=== PATIENT | male | born 1950 | race African-American/Black ===

== ENCOUNTER 2018-07-22 08:16 | Inpatient (IN) | payer SELFPAY ==
[~2018-07-22] VITALS: Ht 175.3 cm; Wt 68.0 kg
[2018-07-22] MEDS ORDERED: ALBUTEROL SULFATE 2.5 MG/3 ML NEBU. NEB ONE (08:30)
--- NOTE | 2018-07-22 09:02 | RAD ---
Chest, PA and Lateral: Technique: PA and lateral views of the chest were obtained. History: Cough, shortness of breath. Comparison: None. Findings: Low lung volumes accentuate heart size and pulmonary vascularity. Mild cardiomegaly. Small bilateral pleural effusions identified with bibasilar lung airspace opacity likely atelectasis or infiltrates. There is mild diffuse prominent bilateral interstitial markings. IMPRESSION: 1. Mild diffuse prominent bilateral interstitial lung markings likely congestive changes. 2. Bibasilar lung airspace opacities likely atelectasis or infiltrates with small bilateral pleural effusions. Electronically signed by: Lionel Mason MD (07/22/2018 8:58 AM) [id number]
[2018-07-22 09:04] LABS: INFLUENZA A PATIENT NEGATIVE (NEGATIVE); INFLUENZA B PATIENT NEGATIVE (NEGATIVE)
[2018-07-22 09:08] LABS: BILIRUBIN,URINE NEGATIVE (NEG); CLARITY,URINE CLEAR; COLOR,URINE YELLOW; NITRITE,URINE NEGATIVE (NEG); PH,URINE 5.5; PROTEIN,URINE >=300 mg/dL (NEG-TRACE); UROBILINOGEN,URINE 0.2 mg/dL (0.2 mg/dL)
[2018-07-22 09:16] LABS: AMORPHOUS SEDIMENT,UR PRESENT /HPF; HYALINE CASTS, URINE FEW /HPF; SPERM,URINE PRESENT /HPF; SQUAMOUS EPITHELIAL CELL,UR MOD /LPF
[2018-07-22 09:17] LABS: BACTERIA,URINE FEW /HPF (0-FEW)
--- NOTE | 2018-07-22 09:47 | EKG ---
[facility] [address] [place] [address] Test Date: 2018-07-22 Test Time: 08:23:23 Pat Name: NEVA PARMAR Department: Room: Gender: M Relish Maker: : 1950 Requested By: MARILYN SNOW Order Number: [id number] Reading MD: Antonio Gallegos MD Measurements Intervals [place] Rate: 101 P: 49 VA: 178 QRS: -56 QRSD: 98 T: 67 QT: 344 QTc: 447 Interpretive Statements SINUS TACHYCARDIA CONSISTENT WITH ANTEROSEPTAL INFARCT PROBABLY OLD CONSIDER PRIOR INFERIOR INFARCT NON-SPECIFIC ST/T CHANGES Electronically Signed On 07-28-2018 9:21:25 PIPE RECOVERY SPECIALIST by Antonio Gallegos MD
[2018-07-22 09:48] LABS: BASO # 0.1 x10^3/uL (0.0-0.2); BASO % 1 % (0-3); EOS # 0.1 x10^3/uL (0.0-0.7); EOS % 2 % (0-3); HEMATOCRIT 30.3 % (39.0-53.0); HEMOGLOBIN 9.8 g/dL (13.0-17.5); LYMPH # 1.6 x10^3/uL (1.0-4.8); LYMPH % 33 % (24-48); MEAN CORPUSCULAR HEMOGLOBIN 28 pg (25-35); MEAN CORPUSCULAR HGB CONC 32 g/dL (31-37); MEAN CORPUSCULAR VOLUME 87 fL (79-100); MONO # 0.6 x10^3/uL (0.0-1.1); MONO % 11 % (0-9); NEUT # 2.6 x10^3uL (1.8-7.7); NEUT % 52 % (31-73); PLATELET COUNT 532 x10^3/uL (140-400); RED CELL DISTRIBUTION WIDTH 13.7 % (11.5-14.5)
[2018-07-22 09:54] LABS: CALCIUM 9.4 mg/dL (8.5-10.1); CREATININE 4.5 mg/dL (0.7-1.3); GFR 15.9; POTASSIUM 5.2 mmol/L (3.5-5.1)
[2018-07-22 10:08] LABS: ALBUMIN 2.6 g/dL (3.4-5.0); ALBUMIN/GLOBULIN RATIO 0.6 (1.0-1.7); TOTAL BILIRUBIN 0.3 mg/dL (0.2-1.0); TOTAL PROTEIN 7.1 g/dL (6.4-8.2)
[2018-07-22] MEDS ORDERED: IV NORMAL SALINE 1000ML BAG 1,000 ML IV ONE (10:15)
[2018-07-22] MEDS ORDERED: SODIUM POLYSTYRENE SULFONATE 15 GM/60 ML ORAL.SUSP. PO ONE (10:15)
--- NOTE | 2018-07-22 10:56 | PHYS DOC ---
Past Medical History Past Medical History: Asthma, COPD, Hypertension Past Surgical History: No Surgical History Alcohol Use: None Drug Use: None Adult General Chief Complaint Chief Complaint: SHORTNESS OF BREATH HPI HPI Patient is a 68 year old male who presents with worsening shortness of air and a cough �3 days. The patient is normally seen at the [place]. He states that he had lab work drawn 3 weeks ago and has never received a call that there were any abnormalities. He denies chest pain. He denies any history of kidney disease. He does not have dialysis. He denies fevers or body aches. He did have one episode of vomiting yesterday. Review of Systems Review of Systems Constitutional: Denies fever or chills [] Eyes: Denies change in visual acuity, redness, or eye pain [] HENT: Denies nasal congestion or sore throat [] Respiratory: See history of present illness Cardiovascular: No additional information not addressed in HPI [] GI: See history of present illness : Denies dysuria or hematuria [] Musculoskeletal: Denies back pain or joint pain [] Integument: Denies rash or skin lesions [] Neurologic: Denies headache, focal weakness or sensory changes [] Endocrine: Denies polyuria or polydipsia [] All other systems were reviewed and found to be within normal limits, except as documented in this note. Current Medications Current Medications Current Medications Medications (Trade) Dose Ordered Sig/Boogie Start Time Stop Time Status Last Admin Dose Admin Albuterol Sulfate (Ventolin Neb Soln) 2.5 mg 1X ONCE 07/22/18 08:30 07/22/18 09:07 DC 07/22/18 09:05 2.5 MG Allergies Allergies Allergies Coded Allergies Type Severity Reaction Last Updated Verified Penicillins Allergy Intermediate 07/22/18 Yes Physical Exam Physical Exam Constitutional: Well developed, well nourished, no acute distress, non-toxic appearance. [] HENT: Normocephalic, atraumatic, bilateral external ears normal, oropharynx moist, no oral exudates, nose normal. [] Eyes: PERRLA, EOMI, conjunctiva normal, no discharge. [] Neck: Normal range of motion, no tenderness, supple, no stridor. [] Cardiovascular:Heart rate regular rhythm, no murmur [] Lungs & Thorax: Bilateral breath sounds wet to bases with no wheezing noted, dry cough noted Abdomen: Bowel sounds normal, soft, no tenderness, no masses, no pulsatile masses. [] Skin: Warm, dry, no erythema, no rash. [] Back: No tenderness, no CVA tenderness. [] Extremities: No tenderness, no cyanosis, no clubbing, ROM intact, no edema. [] Neurologic: Alert and oriented X 3, normal motor function, normal sensory function, no focal deficits noted. [] Psychologic: Affect normal, judgement normal, mood normal. [] Current Patient Data Vital Signs Vital Signs Date Time Temp Pulse Resp B/P (MAP) Pulse Ox O2 Delivery O2 Flow Rate FiO2 07/22/18 09:36 101 20 136/79 (98) 100 Room Air 07/22/18 08:28 98.7 98.7 Lab Values Laboratory Tests Test 07/22/18 08:40 07/22/18 08:50 07/22/18 09:23 Influenza Type A Antigen Negative (NEGATIVE) Influenza Type B Antigen Negative (NEGATIVE) Urine Collection Type Unknown Urine Color Yellow Urine Clarity Clear Urine pH 5.5 Urine Specific [place] 1.020 Urine Protein >=300 mg/dL (NEG-TRACE) Urine Glucose (UA) 100 mg/dL (NEG) Urine Ketones (Stick) Negative mg/dL (NEG) Urine Blood Moderate (NEG) Urine Nitrite Negative (NEG) Urine Bilirubin Negative (NEG) Urine Urobilinogen Dipstick 0.2 mg/dL (0.2 mg/dL) Urine Leukocyte Esterase Negative (NEG) Urine RBC 1-2 /HPF (0-2) Urine WBC 1-4 /HPF (0-4) Urine Squamous Epithelial Cells Mod /LPF Urine Amorphous Sediment Present /HPF Urine Bacteria Few /HPF (0-FEW) Urine Hyaline Casts Few /HPF Urine Sperm Present /HPF White Blood Count 5.0 x10^3/uL (4.0-11.0) Red Blood Count 3.50 x10^6/uL (4.30-5.70) L Hemoglobin 9.8 g/dL (13.0-17.5) L Hematocrit 30.3 % (39.0-53.0) L Mean Corpuscular Volume 87 fL (79-100) Mean Corpuscular Hemoglobin 28 pg (25-35) Mean Corpuscular Hemoglobin Concent 32 g/dL (31-37) Red Cell Distribution Width 13.7 % (11.5-14.5) Platelet Count 532 x10^3/uL (140-400) H Neutrophils (%) (Auto) 52 % (31-73) Lymphocytes (%) (Auto) 33 % (24-48) Monocytes (%) (Auto) 11 % (0-9) H Eosinophils (%) (Auto) 2 % (0-3) Basophils (%) (Auto) 1 % (0-3) Neutrophils # (Auto) 2.6 x10^3uL (1.8-7.7) Lymphocytes # (Auto) 1.6 x10^3/uL (1.0-4.8) Monocytes # (Auto) 0.6 x10^3/uL (0.0-1.1) Eosinophils # (Auto) 0.1 x10^3/uL (0.0-0.7) Basophils # (Auto) 0.1 x10^3/uL (0.0-0.2) Sodium Level 140 mmol/L (136-145) Potassium Level 5.2 mmol/L (3.5-5.1) H Chloride Level 104 mmol/L (98-107) Carbon Dioxide Level 22 mmol/L (21-32) Anion Gap 14 (6-14) Blood Urea Nitrogen 61 mg/dL (8-26) H Creatinine 4.5 mg/dL (0.7-1.3) H Estimated GFR (Cockcroft-Gault) 15.9 BUN/Creatinine Ratio 14 (6-20) Glucose Level 245 mg/dL (70-99) H Lactic Acid Level 2.0 mmol/L (0.4-2.0) Calcium Level 9.4 mg/dL (8.5-10.1) Total Bilirubin 0.3 mg/dL (0.2-1.0) Aspartate Amino Transferase (AST) 51 U/L (15-37) H Alanine Aminotransferase (ALT) 105 U/L (16-63) H Alkaline Phosphatase 206 U/L (46-116) H Troponin I Quantitative 1.190 ng/mL (0.000-0.055) TN-Zuf-X-Type Natriuretic Peptide > 49715 pg/mL (0-124) H Total Protein 7.1 g/dL (6.4-8.2) Albumin 2.6 g/dL (3.4-5.0) L Albumin/Globulin Ratio 0.6 (1.0-1.7) L Laboratory Tests 07/22/18 09:23 Laboratory Tests 07/22/18 09:23 EKG EKG [] Radiology/Procedures Radiology/Procedures [] Course & Med Decision Making Course & Med Decision Making Pertinent Labs and Imaging studies reviewed. (See chart for details) []The patient is being admitted to Dr. Tay's service. Pulmonology, cardiology and nephrology have all been consulted. The patient was given a liter of fluids and Kayexalate in the emergency department. He was also given a nebulizer treatment. The patient is in agreement with this plan. Dragon Disclaimer Dragon Disclaimer This electronic medical record was generated, in whole or in part, using a voice recognition dictation system. Departure Departure Impression: Primary Impression: Hyperkalemia Additional Impressions: Renal failure CHF (congestive heart failure) Elevated troponin Disposition: ADMITTED INPATIENT Admitting Physician: Other Condition: GUARDED Referrals: UNKNOWN PCP NAME (PCP) Problem Qualifiers MARILYN SNOW APRN Jul 22, 2018 10:56
--- NOTE | 2018-07-22 10:58 | RAD ---
Examination: Ultrasound kidneys HISTORY: History of renal failure COMPARISON: None available Findings: The right kidney measures 9.8 x 4.4 x 4.4 cm. The left kidney measures 9.9 x 4.0 x 4.8 cm. No evidence of hydronephrosis. The urinary bladder is mildly distended. Partially visualized moderate bilateral pleural effusions. IMPRESSION: 1. No evidence of hydronephrosis. 2. Partially visualized moderate bilateral pleural effusions. Electronically signed by: Lionel Mason MD (07/22/2018 10:54 AM) [id number]
[2018-07-22 11:20] VITALS: BP 149/91
[2018-07-22] MEDS ORDERED: LISI2.5T PO (12:21)
[2018-07-22] MEDS ORDERED: METF500T PO (12:21)
[2018-07-22] MEDS ORDERED: ACETAMINOPHEN 325 MG TABLET. PO PRN (13:00)
[2018-07-22] MEDS ORDERED: 0.9 % SODIUM CHLORIDE 10 ML DISP.SYRIN. IV PRN (13:00)
[2018-07-22] MEDS ORDERED: ELECTROLYTE (NON-ICU) PROTOCOL MC PRN (13:00)
[2018-07-22] MEDS ORDERED: ONDANSETRON PF 4 MG/2 ML VIAL. IV PRN (13:00)
[2018-07-22] MEDS ORDERED: HYDROcodone/APAP 5/325MG 1 TAB TABLET PO PRN (13:00)
[2018-07-22] MEDS ORDERED: ZOLPIDEM 5 MG TABLET. PO PRN (13:00)
[2018-07-22] MEDS ORDERED: LACTULOSE 20 GM/30 ML SOLUTION. PO PRN (13:00)
--- NOTE | 2018-07-22 13:34 | CONS ---
DATE OF CONSULTATION: 07/22/2018 PULMONARY CONSULTATION ATTENDING PHYSICIAN: Hill Tay MD. REASON FOR CONSULTATION: Dyspnea. HISTORY OF PRESENT ILLNESS: The patient is a 68-year-old male who usually follows at [place]. He said he has some lab work drawn 3 weeks ago, but he did not receive a call regarding results. He presented to the hospital with shortness of breath. He said he has a cough, which has been present for 3 days. He said he took Mucinex as a result he was able to bring up phlegm, which was green in color. No fever, no chills, no chest pains. He had one episode of vomiting, but no diarrhea, no constipation. He has some lower extremity edema. A chest x-ray was reviewed by me and it shows prominent interstitial markings likely related to congestive heart failure and bibasilar infiltrates. I have been asked to see him for further evaluation. PAST MEDICAL HISTORY: Significant for history of asthma, hypertension and possible CKD. PAST SURGICAL HISTORY: No recent surgery. ALLERGIES: PENICILLIN. MEDICATIONS: Reviewed as listed in the MRAD. REVIEW OF SYSTEMS: Twelve-point system obtained. Pertinent positives discussed in my history of present illness, otherwise noncontributory. All systems that were negative were reviewed as well. FAMILY HISTORY: Noncontributory to lungs. SOCIAL HISTORY: Nonsmoker. PHYSICAL EXAMINATION: VITAL SIGNS: Reviewed. Blood pressure initially was 164/97, afebrile, pulse ox is 100% on room air. NECK: Supple. LUNGS: Diminished breath sounds at the bases. CARDIOVASCULAR: Regular rate and rhythm. ABDOMEN: Soft, nontender. EXTREMITIES: With bilateral pitting edema. LABORATORY DATA: Reviewed. Influenza screen is negative. BUN is 61, creatinine 4.5. ProBNP is 35,000 and troponin is 1.1. White cell count is 5.0. IMPRESSION: 1. Dyspnea secondary to bilateral interstitial edema, likely acute systolic/diastolic heart failure. Clinically, less likely pneumonia, but cannot be ruled out. 2. Renal failure could be acute on chronic. 3. No significant history of tobacco use. 4. Abnormal chest x-ray with bilateral interstitial infiltrates and bibasilar airspace opacities. Likely congestive heart failure, but cannot exclude pneumonia. We will obtain noncontrast CT chest and also procalcitonin level. 5. Moderate protein-calorie malnutrition. 6. Abnormal liver function test could be related to hypoperfusion. RECOMMENDATIONS: 1. Oxygen p.r.n. 2. Obtain echocardiogram. 3. Noncontrast CT chest. 4. Procalcitonin level. 5. Renal consult and recommendation. 6. Follow liver function tests. 7. Difficult to diurese due to renal failure, may need dialysis. We will await Nephrology recommendation. 8. I discussed with RN and ER physician. We will follow along with you. DANISHA FAM MD DR: FAMILIA/elke JOB#: [id number] / [id number]
[2018-07-22] MEDS: HEPARIN for SUB-Q USE 5,000 UNIT/ML VIAL. SQ SCH ×2 (14:00→21:08)
[2018-07-22] MEDS: SPIRONOLACTONE 25 MG TABLET PO SCH (15:01)
[2018-07-22] MEDS: LISINOPRIL 20 MG TABLET PO SCH (15:02)
[2018-07-22] MEDS: NITROGLYCERIN 0.2MG/HR PATCH. TD SCH (15:05)
[2018-07-22] MEDS: FUROSEMIDE 40 MG/4 ML VIAL. IV SCH (15:06)
--- NOTE | 2018-07-22 15:09 | PDOC2 ---
NORA MACE EXECUTIVE CREATIVE DIRECTOR 07/22/18 1509: CARDIAC CONSULT DATE OF CONSULT Date of Consult DATE: 07/22/18 TIME: 15:07 REASON FOR CONSULT Reason for Consult: CHF REFERRING PHYSICIAN Referring Physician: Dr. Tay SOURCE Source: Chart review, Patient HISTORY OF PRESENT ILLNESS HISTORY OF PRESENT ILLNESS This is a 68 yo male who presented with secondary to shortness of breath and cough. Shortness of breath has been present for the last couple of day. Associated with a cough productive of clear sputum. Has had some mild LE edema. Denies any chest pain, palpitations, dizziness, diaphoresis, or nausea/ vomiting. Denies any history of CAD or renal insufficiency. [facility] blood drawn 3 weeks ago and did not get a call regarding abnormal labs. Cr noted to be 4.5 on initial labs. CXR consistent with CHF. PAST MEDICAL HISTORY Cardiovascular: HTN Pulmonary: Asthma, COPD Endocrine: Diabetes CURRENT MEDICATIONS CURRENT MEDICATIONS Current Medications Medications (Trade) Dose Ordered Sig/Boogie Route PRN Reason Start Time Stop Time Status Last Admin Dose Admin Albuterol Sulfate (Ventolin Neb Soln) 2.5 mg 1X ONCE NEB 07/22/18 08:30 07/22/18 09:07 DC 07/22/18 09:05 Sodium Chloride 1,000 ml @ 1,000 mls/hr 1X ONCE IV 07/22/18 10:15 07/22/18 11:14 DC 07/22/18 10:20 Sodium Polystyrene Sulfonate (Kayexalate) 15 gm 1X ONCE PO 07/22/18 10:15 07/22/18 10:16 DC 07/22/18 10:20 Lisinopril (Prinivil) 20 mg DAILY PO 07/22/18 14:00 07/22/18 15:02 Nitroglycerin (Nitro-Dur) 1 patch DAILY TD 07/22/18 14:00 07/22/18 15:05 Furosemide (Lasix) 40 mg BID92 IV 07/22/18 14:00 07/22/18 15:06 Spironolactone (Aldactone) 25 mg DAILY PO 07/22/18 14:00 07/22/18 15:01 ALLERGIES ALLERGIES: Coded Allergies: Penicillins (Verified Allergy, Intermediate, 07/22/18) ROS Review of System 14 point ROS conducted with pertinent positives noted above in HPI. PHYSICAL EXAM General: Alert, Oriented X3, Cooperative, No acute distress HEENT: Atraumatic, Mucous membr. moist/pink Lungs: Other (bibasilar crackles) Heart: Regular rate, Other (2/6 systolic murmur, S3) Abdomen: Soft, No tenderness Extremities: Other (1+ bilateral LE edema ) Skin: No significant lesion Neuro: Normal speech, Sensation intact Psych/Mental Status: Mental status NL, Mood NL MUSCULOSKELETAL: Osteoarthritic changes both hands VITALS VITALS Vital Signs Date Time Temp Pulse Resp B/P (MAP) Pulse Ox O2 Delivery O2 Flow Rate FiO2 07/22/18 15:02 101 156/88 07/22/18 11:23 20 94 Room Air 07/22/18 08:28 98.7 98.7 LABS Lab: Laboratory Tests Test 07/22/18 08:40 07/22/18 08:50 07/22/18 09:23 Influenza Type A Antigen Negative (NEGATIVE) Influenza Type B Antigen Negative (NEGATIVE) Urine Collection Type Unknown Urine Color Yellow Urine Clarity Clear Urine pH 5.5 Urine Specific [place] 1.020 Urine Protein >=300 mg/dL (NEG-TRACE) Urine Glucose (UA) 100 mg/dL (NEG) Urine Ketones (Stick) Negative mg/dL (NEG) Urine Blood Moderate (NEG) Urine Nitrite Negative (NEG) Urine Bilirubin Negative (NEG) Urine Urobilinogen Dipstick 0.2 mg/dL (0.2 mg/dL) Urine Leukocyte Esterase Negative (NEG) Urine RBC 1-2 /HPF (0-2) Urine WBC 1-4 /HPF (0-4) Urine Squamous Epithelial Cells Mod /LPF Urine Amorphous Sediment Present /HPF Urine Bacteria Few /HPF (0-FEW) Urine Hyaline Casts Few /HPF Urine Sperm Present /HPF White Blood Count 5.0 x10^3/uL (4.0-11.0) Red Blood Count 3.50 x10^6/uL (4.30-5.70) Hemoglobin 9.8 g/dL (13.0-17.5) Hematocrit 30.3 % (39.0-53.0) Mean Corpuscular Volume 87 fL (79-100) Mean Corpuscular Hemoglobin 28 pg (25-35) Mean Corpuscular Hemoglobin Concent 32 g/dL (31-37) Red Cell Distribution Width 13.7 % (11.5-14.5) Platelet Count 532 x10^3/uL (140-400) Neutrophils (%) (Auto) 52 % (31-73) Lymphocytes (%) (Auto) 33 % (24-48) Monocytes (%) (Auto) 11 % (0-9) Eosinophils (%) (Auto) 2 % (0-3) Basophils (%) (Auto) 1 % (0-3) Neutrophils # (Auto) 2.6 x10^3uL (1.8-7.7) Lymphocytes # (Auto) 1.6 x10^3/uL (1.0-4.8) Monocytes # (Auto) 0.6 x10^3/uL (0.0-1.1) Eosinophils # (Auto) 0.1 x10^3/uL (0.0-0.7) Basophils # (Auto) 0.1 x10^3/uL (0.0-0.2) Sodium Level 140 mmol/L (136-145) Potassium Level 5.2 mmol/L (3.5-5.1) Chloride Level 104 mmol/L (98-107) Carbon Dioxide Level 22 mmol/L (21-32) Anion Gap 14 (6-14) Blood Urea Nitrogen 61 mg/dL (8-26) Creatinine 4.5 mg/dL (0.7-1.3) Estimated GFR (Cockcroft-Gault) 15.9 BUN/Creatinine Ratio 14 (6-20) Glucose Level 245 mg/dL (70-99) Lactic Acid Level 2.0 mmol/L (0.4-2.0) Calcium Level 9.4 mg/dL (8.5-10.1) Total Bilirubin 0.3 mg/dL (0.2-1.0) Aspartate Amino Transf (AST/SGOT) 51 U/L (15-37) Alanine Aminotransferase (ALT/SGPT) 105 U/L (16-63) Alkaline Phosphatase 206 U/L (46-116) Troponin I Quantitative 1.190 ng/mL (0.000-0.055) FC-Bwe-I-Type Natriuretic Peptide > 94565 pg/mL (0-124) Total Protein 7.1 g/dL (6.4-8.2) Albumin 2.6 g/dL (3.4-5.0) Albumin/Globulin Ratio 0.6 (1.0-1.7) Procalcitonin 0.18 ng/mL (0.00-0.10) ASSESSMENT/PLAN ASSESSMENT/PLAN 1. Acute respiratory failure secondary to a/c HF 2. Acute on chronic diastolic HF with possible systolic dysfunction 3. NSTEMI; initial trop 1.1. Possible type II, demand ischemia in the setting of renal failure and a/c HF 4. MAE on ? CKD; Cr 4.5 upon arrival. Nephrology consulted 5. Hyperkalemia 6. Hypertension; controlled 7. Diabetes, II 8. Elevated LFTs Recommendations Add ASA, BB Trend troponin, check lipids, PT/INR Consider heparin gtt if further troponin elevation noted Diuresis with close monitoring of renal function Check echo to assess LV systolic function Further ischemic workup once fluid status improves. Follow renal recommendations DARRYL PARKER MD 07/22/18 1604: CARDIAC CONSULT ASSESSMENT/PLAN ASSESSMENT/PLAN Patient seen and examined. Agree with PROSPECTING OBSERVER's assessment and plan. Acute respiratory failure most probably secondary to acute on chronic diastolic heart failure Check 2-D echo to assess LV systolic function Continue diuresis. Nephrology team has been consulted for acute on chronic renal insufficiency Non-STEMI most probably secondary to combination of demand ischemia and renal insufficiency We will consider ischemic evaluation once fluid status improves Thank you for your consultation NORA MACE APRN Jul 22, 2018 15:09 DARRYL PARKER MD Jul 22, 2018 16:04
[2018-07-22 15:25] VITALS: BP 127/74
--- NOTE | 2018-07-22 16:19 | CARD ---
MR#: [id number] Date of Study: 07/22/2018 Ordering Physician: JUANJO DE LUNA, Referring Physician: JUANJO DE LUNA, Tech: Tamra Curran APPROVED REPORT EXAM: Two-dimensional and M-mode echocardiogram with Doppler and color Doppler. Other Information Quality : GoodHR: 105bpm INDICATION Congestive Heart Failure RISK FACTORS Hypertension Hyperlipidemia Diabetes 2D DIMENSIONS RVDd2.9 (2.9-3.5cm)Left Atrium(2D)3.8 (1.6-4.0cm) IVSd1.3 (0.7-1.1cm)Aortic Root(2D)3.1 (2.0-3.7cm) LVDd5.6 (3.9-5.9cm)LVOT Diameter2.4 (1.8-2.4cm) PWd1.4 (0.7-1.1cm)LVDs4.8 (2.5-4.0cm) FS (%) 13.2 %SV42.1 ml Aortic Valve AoV Peak Loi.103.0cm/sAoV VTI11.9cm AO Peak GR.4.2mmHgLVOT Peak Loi.61.9cm/s LVOT VTI 7.99cmAO Mean GR.2mmHg TAMANNA (VMAX)2.61td5FOC (VTI)3.15cm2 Pulmonary Valve PV Peak Xdcmidgy21.5cm/sPV Peak Grad.2mmHg Tricuspid Valve RAP [id number] Peak Gr.36mmHg [id number] LEFT VENTRICLE The left ventricle is normal size. There is mild concentric left ventricular hypertrophy. The systoli c function is moderately to severely impaired. The Ejection Fraction is 30-35%. There is global hypok inesis of the left ventricle. Diastology indeterminate due to atrial fibrillation. RIGHT VENTRICLE The right ventricle is normal size. There is normal right ventricular wall thickness. The right ventr icular systolic function is normal. ATRIA The left atrium size is normal. The right atrium is borderline dilated. The interatrial septum is int act with no evidence for an atrial septal defect or patent foramen ovale as noted on 2-D or Doppler i maging. AORTIC VALVE The aortic valve is thickened but opens well. Doppler and Color Flow revealed no significant aortic r egurgitation. There is no significant aortic valvular stenosis. MITRAL VALVE The mitral valve is normal in structure and function. There is no evidence of mitral valve prolapse. There is no mitral valve stenosis. Doppler and Color-flow revealed trace mitral regurgitation. TRICUSPID VALVE The tricuspid valve is normal in structure and function. Doppler and Color Flow revealed trace tricus pid regurgitation. There is no tricuspid valve stenosis. PULMONIC VALVE The pulmonary valve is normal in structure and function. Doppler and Color Flow revealed mild pulmoni c valvular regurgitation. GREAT VESSELS The aortic root is normal in size. The IVC is normal in size and collapses >50% with inspiration. PERICARDIAL EFFUSION There is moderate left pleural effusion. There is a trace pericardial effusion with no hemodynamic si gnificance. Critical Notification Critical Value: No <Conclusion> The left ventricle is normal size. The systolic function is moderately to severely impaired. The Ejection Fraction is 30-35%. There is global hypokinesis of the left ventricle. There is mild concentric left ventricular hypertrophy. There is no significant aortic valvular stenosis. Doppler and Color Flow revealed no significant aortic regurgitation. Doppler and Color-flow revealed trace mitral regurgitation. Doppler and Color Flow revealed trace tricuspid regurgitation. There is a trace pericardial effusion with no hemodynamic significance. Signed by : Neto Martinez MD Electronically Approved : 07/22/2018 16:16:35
[2018-07-22] MEDS ORDERED: DEXTROSE 50% 25 GM / 50ML DISP.SYRIN. IV PRN (16:45)
--- NOTE | 2018-07-22 16:55 | RAD ---
Examination: CT CHEST WO CONTRAST History: pulmonary edema Comparison/Correlation: None Findings: Axial images of the chest were obtained without contrast. Sagittal and coronal reformatted images were provided. Moderate to large right pleural effusion is present. Moderate-sized left pleural effusion noted. Scattered linear atelectasis at the lung bases noted. Right lower lobe atelectasis is notable. No pneumothorax. Trachea is unremarkable. Coronary arterial calcification noted. Partially visualized upper abdomen is unremarkable. Bony structures are unremarkable. Impression: Moderate to large bilateral pleural effusions with scattered bibasilar atelectasis and right lower lobe atelectasis. Electronically signed by: Ashish Aiken MD (07/22/2018 4:50 PM) [facility]
[2018-07-22] MEDS ORDERED: ASPIRIN 325 MG TABLET PO ONE (17:15)
[2018-07-22] MEDS: CARVEDILOL 3.125 MG TABLET. PO SCH (17:20)
[2018-07-22] MEDS: INSULIN LISPRO 300 UNITS/3 ML INSULN.PEN. SQ SCH (17:25)
--- NOTE | 2018-07-22 18:14 | PDOC1 ---
History and Physical Date of Admission Date of Admission 07/22/2018 Identification/Chief Complaint Chief Complaint I couldn't breathe Source Source: Chart review, Patient History of Present Illness History of Present Illness Patient is a 68-year-old gentleman who has a past medical history of hypertension diabetes. The patient [facility]. Comes today with a history of more or less 2 days off increasingly dyspnea that started on exertion and has progressively gotten worse. The patient refers some bouts of paroxysmal nocturnal dyspnea in the past and today progressed to orthopnea reason why he decided to come to the emergency department. Of note is that the patient also refers some congestion and sinus pressure. He has self medicated at home with Mucinex with very little recently. His symptoms. The patient denies history of CAD, no history of congestive heart failure but the patient relates having an increased salt intake recently. He lives at home by himself and refers being able to cook but has been eating TV dinners recently and a lot of cold cuts and can soups. He was evaluated in the emergency department and found to be experiencing symptoms compatible with pulmonary edema as related by the ER nurse practitioner. At the time of my evaluation the patient was calm and in no apparent distress most likely due to the Lasix therapy that he received. Of note is that the patient also had some electrolyte disturbances with hyperkalemia and renal dysfunction. The patient denies having a history of kidney disease and no one has related to him that he has renal problems. He is being admitted to the telemetry floor for further evaluation and treatment. The patient denies headache no blurred vision no slurred speech no chest pain or palpitations has invoice no abdominal pain nausea or vomiting no other complaints voiced during my visit. HIS concerns were addressed to the best of my abilities reassurance has been provided Past Medical History Cardiovascular: HTN Pulmonary: Asthma, COPD Endocrine: Diabetes Current Problem List Problem List Problems Medical Problems: (1) CHF (congestive heart failure) Status: Acute (2) Elevated troponin Status: Acute (3) Hyperkalemia Status: Acute (4) Renal failure Status: Acute Current Medications Current Medications Current Medications Medications (Trade) Dose Ordered Sig/Boogie Start Time Stop Time Status Last Admin Dose Admin Acetaminophen (Tylenol) 650 mg PRN Q6HRS PRN 07/22/18 13:00 Acetaminophen/ Hydrocodone Bitart (Lortab 5/325) 1 tab PRN Q4HRS PRN 07/22/18 13:00 Albuterol Sulfate (Ventolin Neb Soln) 2.5 mg 1X ONCE 07/22/18 08:30 07/22/18 09:07 DC 07/22/18 09:05 2.5 MG Aspirin (Uh[place]in Aspirin) 325 mg 1X ONCE 07/22/18 17:15 07/22/18 17:16 DC 07/22/18 17:18 325 MG Aspirin (Ecotrin) 81 mg [id number] 07/23/18 08:00 Carvedilol (Coreg) 3.125 mg BIDWMEALS 07/22/18 17:30 07/22/18 17:20 3.125 MG Dextrose (Dextrose 50%-Water Syringe) 12.5 gm PRN Q15MIN PRN 07/22/18 16:45 Furosemide (Lasix) 40 mg BID92 07/22/18 14:00 07/22/18 15:06 40 MG Heparin Sodium (Porcine) (Heparin Sodium) 5,000 unit Q12HR 07/22/18 14:00 Info (Non-Icu Electrolyte Protocol) 1 ea PRN DAILY PRN 07/22/18 13:00 Insulin Human Lispro (HumaLOG) 0-5 UNITS TIDWMEALS 07/22/18 17:00 07/22/18 17:25 3 UNITS Lactulose (Lactulose) 20 gm PRN Q12HR PRN 07/22/18 13:00 Lisinopril (Prinivil) 20 mg DAILY 07/22/18 14:00 07/22/18 15:02 20 MG Nitroglycerin (Nitro-Dur) 1 patch DAILY 07/22/18 14:00 07/22/18 15:05 1 PATCH Ondansetron HCl (Zofran) 4 mg PRN Q6HRS PRN 07/22/18 13:00 Senna/Docusate Sodium (Senna Plus) 1 tab BID 07/22/18 21:00 Sodium Polystyrene Sulfonate (Kayexalate) 15 gm 1X ONCE 07/22/18 10:15 07/22/18 10:16 DC 07/22/18 10:20 15 GM Sodium Chloride (Normal Saline Flush) 3 ml QSHIFT PRN 07/22/18 13:00 Spironolactone (Aldactone) 25 mg DAILY 07/22/18 14:00 07/22/18 15:01 25 MG Zolpidem Tartrate (Ambien) 5 mg PRN QHS PRN 07/22/18 13:00 Allergies Allergies Allergies Coded Allergies Type Severity Reaction Last Updated Verified Penicillins Allergy Intermediate 07/22/18 Yes ROS Review of System CONSTITUTIONAL: No fever or chills EYES: No recent changes SKIN: No rash or itching CARDIOVASCULAR: No chest pain, syncope, palpitations, or edema RESPIRATORY: No SOB or cough GASTROINTESTINAL: No nausea, vomiting or abdominal pain NEUROLOGICAL: No headaches or weakness ENDOCRINE: No cold or heat intolerance GENITOURINARY: No urgency or frequency of urination MUSCULOSKELETAL: No back pain or joint pain LYMPHATICS: No enlarged lymph nodes PSYCHIATRIC: No anxiety or depression Physical Exam Physical Exam GEN.: No apparent distress. Alert and oriented. HEENT: Head is normocephalic, atraumatic NECK: Supple. LUNGS: Clear to auscultation. HEART: RRR, S1, S2 present. Peripheral pulses intact ABDOMEN: Soft, nontender. Positive bowel sounds. EXTREMITIES: Without any cyanosis. NEUROLOGIC: Normal speech, normal tone PSYCHIATRIC: Normal affect, normal mood. SKIN: No ulcerations Vitals Vitals Vital Signs Date Time Temp Pulse Resp B/P (MAP) Pulse Ox O2 Delivery O2 Flow Rate FiO2 07/22/18 17:20 107 133/71 07/22/18 15:25 97.8 20 92 Room Air 97.8 Labs Labs Laboratory Tests Test 07/22/18 08:40 07/22/18 08:50 07/22/18 09:23 07/22/18 17:06 Influenza Type A Antigen Negative (NEGATIVE) Influenza Type B Antigen Negative (NEGATIVE) Urine Collection Type Unknown Urine Color Yellow Urine Clarity Clear Urine pH 5.5 Urine Specific [place] 1.020 Urine Protein >=300 mg/dL (NEG-TRACE) Urine Glucose (UA) 100 mg/dL (NEG) Urine Ketones (Stick) Negative mg/dL (NEG) Urine Blood Moderate (NEG) Urine Nitrite Negative (NEG) Urine Bilirubin Negative (NEG) Urine Urobilinogen Dipstick 0.2 mg/dL (0.2 mg/dL) Urine Leukocyte Esterase Negative (NEG) Urine RBC 1-2 /HPF (0-2) Urine WBC 1-4 /HPF (0-4) Urine Squamous Epithelial Cells Mod /LPF Urine Amorphous Sediment Present /HPF Urine Bacteria Few /HPF (0-FEW) Urine Hyaline Casts Few /HPF Urine Sperm Present /HPF White Blood Count 5.0 x10^3/uL (4.0-11.0) Red Blood Count 3.50 x10^6/uL (4.30-5.70) Hemoglobin 9.8 g/dL (13.0-17.5) Hematocrit 30.3 % (39.0-53.0) Mean Corpuscular Volume 87 fL (79-100) Mean Corpuscular Hemoglobin 28 pg (25-35) Mean Corpuscular Hemoglobin Concent 32 g/dL (31-37) Red Cell Distribution Width 13.7 % (11.5-14.5) Platelet Count 532 x10^3/uL (140-400) Neutrophils (%) (Auto) 52 % (31-73) Lymphocytes (%) (Auto) 33 % (24-48) Monocytes (%) (Auto) 11 % (0-9) Eosinophils (%) (Auto) 2 % (0-3) Basophils (%) (Auto) 1 % (0-3) Neutrophils # (Auto) 2.6 x10^3uL (1.8-7.7) Lymphocytes # (Auto) 1.6 x10^3/uL (1.0-4.8) Monocytes # (Auto) 0.6 x10^3/uL (0.0-1.1) Eosinophils # (Auto) 0.1 x10^3/uL (0.0-0.7) Basophils # (Auto) 0.1 x10^3/uL (0.0-0.2) Sodium Level 140 mmol/L (136-145) Potassium Level 5.2 mmol/L (3.5-5.1) Chloride Level 104 mmol/L (98-107) Carbon Dioxide Level 22 mmol/L (21-32) Anion Gap 14 (6-14) Blood Urea Nitrogen 61 mg/dL (8-26) Creatinine 4.5 mg/dL (0.7-1.3) Estimated GFR (Cockcroft-Gault) 15.9 BUN/Creatinine Ratio 14 (6-20) Glucose Level 245 mg/dL (70-99) Lactic Acid Level 2.0 mmol/L (0.4-2.0) Calcium Level 9.4 mg/dL (8.5-10.1) Total Bilirubin 0.3 mg/dL (0.2-1.0) Aspartate Amino Transf (AST/SGOT) 51 U/L (15-37) Alanine Aminotransferase (ALT/SGPT) 105 U/L (16-63) Alkaline Phosphatase 206 U/L (46-116) Troponin I Quantitative 1.190 ng/mL (0.000-0.055) MT-Wtq-X-Type Natriuretic Peptide > 05143 pg/mL (0-124) Total Protein 7.1 g/dL (6.4-8.2) Albumin 2.6 g/dL (3.4-5.0) Albumin/Globulin Ratio 0.6 (1.0-1.7) Procalcitonin 0.18 ng/mL (0.00-0.10) Glucose (Fingerstick) 219 mg/dL (70-99) Laboratory Tests Test 07/22/18 08:40 07/22/18 08:50 07/22/18 09:23 07/22/18 17:06 Influenza Type A Antigen Negative (NEGATIVE) Influenza Type B Antigen Negative (NEGATIVE) Urine Collection Type Unknown Urine Color Yellow Urine Clarity Clear Urine pH 5.5 Urine Specific [place] 1.020 Urine Protein >=300 mg/dL (NEG-TRACE) Urine Glucose (UA) 100 mg/dL (NEG) Urine Ketones (Stick) Negative mg/dL (NEG) Urine Blood Moderate (NEG) Urine Nitrite Negative (NEG) Urine Bilirubin Negative (NEG) Urine Urobilinogen Dipstick 0.2 mg/dL (0.2 mg/dL) Urine Leukocyte Esterase Negative (NEG) Urine RBC 1-2 /HPF (0-2) Urine WBC 1-4 /HPF (0-4) Urine Squamous Epithelial Cells Mod /LPF Urine Amorphous Sediment Present /HPF Urine Bacteria Few /HPF (0-FEW) Urine Hyaline Casts Few /HPF Urine Sperm Present /HPF White Blood Count 5.0 x10^3/uL (4.0-11.0) Red Blood Count 3.50 x10^6/uL (4.30-5.70) Hemoglobin 9.8 g/dL (13.0-17.5) Hematocrit 30.3 % (39.0-53.0) Mean Corpuscular Volume 87 fL (79-100) Mean Corpuscular Hemoglobin 28 pg (25-35) Mean Corpuscular Hemoglobin Concent 32 g/dL (31-37) Red Cell Distribution Width 13.7 % (11.5-14.5) Platelet Count 532 x10^3/uL (140-400) Neutrophils (%) (Auto) 52 % (31-73) Lymphocytes (%) (Auto) 33 % (24-48) Monocytes (%) (Auto) 11 % (0-9) Eosinophils (%) (Auto) 2 % (0-3) Basophils (%) (Auto) 1 % (0-3) Neutrophils # (Auto) 2.6 x10^3uL (1.8-7.7) Lymphocytes # (Auto) 1.6 x10^3/uL (1.0-4.8) Monocytes # (Auto) 0.6 x10^3/uL (0.0-1.1) Eosinophils # (Auto) 0.1 x10^3/uL (0.0-0.7) Basophils # (Auto) 0.1 x10^3/uL (0.0-0.2) Sodium Level 140 mmol/L (136-145) Potassium Level 5.2 mmol/L (3.5-5.1) Chloride Level 104 mmol/L (98-107) Carbon Dioxide Level 22 mmol/L (21-32) Anion Gap 14 (6-14) Blood Urea Nitrogen 61 mg/dL (8-26) Creatinine 4.5 mg/dL (0.7-1.3) Estimated GFR (Cockcroft-Gault) 15.9 BUN/Creatinine Ratio 14 (6-20) Glucose Level 245 mg/dL (70-99) Lactic Acid Level 2.0 mmol/L (0.4-2.0) Calcium Level 9.4 mg/dL (8.5-10.1) Total Bilirubin 0.3 mg/dL (0.2-1.0) Aspartate Amino Transf (AST/SGOT) 51 U/L (15-37) Alanine Aminotransferase (ALT/SGPT) 105 U/L (16-63) Alkaline Phosphatase 206 U/L (46-116) Troponin I Quantitative 1.190 ng/mL (0.000-0.055) LT-Cvn-J-Type Natriuretic Peptide > 41362 pg/mL (0-124) Total Protein 7.1 g/dL (6.4-8.2) Albumin 2.6 g/dL (3.4-5.0) Albumin/Globulin Ratio 0.6 (1.0-1.7) Procalcitonin 0.18 ng/mL (0.00-0.10) Glucose (Fingerstick) 219 mg/dL (70-99) VTE Prophylaxis Ordered VTE Prophylaxis Devices: Yes VTE Pharmacological Prophylaxi: No Assessment/Plan Assessment/Plan Pulmonary edema Dyspnea secondary to the above Elevated troponin asymptomatic Chronic kidney disease stage IIIb most likely Congestive heart failure which may be a combined dysfunction. No recorded ejection fraction in our institution Hypertension fairly controlled Diabetes mellitus type 2 Normocytic anemia of chronic inflammation Plan Observe a 2 g sodium diet Fluid restriction Follow troponin trend We'll consult cardiology [facility] We'll give nitroglycerin when necessary for discomfort Will start lisinopril We'll do diuresis with Lasix Further recommendations will be based on the clinical course consult pulmonology for his cough DVT prohpylaxis: scd and JUANJO Tolliver MD Jul 22, 2018 18:14
[2018-07-22] MEDS ORDERED: GLIP5TAB10 PO (18:15)
[2018-07-22 19:30] VITALS: BP 122/78
[2018-07-22] MEDS: SENNOSIDES/DOCUSATE 8.6/50MG TABLET. PO SCH (21:02)
[2018-07-22] MEDS: BENZONATATE 100 MG CAPSULE. PO PRN (21:09)
[2018-07-22 23:00] VITALS: BP 129/72
[2018-07-22] MEDS: guaiFENesin/CODEINE 100mg/10mg 5 ML LIQUID PO PRN (23:08)
[2018-07-23 03:00] VITALS: BP 120/72
[2018-07-23 05:11] LABS: BASO # 0.1 x10^3/uL (0.0-0.2); BASO % 2 % (0-3); EOS # 0.1 x10^3/uL (0.0-0.7); EOS % 3 % (0-3); HEMATOCRIT 28.5 % (39.0-53.0); HEMOGLOBIN 9.3 g/dL (13.0-17.5); LYMPH # 1.3 x10^3/uL (1.0-4.8); LYMPH % 32 % (24-48); MEAN CORPUSCULAR HEMOGLOBIN 28 pg (25-35); MEAN CORPUSCULAR HGB CONC 33 g/dL (31-37); MEAN CORPUSCULAR VOLUME 86 fL (79-100); MONO # 0.4 x10^3/uL (0.0-1.1); MONO % 10 % (0-9); NEUT # 2.2 x10^3uL (1.8-7.7); NEUT % 54 % (31-73); PLATELET COUNT 453 x10^3/uL (140-400); RED CELL DISTRIBUTION WIDTH 13.6 % (11.5-14.5); WHITE BLOOD COUNT 4.1 x10^3/uL (4.0-11.0)
[2018-07-23] MEDS: guaiFENesin/CODEINE 100mg/10mg 5 ML LIQUID PO PRN ×4 (05:20→22:31)
[2018-07-23 05:42] LABS: CALCIUM 9.2 mg/dL (8.5-10.1); CREATININE 4.6 mg/dL (0.7-1.3); GFR 15.5; POTASSIUM 4.6 mmol/L (3.5-5.1)
[2018-07-23 06:25] LABS: CHOLESTEROL/HDL RATIO 4.7
[2018-07-23 07:00] VITALS: BP 136/77
[2018-07-23] MEDS: SPIRONOLACTONE 25 MG TABLET PO SCH (07:51)
[2018-07-23] MEDS: ASPIRIN ENTERIC COATED 81 MG TABLET.DR. PO SCH (07:51)
[2018-07-23] MEDS: CARVEDILOL 3.125 MG TABLET. PO SCH ×2 (07:51→17:04)
[2018-07-23] MEDS: BENZONATATE 100 MG CAPSULE. PO PRN (07:51)
[2018-07-23] MEDS: SENNOSIDES/DOCUSATE 8.6/50MG TABLET. PO SCH ×2 (07:51→21:10)
[2018-07-23] MEDS: LISINOPRIL 20 MG TABLET PO SCH (07:51)
[2018-07-23] MEDS: FUROSEMIDE 40 MG/4 ML VIAL. IV SCH ×2 (07:52→14:33)
[2018-07-23] MEDS: HEPARIN for SUB-Q USE 5,000 UNIT/ML VIAL. SQ SCH ×2 (08:01→21:14)
[2018-07-23] MEDS: INSULIN LISPRO 300 UNITS/3 ML INSULN.PEN. SQ SCH ×3 (08:01→17:09)
[2018-07-23] MEDS: NITROGLYCERIN 0.2MG/HR PATCH. TD SCH (10:30)
--- NOTE | 2018-07-23 10:58 | PDOC ---
PULMONARY PROGRESS NOTES Subjective does not feel well Vitals Vital Signs Date Time Temp Pulse Resp B/P (MAP) Pulse Ox O2 Delivery O2 Flow Rate FiO2 07/23/18 07:51 89 136/77 07/23/18 07:00 97.7 18 90 Room Air 97.7 General: Alert, No acute distress Lungs: Other (decrease bases) Cardiovascular: S1 Abdomen: Soft Neuro Exam: Alert Extremities: Other (1+edema) Labs Laboratory Tests Test 07/22/18 08:40 07/22/18 08:50 07/22/18 09:23 07/22/18 17:06 Influenza Type A Antigen Negative (NEGATIVE) Influenza Type B Antigen Negative (NEGATIVE) Urine Collection Type Unknown Urine Color Yellow Urine Clarity Clear Urine pH 5.5 Urine Specific [place] 1.020 Urine Protein >=300 mg/dL (NEG-TRACE) Urine Glucose (UA) 100 mg/dL (NEG) Urine Ketones (Stick) Negative mg/dL (NEG) Urine Blood Moderate (NEG) Urine Nitrite Negative (NEG) Urine Bilirubin Negative (NEG) Urine Urobilinogen Dipstick 0.2 mg/dL (0.2 mg/dL) Urine Leukocyte Esterase Negative (NEG) Urine RBC 1-2 /HPF (0-2) Urine WBC 1-4 /HPF (0-4) Urine Squamous Epithelial Cells Mod /LPF Urine Amorphous Sediment Present /HPF Urine Bacteria Few /HPF (0-FEW) Urine Hyaline Casts Few /HPF Urine Sperm Present /HPF White Blood Count 5.0 x10^3/uL (4.0-11.0) Red Blood Count 3.50 x10^6/uL (4.30-5.70) Hemoglobin 9.8 g/dL (13.0-17.5) Hematocrit 30.3 % (39.0-53.0) Mean Corpuscular Volume 87 fL (79-100) Mean Corpuscular Hemoglobin 28 pg (25-35) Mean Corpuscular Hemoglobin Concent 32 g/dL (31-37) Red Cell Distribution Width 13.7 % (11.5-14.5) Platelet Count 532 x10^3/uL (140-400) Neutrophils (%) (Auto) 52 % (31-73) Lymphocytes (%) (Auto) 33 % (24-48) Monocytes (%) (Auto) 11 % (0-9) Eosinophils (%) (Auto) 2 % (0-3) Basophils (%) (Auto) 1 % (0-3) Neutrophils # (Auto) 2.6 x10^3uL (1.8-7.7) Lymphocytes # (Auto) 1.6 x10^3/uL (1.0-4.8) Monocytes # (Auto) 0.6 x10^3/uL (0.0-1.1) Eosinophils # (Auto) 0.1 x10^3/uL (0.0-0.7) Basophils # (Auto) 0.1 x10^3/uL (0.0-0.2) Sodium Level 140 mmol/L (136-145) Potassium Level 5.2 mmol/L (3.5-5.1) Chloride Level 104 mmol/L (98-107) Carbon Dioxide Level 22 mmol/L (21-32) Anion Gap 14 (6-14) Blood Urea Nitrogen 61 mg/dL (8-26) Creatinine 4.5 mg/dL (0.7-1.3) Estimated GFR (Cockcroft-Gault) 15.9 BUN/Creatinine Ratio 14 (6-20) Glucose Level 245 mg/dL (70-99) Lactic Acid Level 2.0 mmol/L (0.4-2.0) Calcium Level 9.4 mg/dL (8.5-10.1) Total Bilirubin 0.3 mg/dL (0.2-1.0) Aspartate Amino Transf (AST/SGOT) 51 U/L (15-37) Alanine Aminotransferase (ALT/SGPT) 105 U/L (16-63) Alkaline Phosphatase 206 U/L (46-116) Troponin I Quantitative 1.190 ng/mL (0.000-0.055) US-Ncv-C-Type Natriuretic Peptide > 59880 pg/mL (0-124) Total Protein 7.1 g/dL (6.4-8.2) Albumin 2.6 g/dL (3.4-5.0) Albumin/Globulin Ratio 0.6 (1.0-1.7) Procalcitonin 0.18 ng/mL (0.00-0.10) Glucose (Fingerstick) 219 mg/dL (70-99) Test 07/22/18 17:50 07/22/18 21:21 07/23/18 03:55 2/9/19 07:13 Prothrombin Time 14.0 SEC (11.7-14.0) Prothromb Time International Ratio 1.1 (0.8-1.1) Troponin I Quantitative 1.060 ng/mL (0.000-0.055) 0.924 ng/mL (0.000-0.055) Glucose (Fingerstick) 236 mg/dL (70-99) 172 mg/dL (70-99) White Blood Count 4.1 x10^3/uL (4.0-11.0) Red Blood Count 3.30 x10^6/uL (4.30-5.70) Hemoglobin 9.3 g/dL (13.0-17.5) Hematocrit 28.5 % (39.0-53.0) Mean Corpuscular Volume 86 fL (79-100) Mean Corpuscular Hemoglobin 28 pg (25-35) Mean Corpuscular Hemoglobin Concent 33 g/dL (31-37) Red Cell Distribution Width 13.6 % (11.5-14.5) Platelet Count 453 x10^3/uL (140-400) Neutrophils (%) (Auto) 54 % (31-73) Lymphocytes (%) (Auto) 32 % (24-48) Monocytes (%) (Auto) 10 % (0-9) Eosinophils (%) (Auto) 3 % (0-3) Basophils (%) (Auto) 2 % (0-3) Neutrophils # (Auto) 2.2 x10^3uL (1.8-7.7) Lymphocytes # (Auto) 1.3 x10^3/uL (1.0-4.8) Monocytes # (Auto) 0.4 x10^3/uL (0.0-1.1) Eosinophils # (Auto) 0.1 x10^3/uL (0.0-0.7) Basophils # (Auto) 0.1 x10^3/uL (0.0-0.2) Sodium Level 137 mmol/L (136-145) Potassium Level 4.6 mmol/L (3.5-5.1) Chloride Level 102 mmol/L (98-107) Carbon Dioxide Level 23 mmol/L (21-32) Anion Gap 12 (6-14) Blood Urea Nitrogen 60 mg/dL (8-26) Creatinine 4.6 mg/dL (0.7-1.3) Estimated GFR (Cockcroft-Gault) 15.5 Glucose Level 222 mg/dL (70-99) Calcium Level 9.2 mg/dL (8.5-10.1) Triglycerides Level 143 mg/dL (0-150) Cholesterol Level 183 mg/dL (0-200) LDL Cholesterol, Calculated 115 mg/dL (0-100) VLDL Cholesterol, Calculated 29 mg/dL (0-40) Non-HDL Cholesterol Calculated 144 mg/dL (0-129) HDL Cholesterol 39 mg/dL (40-60) Cholesterol/HDL Ratio 4.7 Laboratory Tests Test 07/22/18 17:06 07/22/18 17:50 07/22/18 21:21 07/23/18 03:55 Glucose (Fingerstick) 219 mg/dL (70-99) 236 mg/dL (70-99) Prothrombin Time 14.0 SEC (11.7-14.0) Prothromb Time International Ratio 1.1 (0.8-1.1) Troponin I Quantitative 1.060 ng/mL (0.000-0.055) 0.924 ng/mL (0.000-0.055) White Blood Count 4.1 x10^3/uL (4.0-11.0) Red Blood Count 3.30 x10^6/uL (4.30-5.70) Hemoglobin 9.3 g/dL (13.0-17.5) Hematocrit 28.5 % (39.0-53.0) Mean Corpuscular Volume 86 fL (79-100) Mean Corpuscular Hemoglobin 28 pg (25-35) Mean Corpuscular Hemoglobin Concent 33 g/dL (31-37) Red Cell Distribution Width 13.6 % (11.5-14.5) Platelet Count 453 x10^3/uL (140-400) Neutrophils (%) (Auto) 54 % (31-73) Lymphocytes (%) (Auto) 32 % (24-48) Monocytes (%) (Auto) 10 % (0-9) Eosinophils (%) (Auto) 3 % (0-3) Basophils (%) (Auto) 2 % (0-3) Neutrophils # (Auto) 2.2 x10^3uL (1.8-7.7) Lymphocytes # (Auto) 1.3 x10^3/uL (1.0-4.8) Monocytes # (Auto) 0.4 x10^3/uL (0.0-1.1) Eosinophils # (Auto) 0.1 x10^3/uL (0.0-0.7) Basophils # (Auto) 0.1 x10^3/uL (0.0-0.2) Sodium Level 137 mmol/L (136-145) Potassium Level 4.6 mmol/L (3.5-5.1) Chloride Level 102 mmol/L (98-107) Carbon Dioxide Level 23 mmol/L (21-32) Anion Gap 12 (6-14) Blood Urea Nitrogen 60 mg/dL (8-26) Creatinine 4.6 mg/dL (0.7-1.3) Estimated GFR (Cockcroft-Gault) 15.5 Glucose Level 222 mg/dL (70-99) Calcium Level 9.2 mg/dL (8.5-10.1) Triglycerides Level 143 mg/dL (0-150) Cholesterol Level 183 mg/dL (0-200) LDL Cholesterol, Calculated 115 mg/dL (0-100) VLDL Cholesterol, Calculated 29 mg/dL (0-40) Non-HDL Cholesterol Calculated 144 mg/dL (0-129) HDL Cholesterol 39 mg/dL (40-60) Cholesterol/HDL Ratio 4.7 Test 07/23/18 07:13 Glucose (Fingerstick) 172 mg/dL (70-99) Medications Active Scripts Medications Dose Route/Sig Max Daily Dose Days Date Category Glipizide 5 Mg Tablet 1 Tab PO BID 07/22/18 Reported Lisinopril 2.5 Mg Tablet Unknown Dose PO DAILY 07/22/[address] CHEST Impression: Moderate to large bilateral pleural effusions with scattered bibasilar atelectasis and right lower lobe atelectasis. Impression . 1. Dyspnea secondary to bilateral interstitial edema, likely acute systolic heart failure. Clinically, less likely pneumonia, 2. Renal failure ?acute on chronic. 3. No significant history of tobacco use. 4. Abnormal chest x-ray with bilateral interstitial infiltrates and bibasilar airspace opacities. Likely congestive heart failure, CT chest c/w moderate to large effusions 5. Moderate protein-calorie malnutrition. 6. Abnormal liver function test could be related to hypoperfusion. 7. CMP (EF35%) Plan . 1. Oxygen p.r.n. 2. echocardiogram REVIEWED/ EF 35% 3. CT chest REVIEWED/ Moderate to large effusions. would benefit from right thoracentesis first. will schedule for Wednesday 4. Procalcitonin level only 0.1 5. Renal consult and recommendation. 6. Follow liver function tests. 7. Difficult to diurese due to renal failure, may need dialysis. follow Nephrology recommendation. 8. I discussed with RN 9. Cardiology rec DANISHA FAM MD Jul 23, 2018 10:58
[2018-07-23 11:00] VITALS: BP 137/85
--- NOTE | 2018-07-23 14:23 | PDOC ---
PROGRESS NOTES Subjective Subjective Patient seen and examined The patient reports feeling better today. Objective Objective Vital Signs Date Time Temp Pulse Resp B/P (MAP) Pulse Ox O2 Delivery O2 Flow Rate FiO2 07/23/18 11:00 97.8 88 18 137/85 (102) 95 Room Air 97.8 Intake and Output 07/23/18 07:01 Intake Total 820 ml Output Total 751 ml Balance 69 ml Intake Oral 820 ml Output Urine Total 750 ml Stool Total 1 ml # Voids 1 Physical Exam Abdomen: Normal bowel sounds Heart: Regular rate General: mild distress Lungs: Other (mildly decreased breath sounds) Assessment Assessment Problems Medical Problems: (1) CHF (congestive heart failure) Status: Acute (2) Elevated troponin Status: Acute (3) Hyperkalemia Status: Acute (4) Renal failure Status: Acute 1. Acute respiratory failure secondary to systolic heart failure. Improved with treatment of the patient's underlying condition. 2. Acute on chronic systolic heart failure. Echocardiogram shows decreased ejection fraction at 30-35%. At this time will continue present treatment. 3. NSTEMI; initial trop 1.1. Probable demand ischemia in the setting of renal failure. Continuing medical treatment. No use of contrast at this time due to the patient's renal dysfunction. 4. MAE on ? CKD; creatinine remains elevated at 4.6. Being followed by renal. 5. Hyperkalemia. Treated. Potassium level this morning of 4.6. 6. Hypertension; controlled 7. Diabetes, II 8. Elevated LFTs Comment Review of Relevant I have reviewed the following items chayo (where applicable) has been applied. Labs Laboratory Tests Test 07/22/18 08:40 07/22/18 08:50 07/22/18 09:23 07/22/18 17:06 Influenza Type A Antigen Negative (NEGATIVE) Influenza Type B Antigen Negative (NEGATIVE) Urine Collection Type Unknown Urine Color Yellow Urine Clarity Clear Urine pH 5.5 Urine Specific Frederic 1.020 Urine Protein >=300 mg/dL (NEG-TRACE) Urine Glucose (UA) 100 mg/dL (NEG) Urine Ketones (Stick) Negative mg/dL (NEG) Urine Blood Moderate (NEG) Urine Nitrite Negative (NEG) Urine Bilirubin Negative (NEG) Urine Urobilinogen Dipstick 0.2 mg/dL (0.2 mg/dL) Urine Leukocyte Esterase Negative (NEG) Urine RBC 1-2 /HPF (0-2) Urine WBC 1-4 /HPF (0-4) Urine Squamous Epithelial Cells Mod /LPF Urine Amorphous Sediment Present /HPF Urine Bacteria Few /HPF (0-FEW) Urine Hyaline Casts Few /HPF Urine Sperm Present /HPF White Blood Count 5.0 x10^3/uL (4.0-11.0) Red Blood Count 3.50 x10^6/uL (4.30-5.70) Hemoglobin 9.8 g/dL (13.0-17.5) Hematocrit 30.3 % (39.0-53.0) Mean Corpuscular Volume 87 fL (79-100) Mean Corpuscular Hemoglobin 28 pg (25-35) Mean Corpuscular Hemoglobin Concent 32 g/dL (31-37) Red Cell Distribution Width 13.7 % (11.5-14.5) Platelet Count 532 x10^3/uL (140-400) Neutrophils (%) (Auto) 52 % (31-73) Lymphocytes (%) (Auto) 33 % (24-48) Monocytes (%) (Auto) 11 % (0-9) Eosinophils (%) (Auto) 2 % (0-3) Basophils (%) (Auto) 1 % (0-3) Neutrophils # (Auto) 2.6 x10^3uL (1.8-7.7) Lymphocytes # (Auto) 1.6 x10^3/uL (1.0-4.8) Monocytes # (Auto) 0.6 x10^3/uL (0.0-1.1) Eosinophils # (Auto) 0.1 x10^3/uL (0.0-0.7) Basophils # (Auto) 0.1 x10^3/uL (0.0-0.2) Sodium Level 140 mmol/L (136-145) Potassium Level 5.2 mmol/L (3.5-5.1) Chloride Level 104 mmol/L (98-107) Carbon Dioxide Level 22 mmol/L (21-32) Anion Gap 14 (6-14) Blood Urea Nitrogen 61 mg/dL (8-26) Creatinine 4.5 mg/dL (0.7-1.3) Estimated GFR (Cockcroft-Gault) 15.9 BUN/Creatinine Ratio 14 (6-20) Glucose Level 245 mg/dL (70-99) Lactic Acid Level 2.0 mmol/L (0.4-2.0) Calcium Level 9.4 mg/dL (8.5-10.1) Total Bilirubin 0.3 mg/dL (0.2-1.0) Aspartate Amino Transf (AST/SGOT) 51 U/L (15-37) Alanine Aminotransferase (ALT/SGPT) 105 U/L (16-63) Alkaline Phosphatase 206 U/L (46-116) Troponin I Quantitative 1.190 ng/mL (0.000-0.055) HO-Nlh-P-Type Natriuretic Peptide > 06616 pg/mL (0-124) Total Protein 7.1 g/dL (6.4-8.2) Albumin 2.6 g/dL (3.4-5.0) Albumin/Globulin Ratio 0.6 (1.0-1.7) Procalcitonin 0.18 ng/mL (0.00-0.10) Glucose (Fingerstick) 219 mg/dL (70-99) Test 07/22/18 17:50 07/22/18 21:21 07/23/18 03:55 07/23/18 07:13 Prothrombin Time 14.0 SEC (11.7-14.0) Prothromb Time International Ratio 1.1 (0.8-1.1) Troponin I Quantitative 1.060 ng/mL (0.000-0.055) 0.924 ng/mL (0.000-0.055) Glucose (Fingerstick) 236 mg/dL (70-99) 172 mg/dL (70-99) White Blood Count 4.1 x10^3/uL (4.0-11.0) Red Blood Count 3.30 x10^6/uL (4.30-5.70) Hemoglobin 9.3 g/dL (13.0-17.5) Hematocrit 28.5 % (39.0-53.0) Mean Corpuscular Volume 86 fL (79-100) Mean Corpuscular Hemoglobin 28 pg (25-35) Mean Corpuscular Hemoglobin Concent 33 g/dL (31-37) Red Cell Distribution Width 13.6 % (11.5-14.5) Platelet Count 453 x10^3/uL (140-400) Neutrophils (%) (Auto) 54 % (31-73) Lymphocytes (%) (Auto) 32 % (24-48) Monocytes (%) (Auto) 10 % (0-9) Eosinophils (%) (Auto) 3 % (0-3) Basophils (%) (Auto) 2 % (0-3) Neutrophils # (Auto) 2.2 x10^3uL (1.8-7.7) Lymphocytes # (Auto) 1.3 x10^3/uL (1.0-4.8) Monocytes # (Auto) 0.4 x10^3/uL (0.0-1.1) Eosinophils # (Auto) 0.1 x10^3/uL (0.0-0.7) Basophils # (Auto) 0.1 x10^3/uL (0.0-0.2) Sodium Level 137 mmol/L (136-145) Potassium Level 4.6 mmol/L (3.5-5.1) Chloride Level 102 mmol/L (98-107) Carbon Dioxide Level 23 mmol/L (21-32) Anion Gap 12 (6-14) Blood Urea Nitrogen 60 mg/dL (8-26) Creatinine 4.6 mg/dL (0.7-1.3) Estimated GFR (Cockcroft-Gault) 15.5 Glucose Level 222 mg/dL (70-99) Calcium Level 9.2 mg/dL (8.5-10.1) Triglycerides Level 143 mg/dL (0-150) Cholesterol Level 183 mg/dL (0-200) LDL Cholesterol, Calculated 115 mg/dL (0-100) VLDL Cholesterol, Calculated 29 mg/dL (0-40) Non-HDL Cholesterol Calculated 144 mg/dL (0-129) HDL Cholesterol 39 mg/dL (40-60) Cholesterol/HDL Ratio 4.7 Test 07/23/18 11:35 Glucose (Fingerstick) 121 mg/dL (70-99) Laboratory Tests Test 07/22/18 17:06 07/22/18 17:50 07/22/18 21:21 07/23/18 03:55 Glucose (Fingerstick) 219 mg/dL (70-99) 236 mg/dL (70-99) Prothrombin Time 14.0 SEC (11.7-14.0) Prothromb Time International Ratio 1.1 (0.8-1.1) Troponin I Quantitative 1.060 ng/mL (0.000-0.055) 0.924 ng/mL (0.000-0.055) White Blood Count 4.1 x10^3/uL (4.0-11.0) Red Blood Count 3.30 x10^6/uL (4.30-5.70) Hemoglobin 9.3 g/dL (13.0-17.5) Hematocrit 28.5 % (39.0-53.0) Mean Corpuscular Volume 86 fL (79-100) Mean Corpuscular Hemoglobin 28 pg (25-35) Mean Corpuscular Hemoglobin Concent 33 g/dL (31-37) Red Cell Distribution Width 13.6 % (11.5-14.5) Platelet Count 453 x10^3/uL (140-400) Neutrophils (%) (Auto) 54 % (31-73) Lymphocytes (%) (Auto) 32 % (24-48) Monocytes (%) (Auto) 10 % (0-9) Eosinophils (%) (Auto) 3 % (0-3) Basophils (%) (Auto) 2 % (0-3) Neutrophils # (Auto) 2.2 x10^3uL (1.8-7.7) Lymphocytes # (Auto) 1.3 x10^3/uL (1.0-4.8) Monocytes # (Auto) 0.4 x10^3/uL (0.0-1.1) Eosinophils # (Auto) 0.1 x10^3/uL (0.0-0.7) Basophils # (Auto) 0.1 x10^3/uL (0.0-0.2) Sodium Level 137 mmol/L (136-145) Potassium Level 4.6 mmol/L (3.5-5.1) Chloride Level 102 mmol/L (98-107) Carbon Dioxide Level 23 mmol/L (21-32) Anion Gap 12 (6-14) Blood Urea Nitrogen 60 mg/dL (8-26) Creatinine 4.6 mg/dL (0.7-1.3) Estimated GFR (Cockcroft-Gault) 15.5 Glucose Level 222 mg/dL (70-99) Calcium Level 9.2 mg/dL (8.5-10.1) Triglycerides Level 143 mg/dL (0-150) Cholesterol Level 183 mg/dL (0-200) LDL Cholesterol, Calculated 115 mg/dL (0-100) VLDL Cholesterol, Calculated 29 mg/dL (0-40) Non-HDL Cholesterol Calculated 144 mg/dL (0-129) HDL Cholesterol 39 mg/dL (40-60) Cholesterol/HDL Ratio 4.7 Test 07/23/18 07:13 07/23/18 11:35 Glucose (Fingerstick) 172 mg/dL (70-99) 121 mg/dL (70-99) Microbiology 07/22/18 Blood Culture - Preliminary, Resulted NO GROWTH AFTER 1 DAY Medications Current Medications Albuterol Sulfate (Ventolin Neb Soln) 2.5 mg 1X ONCE NEB Last administered on 07/22/18at 09:05; Start 07/22/18 at 08:30; Stop 07/22/18 at 09:07; Status DC Sodium Chloride 1,000 ml @ 1,000 mls/hr 1X ONCE IV Last administered on at 10:20; Start 07/22/18 at 10:15; Stop 07/22/18 at 11:14; Status DC Sodium Polystyrene Sulfonate (Kayexalate) 15 gm 1X ONCE PO Last administered on 07/22/18at 10:20; Start 07/22/18 at 10:15; Stop 07/22/18 at 10:16; Status DC Lisinopril (Prinivil) 20 mg DAILY PO Last administered on 07/23/18at 07:51; Start 07/22/18 at 14:00 Nitroglycerin (Nitro-Dur) 1 patch DAILY TD Last administered on 07/23/18at 10:30 ; Start 07/22/18 at 14:00 Furosemide (Lasix) 40 mg [id number] IV Last administered on 07/23/18at 07:52; Start at 14:00 Spironolactone (Aldactone) 25 mg DAILY PO Last administered on 07/23/18 07:51; Start 07/22/18 at 14:00 Heparin Sodium (Porcine) (Heparin Sodium) 5,000 unit Q12HR SQ Last administered on 07/23/18at 08:01; Start 07/22/18 at 14:00 Sodium Chloride (Normal Saline Flush) 3 ml QSHIFT PRN IV AFTER MEDS AND BLOOD DRAWS; Start 07/22/18 at 13:00 Ondansetron HCl (Zofran) 4 mg PRN Q6HRS PRN IV NAUSEA/VOMITING; Start 07/22/18 at 13:00 Zolpidem Tartrate (Ambien) 5 mg PRN QHS PRN PO INSOMNIA, MAY REPEAT IN 1HR; Start 07/22/18 at 13:00 Info (Non-Icu Electrolyte Protocol) 1 ea PRN DAILY PRN MC SEE COMMENTS; Start 07/22/18 at 13:00 Acetaminophen/ Hydrocodone Bitart (Lortab 5/325) 1 tab PRN Q4HRS PRN PO MILD PAIN; Start 07/22/18 at 13:00 Acetaminophen (Tylenol) 650 mg PRN Q6HRS PRN PO Headaches, Temp > 101.5F Last administered on 07/23/18at 10:30; Start 07/22/18 at 13:00 Senna/Docusate Sodium (Senna Plus) 1 tab BID PO Last administered on 07/23/18 07:51; Start 07/22/18 at 21:00 Lactulose (Lactulose) 20 gm PRN Q12HR PRN PO CONSTIPATION; Start 07/22/18 at 13: 00 Insulin Human Lispro (HumaLOG) 0-5 UNITS TIDWMEALS SQ Last administered on 08:01; Start 07/22/18 at 17:00 Dextrose (Dextrose 50%-Water Syringe) 12.5 gm PRN Q15MIN PRN IV SEE COMMENTS; Start 07/22/18 at 16:45 Aspirin (Huseyin Aspirin) 325 mg 1X ONCE PO Last administered on 07/22/18 17:18 ; Start 07/22/18 at 17:15; Stop 07/22/18 at 17:16; Status DC Aspirin (Ecotrin) 81 mg DAILYWBKFT PO Last administered on 07/23/18 07:51; Start 07/23/18 at 08:00 Carvedilol (Coreg) 3.125 mg BIDWMEALS PO Last administered on 07/23/18 07:51; Start 07/22/18 at 17:30 Benzonatate (Tessalon Perle) 100 mg PRN Q6HRS PRN PO COUGH, 2ND CHOICE Last administered on 2/9/19at 07:51; Start 07/22/18 at 21:00 Guaifenesin/ Codeine Phosphate (Robitussin Ac) 5 ml PRN Q6HRS PRN PO COUGH, 1ST CHOICE Last administered on 07/23/18at 11:33; Start 07/22/18 at 23:00 Active Scripts Active Reported Glipizide 5 Mg Tablet 1 Tab PO BID Lisinopril 2.5 Mg Tablet Unknown Dose PO DAILY Vitals/I & O Vital Sign - Last 24 Hours 07/22/18 07/22/18 07/22/18 07/22/18 15:02 15:25 17:20 19:30 Temp 97.8 98.4 97.8 98.4 Pulse 101 107 107 100 Resp 20 18 B/P (MAP) 156/88 127/74 (91) 133/71 122/78 (93) Pulse Ox 92 89 O2 Delivery Room Air Room Air 07/22/18 07/23/18 07/23/18 07/23/18 23:00 03:00 07:00 07:51 Temp 97.5 97.7 97.7 97.5 97.7 97.7 Pulse 95 86 89 89 Resp 20 18 18 B/P (MAP) 129/72 (91) 120/72 (88) 136/77 (96) 136/77 Pulse Ox 90 91 90 O2 Delivery Room Air Room Air Room Air 07/23/18 07/23/18 07:51 11:00 Temp 97.8 97.8 Pulse 89 88 Resp 18 B/P (MAP) 136/77 137/85 (102) Pulse Ox 95 O2 Delivery Room Air Intake and Output 07/22/18 07/22/18 07/23/18 15:01 23:01 07:01 Intake Total 300 ml 520 ml Output Total 200 ml 350 ml 201 ml Balance -200 ml -50 ml 319 ml AMENA HARTLEY MD Jul 23, 2018 14:23
[2018-07-23 15:00] VITALS: BP 145/91
--- NOTE | 2018-07-23 15:49 | PDOC ---
PROGRESS NOTES Chief Complaint Chief Complaint Pulmonary edema Dyspnea secondary to the above Elevated troponin asymptomatic Chronic kidney disease stage IIIb most likely Congestive heart failure which may be a combined dysfunction. No recorded ejection fraction in our institution Hypertension fairly controlled Diabetes mellitus type 2 Normocytic anemia of chronic inflammation History of Present Illness History of Present Illness 68-year-old gentleman who has a past medical history of hypertension diabetes. The patient [facility]. Comes today with a history of more or less 2 days off increasingly dyspnea that started on exertion and has progressively gotten worse. The patient refers some bouts of paroxysmal nocturnal dyspnea in the past and today progressed to orthopnea reason why he decided to come to the emergency department. Of note is that the patient also refers some congestion and sinus pressure. Overnight still c/o cough. Seen by cardiology and nephrology. He has not been fully oriented today. Able to walk.the unit Plan Observe a 2 g sodium diet Fluid restriction Follow troponin trend We'll consult cardiology Request records from the [facility] We'll give nitroglycerin when necessary for discomfort Diuresis with Lasix, back off to once per nephro recs consult pulmonology for his cough DVT prohpylaxis: scd and teds Vitals Vitals Vital Signs Date Time Temp Pulse Resp B/P (MAP) Pulse Ox O2 Delivery O2 Flow Rate FiO2 07/23/18 15:00 98.0 90 18 145/91 (109) 93 Room Air 98.0 Physical Exam General: mild distress Heart: Regular rate Lungs: Other (decrease bases) Abdomen: Normal bowel sounds Extremities: Other (1+ bilateral LE edema ) Skin: No significant lesion Labs LABS Laboratory Tests Test 07/22/18 17:06 07/22/18 17:50 07/22/18 21:21 07/23/18 03:55 Glucose (Fingerstick) 219 mg/dL (70-99) 236 mg/dL (70-99) Prothrombin Time 14.0 SEC (11.7-14.0) Prothromb Time International Ratio 1.1 (0.8-1.1) Troponin I Quantitative 1.060 ng/mL (0.000-0.055) 0.924 ng/mL (0.000-0.055) White Blood Count 4.1 x10^3/uL (4.0-11.0) Red Blood Count 3.30 x10^6/uL (4.30-5.70) Hemoglobin 9.3 g/dL (13.0-17.5) Hematocrit 28.5 % (39.0-53.0) Mean Corpuscular Volume 86 fL (79-100) Mean Corpuscular Hemoglobin 28 pg (25-35) Mean Corpuscular Hemoglobin Concent 33 g/dL (31-37) Red Cell Distribution Width 13.6 % (11.5-14.5) Platelet Count 453 x10^3/uL (140-400) Neutrophils (%) (Auto) 54 % (31-73) Lymphocytes (%) (Auto) 32 % (24-48) Monocytes (%) (Auto) 10 % (0-9) Eosinophils (%) (Auto) 3 % (0-3) Basophils (%) (Auto) 2 % (0-3) Neutrophils # (Auto) 2.2 x10^3uL (1.8-7.7) Lymphocytes # (Auto) 1.3 x10^3/uL (1.0-4.8) Monocytes # (Auto) 0.4 x10^3/uL (0.0-1.1) Eosinophils # (Auto) 0.1 x10^3/uL (0.0-0.7) Basophils # (Auto) 0.1 x10^3/uL (0.0-0.2) Sodium Level 137 mmol/L (136-145) Potassium Level 4.6 mmol/L (3.5-5.1) Chloride Level 102 mmol/L (98-107) Carbon Dioxide Level 23 mmol/L (21-32) Anion Gap 12 (6-14) Blood Urea Nitrogen 60 mg/dL (8-26) Creatinine 4.6 mg/dL (0.7-1.3) Estimated GFR (Cockcroft-Gault) 15.5 Glucose Level 222 mg/dL (70-99) Calcium Level 9.2 mg/dL (8.5-10.1) Triglycerides Level 143 mg/dL (0-150) Cholesterol Level 183 mg/dL (0-200) LDL Cholesterol, Calculated 115 mg/dL (0-100) VLDL Cholesterol, Calculated 29 mg/dL (0-40) Non-HDL Cholesterol Calculated 144 mg/dL (0-129) HDL Cholesterol 39 mg/dL (40-60) Cholesterol/HDL Ratio 4.7 Test 2/9/19 07:13 07/23/18 11:35 Glucose (Fingerstick) 172 mg/dL (70-99) 121 mg/dL (70-99) Assessment and Plan Assessmemt and Plan Problems Medical Problems: (1) CHF (congestive heart failure) Status: Acute (2) Elevated troponin Status: Acute (3) Hyperkalemia Status: Acute (4) Renal failure Status: Acute Comment Review of Relevant I have reviewed the following items chayo (where applicable) has been applied. Labs Laboratory Tests Test 07/22/18 08:40 07/22/18 08:50 07/22/18 09:23 07/22/18 17:06 Influenza Type A Antigen Negative (NEGATIVE) Influenza Type B Antigen Negative (NEGATIVE) Urine Collection Type Unknown Urine Color Yellow Urine Clarity Clear Urine pH 5.5 Urine Specific Soldier 1.020 Urine Protein >=300 mg/dL (NEG-TRACE) Urine Glucose (UA) 100 mg/dL (NEG) Urine Ketones (Stick) Negative mg/dL (NEG) Urine Blood Moderate (NEG) Urine Nitrite Negative (NEG) Urine Bilirubin Negative (NEG) Urine Urobilinogen Dipstick 0.2 mg/dL (0.2 mg/dL) Urine Leukocyte Esterase Negative (NEG) Urine RBC 1-2 /HPF (0-2) Urine WBC 1-4 /HPF (0-4) Urine Squamous Epithelial Cells Mod /LPF Urine Amorphous Sediment Present /HPF Urine Bacteria Few /HPF (0-FEW) Urine Hyaline Casts Few /HPF Urine Sperm Present /HPF White Blood Count 5.0 x10^3/uL (4.0-11.0) Red Blood Count 3.50 x10^6/uL (4.30-5.70) Hemoglobin 9.8 g/dL (13.0-17.5) Hematocrit 30.3 % (39.0-53.0) Mean Corpuscular Volume 87 fL (79-100) Mean Corpuscular Hemoglobin 28 pg (25-35) Mean Corpuscular Hemoglobin Concent 32 g/dL (31-37) Red Cell Distribution Width 13.7 % (11.5-14.5) Platelet Count 532 x10^3/uL (140-400) Neutrophils (%) (Auto) 52 % (31-73) Lymphocytes (%) (Auto) 33 % (24-48) Monocytes (%) (Auto) 11 % (0-9) Eosinophils (%) (Auto) 2 % (0-3) Basophils (%) (Auto) 1 % (0-3) Neutrophils # (Auto) 2.6 x10^3uL (1.8-7.7) Lymphocytes # (Auto) 1.6 x10^3/uL (1.0-4.8) Monocytes # (Auto) 0.6 x10^3/uL (0.0-1.1) Eosinophils # (Auto) 0.1 x10^3/uL (0.0-0.7) Basophils # (Auto) 0.1 x10^3/uL (0.0-0.2) Sodium Level 140 mmol/L (136-145) Potassium Level 5.2 mmol/L (3.5-5.1) Chloride Level 104 mmol/L (98-107) Carbon Dioxide Level 22 mmol/L (21-32) Anion Gap 14 (6-14) Blood Urea Nitrogen 61 mg/dL (8-26) Creatinine 4.5 mg/dL (0.7-1.3) Estimated GFR (Cockcroft-Gault) 15.9 BUN/Creatinine Ratio 14 (6-20) Glucose Level 245 mg/dL (70-99) Lactic Acid Level 2.0 mmol/L (0.4-2.0) Calcium Level 9.4 mg/dL (8.5-10.1) Total Bilirubin 0.3 mg/dL (0.2-1.0) Aspartate Amino Transf (AST/SGOT) 51 U/L (15-37) Alanine Aminotransferase (ALT/SGPT) 105 U/L (16-63) Alkaline Phosphatase 206 U/L (46-116) Troponin I Quantitative 1.190 ng/mL (0.000-0.055) WU-Eoj-D-Type Natriuretic Peptide > 51479 pg/mL (0-124) Total Protein 7.1 g/dL (6.4-8.2) Albumin 2.6 g/dL (3.4-5.0) Albumin/Globulin Ratio 0.6 (1.0-1.7) Procalcitonin 0.18 ng/mL (0.00-0.10) Glucose (Fingerstick) 219 mg/dL (70-99) Test 2/8/19 17:50 07/22/18 21:21 07/23/18 03:55 07/23/18 07:13 Prothrombin Time 14.0 SEC (11.7-14.0) Prothromb Time International Ratio 1.1 (0.8-1.1) Troponin I Quantitative 1.060 ng/mL (0.000-0.055) 0.924 ng/mL (0.000-0.055) Glucose (Fingerstick) 236 mg/dL (70-99) 172 mg/dL (70-99) White Blood Count 4.1 x10^3/uL (4.0-11.0) Red Blood Count 3.30 x10^6/uL (4.30-5.70) Hemoglobin 9.3 g/dL (13.0-17.5) Hematocrit 28.5 % (39.0-53.0) Mean Corpuscular Volume 86 fL (79-100) Mean Corpuscular Hemoglobin 28 pg (25-35) Mean Corpuscular Hemoglobin Concent 33 g/dL (31-37) Red Cell Distribution Width 13.6 % (11.5-14.5) Platelet Count 453 x10^3/uL (140-400) Neutrophils (%) (Auto) 54 % (31-73) Lymphocytes (%) (Auto) 32 % (24-48) Monocytes (%) (Auto) 10 % (0-9) Eosinophils (%) (Auto) 3 % (0-3) Basophils (%) (Auto) 2 % (0-3) Neutrophils # (Auto) 2.2 x10^3uL (1.8-7.7) Lymphocytes # (Auto) 1.3 x10^3/uL (1.0-4.8) Monocytes # (Auto) 0.4 x10^3/uL (0.0-1.1) Eosinophils # (Auto) 0.1 x10^3/uL (0.0-0.7) Basophils # (Auto) 0.1 x10^3/uL (0.0-0.2) Sodium Level 137 mmol/L (136-145) Potassium Level 4.6 mmol/L (3.5-5.1) Chloride Level 102 mmol/L (98-107) Carbon Dioxide Level 23 mmol/L (21-32) Anion Gap 12 (6-14) Blood Urea Nitrogen 60 mg/dL (8-26) Creatinine 4.6 mg/dL (0.7-1.3) Estimated GFR (Cockcroft-Gault) 15.5 Glucose Level 222 mg/dL (70-99) Calcium Level 9.2 mg/dL (8.5-10.1) Triglycerides Level 143 mg/dL (0-150) Cholesterol Level 183 mg/dL (0-200) LDL Cholesterol, Calculated 115 mg/dL (0-100) VLDL Cholesterol, Calculated 29 mg/dL (0-40) Non-HDL Cholesterol Calculated 144 mg/dL (0-129) HDL Cholesterol 39 mg/dL (40-60) Cholesterol/HDL Ratio 4.7 Test 07/23/18 11:35 Glucose (Fingerstick) 121 mg/dL (70-99) Laboratory Tests Test 07/22/18 17:06 07/22/18 17:50 07/22/18 21:21 07/23/18 03:55 Glucose (Fingerstick) 219 mg/dL (70-99) 236 mg/dL (70-99) Prothrombin Time 14.0 SEC (11.7-14.0) Prothromb Time International Ratio 1.1 (0.8-1.1) Troponin I Quantitative 1.060 ng/mL (0.000-0.055) 0.924 ng/mL (0.000-0.055) White Blood Count 4.1 x10^3/uL (4.0-11.0) Red Blood Count 3.30 x10^6/uL (4.30-5.70) Hemoglobin 9.3 g/dL (13.0-17.5) Hematocrit 28.5 % (39.0-53.0) Mean Corpuscular Volume 86 fL (79-100) Mean Corpuscular Hemoglobin 28 pg (25-35) Mean Corpuscular Hemoglobin Concent 33 g/dL (31-37) Red Cell Distribution Width 13.6 % (11.5-14.5) Platelet Count 453 x10^3/uL (140-400) Neutrophils (%) (Auto) 54 % (31-73) Lymphocytes (%) (Auto) 32 % (24-48) Monocytes (%) (Auto) 10 % (0-9) Eosinophils (%) (Auto) 3 % (0-3) Basophils (%) (Auto) 2 % (0-3) Neutrophils # (Auto) 2.2 x10^3uL (1.8-7.7) Lymphocytes # (Auto) 1.3 x10^3/uL (1.0-4.8) Monocytes # (Auto) 0.4 x10^3/uL (0.0-1.1) Eosinophils # (Auto) 0.1 x10^3/uL (0.0-0.7) Basophils # (Auto) 0.1 x10^3/uL (0.0-0.2) Sodium Level 137 mmol/L (136-145) Potassium Level 4.6 mmol/L (3.5-5.1) Chloride Level 102 mmol/L (98-107) Carbon Dioxide Level 23 mmol/L (21-32) Anion Gap 12 (6-14) Blood Urea Nitrogen 60 mg/dL (8-26) Creatinine 4.6 mg/dL (0.7-1.3) Estimated GFR (Cockcroft-Gault) 15.5 Glucose Level 222 mg/dL (70-99) Calcium Level 9.2 mg/dL (8.5-10.1) Triglycerides Level 143 mg/dL (0-150) Cholesterol Level 183 mg/dL (0-200) LDL Cholesterol, Calculated 115 mg/dL (0-100) VLDL Cholesterol, Calculated 29 mg/dL (0-40) Non-HDL Cholesterol Calculated 144 mg/dL (0-129) HDL Cholesterol 39 mg/dL (40-60) Cholesterol/HDL Ratio 4.7 Test 07/23/18 07:13 07/23/18 11:35 Glucose (Fingerstick) 172 mg/dL (70-99) 121 mg/dL (70-99) Microbiology 07/22/18 Blood Culture - Preliminary, Resulted NO GROWTH AFTER 1 DAY Medications Current Medications Albuterol Sulfate (Ventolin Neb Soln) 2.5 mg 1X ONCE NEB Last administered on 07/22/18at 09:05; Start 07/22/18 at 08:30; Stop 07/22/18 at 09:07; Status DC Sodium Chloride 1,000 ml @ 1,000 mls/hr 1X ONCE IV Last administered on 10:20; Start 07/22/18 at 10:15; Stop 07/22/18 at 11:14; Status DC Sodium Polystyrene Sulfonate (Kayexalate) 15 gm 1X ONCE PO Last administered on 07/22/18 10:20; Start 07/22/18 at 10:15; Stop 07/22/18 at 10:16; Status DC Lisinopril (Prinivil) 20 mg DAILY PO Last administered on 07/23/18 07:51; Start 07/22/18 at 14:00; Stop 07/23/18 at 15:26; Status DC Nitroglycerin (Nitro-Dur) 1 patch DAILY TD Last administered on 07/23/18 10:30 ; Start 07/22/18 at 14:00 Furosemide (Lasix) 40 mg [id number] IV Last administered on 07/23/18 14:33; Start at 14:00; Stop 07/23/18 at 15:21; Status DC Spironolactone (Aldactone) 25 mg DAILY PO Last administered on 07/23/18 07:51; Start 07/22/18 at 14:00; Stop 07/23/18 at 15:26; Status DC Heparin Sodium (Porcine) (Heparin Sodium) 5,000 unit Q12HR SQ Last administered on 07/23/18 08:01; Start 07/22/18 at 14:00 Sodium Chloride (Normal Saline Flush) 3 ml QSHIFT PRN IV AFTER MEDS AND BLOOD DRAWS; Start 07/22/18 at 13:00 Ondansetron HCl (Zofran) 4 mg PRN Q6HRS PRN IV NAUSEA/VOMITING; Start 07/22/18 at 13:00 Zolpidem Tartrate (Ambien) 5 mg PRN QHS PRN PO INSOMNIA, MAY REPEAT IN 1HR; Start 07/22/18 at 13:00 Info (Non-Icu Electrolyte Protocol) 1 ea PRN DAILY PRN MC SEE COMMENTS; Start 07/22/18 at 13:00 Acetaminophen/ Hydrocodone Bitart (Lortab 5/325) 1 tab PRN Q4HRS PRN PO MILD PAIN; Start 07/22/18 at 13:00 Acetaminophen (Tylenol) 650 mg PRN Q6HRS PRN PO Headaches, Temp > 101.5F Last administered on 07/23/18 10:30; Start 07/22/18 at 13:00 Senna/Docusate Sodium (Senna Plus) 1 tab BID PO Last administered on 07/23/18 07:51; Start 07/22/18 at 21:00 Lactulose (Lactulose) 20 gm PRN Q12HR PRN PO CONSTIPATION; Start 07/22/18 at 13: 00 Insulin Human Lispro (HumaLOG) 0-5 UNITS TIDWMEALS SQ Last administered on 08:01; Start 07/22/18 at 17:00 Dextrose (Dextrose 50%-Water Syringe) 12.5 gm PRN Q15MIN PRN IV SEE COMMENTS; Start 07/22/18 at 16:45 Aspirin (Huseyin Aspirin) 325 mg 1X ONCE PO Last administered on 07/22/18 17:18 ; Start 07/22/18 at 17:15; Stop 07/22/18 at 17:16; Status DC Aspirin (Ecotrin) 81 mg DAILYWBKFT PO Last administered on 07/23/18 07:51; Start 07/23/18 at 08:00 Carvedilol (Coreg) 3.125 mg BIDWMEALS PO Last administered on 07/23/18 07:51; Start 07/22/18 at 17:30 Benzonatate (Tessalon Perle) 100 mg PRN Q6HRS PRN PO COUGH, 2ND CHOICE Last administered on 07/23/18 07:51; Start 07/22/18 at 21:00 Guaifenesin/ Codeine Phosphate (Robitussin Ac) 5 ml PRN Q6HRS PRN PO COUGH, 1ST CHOICE Last administered on 07/23/18 11:33; Start 07/22/18 at 23:00 Furosemide (Lasix) 40 mg DAILY IV ; Start 07/24/18 at 09:00 Active Scripts Active Reported Glipizide 5 Mg Tablet 1 Tab PO BID Lisinopril 2.5 Mg Tablet Unknown Dose PO DAILY Vitals/I & O Vital Sign - Last 24 Hours 07/22/18 07/22/18 07/22/18 07/23/18 17:20 19:30 23:00 03:00 Temp 98.4 97.5 97.7 98.4 97.5 97.7 Pulse 107 100 95 86 Resp 18 20 18 B/P (MAP) 133/71 122/78 (93) 129/72 (91) 120/72 (88) Pulse Ox 89 90 91 O2 Delivery Room Air Room Air Room Air 07/23/18 07/23/18 07/23/18 07/23/18 07:00 07:51 07:51 11:00 Temp 97.7 97.8 97.7 97.8 Pulse 89 89 89 88 Resp 18 18 B/P (MAP) 136/77 (96) 136/77 136/77 137/85 (102) Pulse Ox 90 95 O2 Delivery Room Air Room Air 07/23/18 15:00 Temp 98.0 98.0 Pulse 90 Resp 18 B/P (MAP) 145/91 (109) Pulse Ox 93 O2 Delivery Room Air Intake and Output 07/22/18 07/22/18 07/23/18 15:01 23:01 07:01 Intake Total 300 ml 520 ml Output Total 200 ml 350 ml 201 ml Balance -200 ml -50 ml 319 ml MELISSA BHATIT MD Jul 23, 2018 15:49
[2018-07-23] MEDS: BENZOCAINE/MENTHOL LOZENGE. PO PRN ×2 (17:04→22:31)
[2018-07-23] MEDS: ONDANSETRON PF 4 MG/2 ML VIAL. IV PRN (17:04)
--- NOTE | 2018-07-23 17:19 | PDOC2 ---
CONSULT Date of Consult Date of Consult DATE: 07/23/18 TIME: 17:05 Reason for Consult Reason for Consult: Elevated Cr Source Source: Chart review, Patient History of Present Illness Reason for Visit: Patient is a 68-year-old AAM who has a past medical history of hypertension diabetes. He receives his health care at [facility] . Admitted with history of more or less 2 days off increasingly dyspnea that started on exertion and has progressively gotten worse. He states he has been having some congestion and sinus pressure. He took Mucinex at home The patient denies history of CAD, no history of congestive heart failure He lives at home by himself and refers being able to cook but has been eating TV dinners recently and a lot can soups. He states he was recently started on metformin at [place] . Denies any other new meds. He has been on Lisnopril for long time. Denies any NSAID use or OTC supplement Claims he has never been told that he has any kidney issues Reports Good UOP, denies any symptoms of UTI or retention Past Medical History Cardiovascular: HTN Pulmonary: Asthma, COPD Endocrine: Diabetes Current Problem List Problem List Problems Medical Problems: (1) CHF (congestive heart failure) Status: Acute (2) Elevated troponin Status: Acute (3) Hyperkalemia Status: Acute (4) Renal failure Status: Acute Current Medications Current Medications Current Medications Albuterol Sulfate (Ventolin Neb Soln) 2.5 mg 1X ONCE NEB Last administered on 07/22/18at 09:05; Start 07/22/18 at 08:30; Stop 07/22/18 at 09:07; Status DC Sodium Chloride 1,000 ml @ 1,000 mls/hr 1X ONCE IV Last administered on at 10:20; Start 07/22/18 at 10:15; Stop 07/22/18 at 11:14; Status DC Sodium Polystyrene Sulfonate (Kayexalate) 15 gm 1X ONCE PO Last administered on 07/22/18at 10:20; Start 07/22/18 at 10:15; Stop 07/22/18 at 10:16; Status DC Lisinopril (Prinivil) 20 mg DAILY PO Last administered on 07/23/18at 07:51; Start 07/22/18 at 14:00; Stop 07/23/18 at 15:26; Status DC Nitroglycerin (Nitro-Dur) 1 patch DAILY TD Last administered on 07/23/18 10:30 ; Start 07/22/18 at 14:00 Furosemide (Lasix) 40 mg BID92 IV Last administered on 07/23/18 14:33; Start at 14:00; Stop 07/23/18 at 15:21; Status DC Spironolactone (Aldactone) 25 mg DAILY PO Last administered on 07/23/18 07:51; Start 07/22/18 at 14:00; Stop 07/23/18 at 15:26; Status DC Heparin Sodium (Porcine) (Heparin Sodium) 5,000 unit Q12HR SQ Last administered on 07/23/18 08:01; Start 07/22/18 at 14:00 Sodium Chloride (Normal Saline Flush) 3 ml QSHIFT PRN IV AFTER MEDS AND BLOOD DRAWS; Start 07/22/18 at 13:00 Ondansetron HCl (Zofran) 4 mg PRN Q6HRS PRN IV NAUSEA/VOMITING; Start 07/22/18 at 13:00; Stop 07/23/18 at 16:58; Status DC Zolpidem Tartrate (Ambien) 5 mg PRN QHS PRN PO INSOMNIA, MAY REPEAT IN 1HR; Start 07/22/18 at 13:00 Info (Non-Icu Electrolyte Protocol) 1 ea PRN DAILY PRN MC SEE COMMENTS; Start 07/22/18 at 13:00 Acetaminophen/ Hydrocodone Bitart (Lortab 5/325) 1 tab PRN Q4HRS PRN PO MILD PAIN; Start 07/22/18 at 13:00 Acetaminophen (Tylenol) 650 mg PRN Q6HRS PRN PO Headaches, Temp > 101.5F Last administered on 07/23/18 10:30; Start 07/22/18 at 13:00 Senna/Docusate Sodium (Senna Plus) 1 tab BID PO Last administered on 07/23/18 07:51; Start 07/22/18 at 21:00 Lactulose (Lactulose) 20 gm PRN Q12HR PRN PO CONSTIPATION; Start 07/22/18 at 13: 00 Insulin Human Lispro (HumaLOG) 0-5 UNITS TIDWMEALS SQ Last administered on at 08:01; Start 07/22/18 at 17:00 Dextrose (Dextrose 50%-Water Syringe) 12.5 gm PRN Q15MIN PRN IV SEE COMMENTS; Start 07/22/18 at 16:45 Aspirin (Huseyin Aspirin) 325 mg 1X ONCE PO Last administered on 07/22/18at 17:18 ; Start 07/22/18 at 17:15; Stop 07/22/18 at 17:16; Status DC Aspirin (Ecotrin) 81 mg DAILYWBKFT PO Last administered on 07/23/18at 07:51; Start 07/23/18 at 08:00 Carvedilol (Coreg) 3.125 mg BIDWMEALS PO Last administered on 07/23/18at 07:51; Start 07/22/18 at 17:30 Benzonatate (Tessalon Perle) 100 mg PRN Q6HRS PRN PO COUGH, 2ND CHOICE Last administered on 07/23/18at 07:51; Start 07/22/18 at 21:00 Guaifenesin/ Codeine Phosphate (Robitussin Ac) 5 ml PRN Q6HRS PRN PO COUGH, 1ST CHOICE Last administered on 07/23/18at 16:29; Start 07/22/18 at 23:00 Furosemide (Lasix) 40 mg DAILY IV ; Start 07/24/18 at 09:00 Throat Lozenges (Cepacol Sore Throat Lozenge) 1 aissatou PRN Q2HRS PRN PO SORE THROAT; Start 07/23/18 at 17:00 Ondansetron HCl (Zofran) 4 mg PRN Q6HRS PRN IV NAUSEA/VOMITING; Start 07/23/18 at 17:00 Active Scripts Active Reported Glipizide 5 Mg Tablet 1 Tab PO BID Lisinopril 2.5 Mg Tablet Unknown Dose PO DAILY Allergies Allergies: Coded Allergies: Penicillins (Verified Allergy, Intermediate, 07/22/18) ROS Review of System As per HPI Physical Exam Physical Exam General: No acute distress HEENT: , Mucous membr. moist/pink Neck Supple Lungs: CTA, Non labored Heart: Regular rate, Abdomen: Soft, No tenderness Extremities: No bilateral LE edema ) Skin: No rash Neuro: Normal speech, Sensation intact No [place] Vital Signs Vital Signs Date Time Temp Pulse Resp B/P (MAP) Pulse Ox O2 Delivery O2 Flow Rate FiO2 07/23/18 15:00 98.0 90 18 145/91 (109) 93 Room Air 98.0 Assessment & Plan MAE- Baseline unknown, Suspect Cardiorenal U A unremarkable except proteinuria, Renal US unremarkable [facility]es [facility] Aldactone and Lisinopril Recommend decreasing IV lasix to QD (can give extra dose if change in Pulm status) E-Lytes and acid base stable , Currently no emergent indication for HD Pulmonary edema- On Lasix ?Chronic kidney disease stage III Congestive heart failure which may be a combined dysfunction. N Hypertension fairly controlled Diabetes mellitus type 2 Pleural effusion - Possibly Thoracentesis, As per pulm Labs Labs Laboratory Tests Test 07/22/18 08:40 07/22/18 08:50 07/22/18 09:23 07/22/18 17:06 Influenza Type A Antigen Negative (NEGATIVE) Influenza Type B Antigen Negative (NEGATIVE) Urine Collection Type Unknown Urine Color Yellow Urine Clarity Clear Urine pH 5.5 Urine Specific [place] 1.020 Urine Protein >=300 mg/dL (NEG-TRACE) Urine Glucose (UA) 100 mg/dL (NEG) Urine Ketones (Stick) Negative mg/dL (NEG) Urine Blood Moderate (NEG) Urine Nitrite Negative (NEG) Urine Bilirubin Negative (NEG) Urine Urobilinogen Dipstick 0.2 mg/dL (0.2 mg/dL) Urine Leukocyte Esterase Negative (NEG) Urine RBC 1-2 /HPF (0-2) Urine WBC 1-4 /HPF (0-4) Urine Squamous Epithelial Cells Mod /LPF Urine Amorphous Sediment Present /HPF Urine Bacteria Few /HPF (0-FEW) Urine Hyaline Casts Few /HPF Urine Sperm Present /HPF White Blood Count 5.0 x10^3/uL (4.0-11.0) Red Blood Count 3.50 x10^6/uL (4.30-5.70) Hemoglobin 9.8 g/dL (13.0-17.5) Hematocrit 30.3 % (39.0-53.0) Mean Corpuscular Volume 87 fL (79-100) Mean Corpuscular Hemoglobin 28 pg (25-35) Mean Corpuscular Hemoglobin Concent 32 g/dL (31-37) Red Cell Distribution Width 13.7 % (11.5-14.5) Platelet Count 532 x10^3/uL (140-400) Neutrophils (%) (Auto) 52 % (31-73) Lymphocytes (%) (Auto) 33 % (24-48) Monocytes (%) (Auto) 11 % (0-9) Eosinophils (%) (Auto) 2 % (0-3) Basophils (%) (Auto) 1 % (0-3) Neutrophils # (Auto) 2.6 x10^3uL (1.8-7.7) Lymphocytes # (Auto) 1.6 x10^3/uL (1.0-4.8) Monocytes # (Auto) 0.6 x10^3/uL (0.0-1.1) Eosinophils # (Auto) 0.1 x10^3/uL (0.0-0.7) Basophils # (Auto) 0.1 x10^3/uL (0.0-0.2) Sodium Level 140 mmol/L (136-145) Potassium Level 5.2 mmol/L (3.5-5.1) Chloride Level 104 mmol/L (98-107) Carbon Dioxide Level 22 mmol/L (21-32) Anion Gap 14 (6-14) Blood Urea Nitrogen 61 mg/dL (8-26) Creatinine 4.5 mg/dL (0.7-1.3) Estimated GFR (Cockcroft-Gault) 15.9 BUN/Creatinine Ratio 14 (6-20) Glucose Level 245 mg/dL (70-99) Lactic Acid Level 2.0 mmol/L (0.4-2.0) Calcium Level 9.4 mg/dL (8.5-10.1) Total Bilirubin 0.3 mg/dL (0.2-1.0) Aspartate Amino Transf (AST/SGOT) 51 U/L (15-37) Alanine Aminotransferase (ALT/SGPT) 105 U/L (16-63) Alkaline Phosphatase 206 U/L (46-116) Troponin I Quantitative 1.190 ng/mL (0.000-0.055) YY-Ioc-F-Type Natriuretic Peptide > 36518 pg/mL (0-124) Total Protein 7.1 g/dL (6.4-8.2) Albumin 2.6 g/dL (3.4-5.0) Albumin/Globulin Ratio 0.6 (1.0-1.7) Procalcitonin 0.18 ng/mL (0.00-0.10) Glucose (Fingerstick) 219 mg/dL (70-99) Test 07/22/18 17:50 07/22/18 21:21 07/23/18 03:55 07/23/18 07:13 Prothrombin Time 14.0 SEC (11.7-14.0) Prothromb Time International Ratio 1.1 (0.8-1.1) Troponin I Quantitative 1.060 ng/mL (0.000-0.055) 0.924 ng/mL (0.000-0.055) Glucose (Fingerstick) 236 mg/dL (70-99) 172 mg/dL (70-99) White Blood Count 4.1 x10^3/uL (4.0-11.0) Red Blood Count 3.30 x10^6/uL (4.30-5.70) Hemoglobin 9.3 g/dL (13.0-17.5) Hematocrit 28.5 % (39.0-53.0) Mean Corpuscular Volume 86 fL (79-100) Mean Corpuscular Hemoglobin 28 pg (25-35) Mean Corpuscular Hemoglobin Concent 33 g/dL (31-37) Red Cell Distribution Width 13.6 % (11.5-14.5) Platelet Count 453 x10^3/uL (140-400) Neutrophils (%) (Auto) 54 % (31-73) Lymphocytes (%) (Auto) 32 % (24-48) Monocytes (%) (Auto) 10 % (0-9) Eosinophils (%) (Auto) 3 % (0-3) Basophils (%) (Auto) 2 % (0-3) Neutrophils # (Auto) 2.2 x10^3uL (1.8-7.7) Lymphocytes # (Auto) 1.3 x10^3/uL (1.0-4.8) Monocytes # (Auto) 0.4 x10^3/uL (0.0-1.1) Eosinophils # (Auto) 0.1 x10^3/uL (0.0-0.7) Basophils # (Auto) 0.1 x10^3/uL (0.0-0.2) Sodium Level 137 mmol/L (136-145) Potassium Level 4.6 mmol/L (3.5-5.1) Chloride Level 102 mmol/L (98-107) Carbon Dioxide Level 23 mmol/L (21-32) Anion Gap 12 (6-14) Blood Urea Nitrogen 60 mg/dL (8-26) Creatinine 4.6 mg/dL (0.7-1.3) Estimated GFR (Cockcroft-Gault) 15.5 Glucose Level 222 mg/dL (70-99) Calcium Level 9.2 mg/dL (8.5-10.1) Triglycerides Level 143 mg/dL (0-150) Cholesterol Level 183 mg/dL (0-200) LDL Cholesterol, Calculated 115 mg/dL (0-100) VLDL Cholesterol, Calculated 29 mg/dL (0-40) Non-HDL Cholesterol Calculated 144 mg/dL (0-129) HDL Cholesterol 39 mg/dL (40-60) Cholesterol/HDL Ratio 4.7 Test 07/23/18 11:35 07/23/18 16:35 Glucose (Fingerstick) 121 mg/dL (70-99) 174 mg/dL (70-99) Laboratory Tests Test 07/22/18 17:50 07/22/18 21:21 07/23/18 03:55 07/23/18 07:13 Prothrombin Time 14.0 SEC (11.7-14.0) Prothromb Time International Ratio 1.1 (0.8-1.1) Troponin I Quantitative 1.060 ng/mL (0.000-0.055) 0.924 ng/mL (0.000-0.055) Glucose (Fingerstick) 236 mg/dL (70-99) 172 mg/dL (70-99) White Blood Count 4.1 x10^3/uL (4.0-11.0) Red Blood Count 3.30 x10^6/uL (4.30-5.70) Hemoglobin 9.3 g/dL (13.0-17.5) Hematocrit 28.5 % (39.0-53.0) Mean Corpuscular Volume 86 fL (79-100) Mean Corpuscular Hemoglobin 28 pg (25-35) Mean Corpuscular Hemoglobin Concent 33 g/dL (31-37) Red Cell Distribution Width 13.6 % (11.5-14.5) Platelet Count 453 x10^3/uL (140-400) Neutrophils (%) (Auto) 54 % (31-73) Lymphocytes (%) (Auto) 32 % (24-48) Monocytes (%) (Auto) 10 % (0-9) Eosinophils (%) (Auto) 3 % (0-3) Basophils (%) (Auto) 2 % (0-3) Neutrophils # (Auto) 2.2 x10^3uL (1.8-7.7) Lymphocytes # (Auto) 1.3 x10^3/uL (1.0-4.8) Monocytes # (Auto) 0.4 x10^3/uL (0.0-1.1) Eosinophils # (Auto) 0.1 x10^3/uL (0.0-0.7) Basophils # (Auto) 0.1 x10^3/uL (0.0-0.2) Sodium Level 137 mmol/L (136-145) Potassium Level 4.6 mmol/L (3.5-5.1) Chloride Level 102 mmol/L (98-107) Carbon Dioxide Level 23 mmol/L (21-32) Anion Gap 12 (6-14) Blood Urea Nitrogen 60 mg/dL (8-26) Creatinine 4.6 mg/dL (0.7-1.3) Estimated GFR (Cockcroft-Gault) 15.5 Glucose Level 222 mg/dL (70-99) Calcium Level 9.2 mg/dL (8.5-10.1) Triglycerides Level 143 mg/dL (0-150) Cholesterol Level 183 mg/dL (0-200) LDL Cholesterol, Calculated 115 mg/dL (0-100) VLDL Cholesterol, Calculated 29 mg/dL (0-40) Non-HDL Cholesterol Calculated 144 mg/dL (0-129) HDL Cholesterol 39 mg/dL (40-60) Cholesterol/HDL Ratio 4.7 Test 07/23/18 11:35 07/23/18 16:35 Glucose (Fingerstick) 121 mg/dL (70-99) 174 mg/dL (70-99) Review All relevant outside records, renal labs, imaging studies, telemetry/EKG's were reviewed. Images Images The right kidney measures 9.8 x 4.4 x 4.4 cm. The left kidney measures 9.9 x 4.0 x 4.8 cm. No evidence of hydronephrosis. The urinary bladder is mildly distended. Partially visualized moderate bilateral pleural effusions. IMPRESSION: 1. No evidence of hydronephrosis. BRAD CAO MD Jul 23, 2018 17:19
[2018-07-23 19:30] VITALS: BP 128/78
[2018-07-23 23:13] VITALS: BP 107/61
[2018-07-24 00:10] LABS: HEMOGLOBIN A1C 11.8 % (4.8-5.6)
[2018-07-24 03:45] VITALS: BP 124/83
[2018-07-24 07:10] VITALS: BP 111/75
[2018-07-24] MEDS: INSULIN LISPRO 300 UNITS/3 ML INSULN.PEN. SQ SCH ×3 (08:00→17:42)
[2018-07-24] MEDS: CARVEDILOL 3.125 MG TABLET. PO SCH ×2 (08:12→17:34)
[2018-07-24] MEDS: BENZONATATE 100 MG CAPSULE. PO PRN (08:12)
[2018-07-24] MEDS: ASPIRIN ENTERIC COATED 81 MG TABLET.DR. PO SCH (08:12)
[2018-07-24] MEDS: SENNOSIDES/DOCUSATE 8.6/50MG TABLET. PO SCH ×2 (08:12→20:53)
[2018-07-24] MEDS: FUROSEMIDE 40 MG/4 ML VIAL. IV SCH (08:13)
[2018-07-24] MEDS: ONDANSETRON PF 4 MG/2 ML VIAL. IV PRN (08:15)
[2018-07-24] MEDS: HEPARIN for SUB-Q USE 5,000 UNIT/ML VIAL. SQ SCH (09:00)
[2018-07-24] MEDS: NITROGLYCERIN 0.2MG/HR PATCH. TD SCH (10:16)
--- NOTE | 2018-07-24 11:01 | PDOC ---
PULMONARY PROGRESS NOTES Subjective mild cough, no soa Vitals Vital Signs Date Time Temp Pulse Resp B/P (MAP) Pulse Ox O2 Delivery O2 Flow Rate FiO2 07/24/18 08:12 84 111/75 07/24/18 07:10 97.4 16 92 Room Air 97.4 General: Alert, No acute distress Lungs: Other (decrease bases) Cardiovascular: S1 Abdomen: Soft Neuro Exam: Alert Extremities: Other (1+edema) Labs Laboratory Tests Test 07/22/18 17:06 07/22/18 17:50 07/22/18 21:21 07/23/18 03:55 Glucose (Fingerstick) 219 mg/dL (70-99) 236 mg/dL (70-99) Prothrombin Time 14.0 SEC (11.7-14.0) Prothromb Time International Ratio 1.1 (0.8-1.1) Troponin I Quantitative 1.060 ng/mL (0.000-0.055) 0.924 ng/mL (0.000-0.055) White Blood Count 4.1 x10^3/uL (4.0-11.0) Red Blood Count 3.30 x10^6/uL (4.30-5.70) Hemoglobin 9.3 g/dL (13.0-17.5) Hematocrit 28.5 % (39.0-53.0) Mean Corpuscular Volume 86 fL (79-100) Mean Corpuscular Hemoglobin 28 pg (25-35) Mean Corpuscular Hemoglobin Concent 33 g/dL (31-37) Red Cell Distribution Width 13.6 % (11.5-14.5) Platelet Count 453 x10^3/uL (140-400) Neutrophils (%) (Auto) 54 % (31-73) Lymphocytes (%) (Auto) 32 % (24-48) Monocytes (%) (Auto) 10 % (0-9) Eosinophils (%) (Auto) 3 % (0-3) Basophils (%) (Auto) 2 % (0-3) Neutrophils # (Auto) 2.2 x10^3uL (1.8-7.7) Lymphocytes # (Auto) 1.3 x10^3/uL (1.0-4.8) Monocytes # (Auto) 0.4 x10^3/uL (0.0-1.1) Eosinophils # (Auto) 0.1 x10^3/uL (0.0-0.7) Basophils # (Auto) 0.1 x10^3/uL (0.0-0.2) Sodium Level 137 mmol/L (136-145) Potassium Level 4.6 mmol/L (3.5-5.1) Chloride Level 102 mmol/L (98-107) Carbon Dioxide Level 23 mmol/L (21-32) Anion Gap 12 (6-14) Blood Urea Nitrogen 60 mg/dL (8-26) Creatinine 4.6 mg/dL (0.7-1.3) Estimated GFR (Cockcroft-Gault) 15.5 Glucose Level 222 mg/dL (70-99) Hemoglobin A1c 11.8 % (4.8-5.6) Calcium Level 9.2 mg/dL (8.5-10.1) Triglycerides Level 143 mg/dL (0-150) Cholesterol Level 183 mg/dL (0-200) LDL Cholesterol, Calculated 115 mg/dL (0-100) VLDL Cholesterol, Calculated 29 mg/dL (0-40) Non-HDL Cholesterol Calculated 144 mg/dL (0-129) HDL Cholesterol 39 mg/dL (40-60) Cholesterol/HDL Ratio 4.7 Test 07/23/18 07:13 07/23/18 11:35 07/23/18 16:35 07/23/18 21:03 Glucose (Fingerstick) 172 mg/dL (70-99) 121 mg/dL (70-99) 174 mg/dL (70-99) 139 mg/dL (70-99) Test 07/24/18 07:32 Glucose (Fingerstick) 189 mg/dL (70-99) Laboratory Tests Test 07/23/18 11:35 07/23/18 16:35 07/23/18 21:03 07/24/18 07:32 Glucose (Fingerstick) 121 mg/dL (70-99) 174 mg/dL (70-99) 139 mg/dL (70-99) 189 mg/dL (70-99) Medications Active Scripts Medications Dose Route/Sig Max Daily Dose Days Date Category Glipizide 5 Mg Tablet 1 Tab PO BID 07/22/18 Reported Lisinopril 2.5 Mg Tablet Unknown Dose PO DAILY 07/22/[address] CHEST Impression: Moderate to large bilateral pleural effusions with scattered bibasilar atelectasis and right lower lobe atelectasis. Impression . 1. Dyspnea secondary to bilateral interstitial edema, likely acute systolic heart failure. Clinically, less likely pneumonia, 2. Renal failure ?acute on chronic. 3. No significant history of tobacco use. 4. Abnormal chest x-ray with bilateral interstitial infiltrates and bibasilar airspace opacities. Likely congestive heart failure, CT chest c/w moderate to large effusions 5. Moderate protein-calorie malnutrition. 6. Abnormal liver function test could be related to hypoperfusion. 7. CMP (EF35%) Plan . 1. Oxygen p.r.n. 2. echocardiogram REVIEWED/ EF 35% 3. CT chest REVIEWED/ Moderate to large effusions. would benefit from right thoracentesis first. will schedule for Wednesday 4. Procalcitonin level only 0.1 5. Renal consult and recommendation. 6. Follow liver function tests. 7. Difficult to diurese due to renal failure, may need dialysis. follow Nephrology recommendation. 8. I discussed with RN / Pt agrees for thoracentesis 9. Cardiology rec DANISHA FAM MD Jul 24, 2018 11:01
[2018-07-24 11:30] VITALS: BP 133/82
[2018-07-24 15:30] VITALS: BP 126/83
--- NOTE | 2018-07-24 15:36 | PDOC ---
PROGRESS NOTES Chief Complaint Chief Complaint Pulmonary edema Dyspnea secondary to the above Elevated troponin asymptomatic Chronic kidney disease stage IIIb most likely Congestive heart failure which may be a combined dysfunction. No recorded ejection fraction in our institution Hypertension fairly controlled Diabetes mellitus type 2 Normocytic anemia of chronic inflammation History of Present Illness History of Present Illness 68-year-old gentleman who has a past medical history of hypertension diabetes. The patient received his health care at the [place] [facility]. Comes today with a history of more or less 2 days off increasingly dyspnea that started on exertion and has progressively gotten worse. The patient refers some bouts of paroxysmal nocturnal dyspnea in the past and today progressed to orthopnea reason why he decided to come to the emergency department. Of note is that the patient also refers some congestion and sinus pressure. Overnight still c/o cough. Seen by cardiology and nephrology. He has not been fully oriented today. Able to walk.the unit. Plan NPO for thoracentesis tomorrow Observe a 2 g sodium diet Fluid restriction Follow troponin trend We'll consult cardiology Request records from the [place] We'll give nitroglycerin when necessary for discomfort Diuresis with Lasix, back off to once per nephro recs consult pulmonology for his cough DVT prophylaxis: scd and teds Vitals Vitals Vital Signs Date Time Temp Pulse Resp B/P (MAP) Pulse Ox O2 Delivery O2 Flow Rate FiO2 07/24/18 11:30 97.4 85 16 133/82 (99) 92 Room Air 97.4 Physical Exam General: mild distress Heart: Regular rate Lungs: Other (decrease bases) Abdomen: Normal bowel sounds Extremities: Other (1+ bilateral LE edema ) Skin: No significant lesion Labs LABS Laboratory Tests Test 07/23/18 16:35 07/23/18 21:03 07/24/18 07:32 Glucose (Fingerstick) 174 mg/dL (70-99) 139 mg/dL (70-99) 189 mg/dL (70-99) Assessment and Plan Assessmemt and Plan Problems Medical Problems: (1) CHF (congestive heart failure) Status: Acute (2) Elevated troponin Status: Acute (3) Hyperkalemia Status: Acute (4) Renal failure Status: Acute Comment Review of Relevant I have reviewed the following items chayo (where applicable) has been applied. Labs Laboratory Tests Test 07/22/18 17:06 07/22/18 17:50 07/22/18 21:21 07/23/18 03:55 Glucose (Fingerstick) 219 mg/dL (70-99) 236 mg/dL (70-99) Prothrombin Time 14.0 SEC (11.7-14.0) Prothromb Time International Ratio 1.1 (0.8-1.1) Troponin I Quantitative 1.060 ng/mL (0.000-0.055) 0.924 ng/mL (0.000-0.055) White Blood Count 4.1 x10^3/uL (4.0-11.0) Red Blood Count 3.30 x10^6/uL (4.30-5.70) Hemoglobin 9.3 g/dL (13.0-17.5) Hematocrit 28.5 % (39.0-53.0) Mean Corpuscular Volume 86 fL (79-100) Mean Corpuscular Hemoglobin 28 pg (25-35) Mean Corpuscular Hemoglobin Concent 33 g/dL (31-37) Red Cell Distribution Width 13.6 % (11.5-14.5) Platelet Count 453 x10^3/uL (140-400) Neutrophils (%) (Auto) 54 % (31-73) Lymphocytes (%) (Auto) 32 % (24-48) Monocytes (%) (Auto) 10 % (0-9) Eosinophils (%) (Auto) 3 % (0-3) Basophils (%) (Auto) 2 % (0-3) Neutrophils # (Auto) 2.2 x10^3uL (1.8-7.7) Lymphocytes # (Auto) 1.3 x10^3/uL (1.0-4.8) Monocytes # (Auto) 0.4 x10^3/uL (0.0-1.1) Eosinophils # (Auto) 0.1 x10^3/uL (0.0-0.7) Basophils # (Auto) 0.1 x10^3/uL (0.0-0.2) Sodium Level 137 mmol/L (136-145) Potassium Level 4.6 mmol/L (3.5-5.1) Chloride Level 102 mmol/L (98-107) Carbon Dioxide Level 23 mmol/L (21-32) Anion Gap 12 (6-14) Blood Urea Nitrogen 60 mg/dL (8-26) Creatinine 4.6 mg/dL (0.7-1.3) Estimated GFR (Cockcroft-Gault) 15.5 Glucose Level 222 mg/dL (70-99) Hemoglobin A1c 11.8 % (4.8-5.6) Calcium Level 9.2 mg/dL (8.5-10.1) Triglycerides Level 143 mg/dL (0-150) Cholesterol Level 183 mg/dL (0-200) LDL Cholesterol, Calculated 115 mg/dL (0-100) VLDL Cholesterol, Calculated 29 mg/dL (0-40) Non-HDL Cholesterol Calculated 144 mg/dL (0-129) HDL Cholesterol 39 mg/dL (40-60) Cholesterol/HDL Ratio 4.7 Test 07/23/18 07:13 07/23/18 11:35 07/23/18 16:35 07/23/18 21:03 Glucose (Fingerstick) 172 mg/dL (70-99) 121 mg/dL (70-99) 174 mg/dL (70-99) 139 mg/dL (70-99) Test 07/24/18 07:32 Glucose (Fingerstick) 189 mg/dL (70-99) Laboratory Tests Test 07/23/18 16:35 07/23/18 21:03 07/24/18 07:32 Glucose (Fingerstick) 174 mg/dL (70-99) 139 mg/dL (70-99) 189 mg/dL (70-99) Microbiology 07/22/18 Blood Culture - Preliminary, Resulted NO GROWTH AFTER 2 DAYS Medications Current Medications Albuterol Sulfate (Ventolin Neb Soln) 2.5 mg 1X ONCE NEB Last administered on 07/22/18at 09:05; Start 07/22/18 at 08:30; Stop 07/22/18 at 09:07; Status DC Sodium Chloride 1,000 ml @ 1,000 mls/hr 1X ONCE IV Last administered on at 10:20; Start 07/22/18 at 10:15; Stop 07/22/18 at 11:14; Status DC Sodium Polystyrene Sulfonate (Kayexalate) 15 gm 1X ONCE PO Last administered on 07/22/18at 10:20; Start 07/22/18 at 10:15; Stop 07/22/18 at 10:16; Status DC Lisinopril (Prinivil) 20 mg DAILY PO Last administered on 07/23/18 07:51; Start 07/22/18 at 14:00; Stop 07/23/18 at 15:26; Status DC Nitroglycerin (Nitro-Dur) 1 patch DAILY TD Last administered on 07/24/18 10:16 ; Start 07/22/18 at 14:00 Furosemide (Lasix) 40 mg BID92 IV Last administered on 07/23/18 14:33; Start at 14:00; Stop 07/23/18 at 15:21; Status DC Spironolactone (Aldactone) 25 mg DAILY PO Last administered on 07/23/18 07:51; Start 07/22/18 at 14:00; Stop 07/23/18 at 15:26; Status DC Heparin Sodium (Porcine) (Heparin Sodium) 5,000 unit Q12HR SQ Last administered on 07/23/18 21:14; Start 07/22/18 at 14:00; Stop 07/24/18 at 10:35; Status DC Sodium Chloride (Normal Saline Flush) 3 ml QSHIFT PRN IV AFTER MEDS AND BLOOD DRAWS; Start 07/22/18 at 13:00 Ondansetron HCl (Zofran) 4 mg PRN Q6HRS PRN IV NAUSEA/VOMITING; Start 07/22/18 at 13:00; Stop 07/23/18 at 16:58; Status DC Zolpidem Tartrate (Ambien) 5 mg PRN QHS PRN PO INSOMNIA, MAY REPEAT IN 1HR; Start 07/22/18 at 13:00 Info (Non-Icu Electrolyte Protocol) 1 ea PRN DAILY PRN MC SEE COMMENTS; Start 07/22/18 at 13:00 Acetaminophen/ Hydrocodone Bitart (Lortab 5/325) 1 tab PRN Q4HRS PRN PO MILD PAIN; Start 07/22/18 at 13:00 Acetaminophen (Tylenol) 650 mg PRN Q6HRS PRN PO Headaches, Temp > 101.5F Last administered on 07/23/18at 10:30; Start 07/22/18 at 13:00 Senna/Docusate Sodium (Senna Plus) 1 tab BID PO Last administered on 07/24/18at 08:12; Start 07/22/18 at 21:00 Lactulose (Lactulose) 20 gm PRN Q12HR PRN PO CONSTIPATION; Start 07/22/18 at 13: 00 Insulin Human Lispro (HumaLOG) 0-5 UNITS TIDWMEALS SQ Last administered on 07/24 12:11; Start 07/22/18 at 17:00 Dextrose (Dextrose 50%-Water Syringe) 12.5 gm PRN Q15MIN PRN IV SEE COMMENTS; Start 07/22/18 at 16:45 Aspirin (Huseyin Aspirin) 325 mg 1X ONCE PO Last administered on 07/22/18 17:18 ; Start 07/22/18 at 17:15; Stop 07/22/18 at 17:16; Status DC Aspirin (Ecotrin) 81 mg DAILYWBKFT PO Last administered on 07/24/18 08:12; Start 07/23/18 at 08:00 Carvedilol (Coreg) 3.125 mg BIDWMEALS PO Last administered on 07/24/18 08:12; Start 07/22/18 at 17:30 Benzonatate (Tessalon Perle) 100 mg PRN Q6HRS PRN PO COUGH, 2ND CHOICE Last administered on 07/24/18 08:12; Start 07/22/18 at 21:00 Guaifenesin/ Codeine Phosphate (Robitussin Ac) 5 ml PRN Q6HRS PRN PO COUGH, 1ST CHOICE Last administered on 07/23/18 22:31; Start 07/22/18 at 23:00; Stop 04/01 at 00:36; Status DC Furosemide (Lasix) 40 mg DAILY IV Last administered on 07/24/18 08:13; Start 07/24/18 at 09:00 Throat Lozenges (Cepacol Sore Throat Lozenge) 1 aissatou PRN Q2HRS PRN PO SORE THROAT Last administered on 07/23/18 22:31; Start 07/23/18 at 17:00 Ondansetron HCl (Zofran) 4 mg PRN Q6HRS PRN IV NAUSEA/VOMITING Last administered on 07/24/18 08:15; Start 07/23/18 at 17:00 Active Scripts Active Reported Glipizide 5 Mg Tablet 1 Tab PO BID Lisinopril 2.5 Mg Tablet Unknown Dose PO DAILY Vitals/I & O Vital Sign - Last 24 Hours 07/23/18 07/23/18 07/23/18 07/24/18 17:04 19:30 23:13 03:45 Temp 98.3 98.1 98.0 98.3 98.1 98.0 Pulse 90 89 84 83 Resp 22 22 17 B/P (MAP) 145/91 128/78 (95) 107/61 (76) 124/83 (97) Pulse Ox 92 94 90 O2 Delivery Room Air Room Air Room Air 07/24/18 07/24/18 07/24/18 07:10 08:12 11:30 Temp 97.4 97.4 97.4 97.4 Pulse 84 84 85 Resp 16 16 B/P (MAP) 111/75 (87) 111/75 133/82 (99) Pulse Ox 92 92 O2 Delivery Room Air Room Air Intake and Output 07/23/18 07/23/18 07/24/18 15:01 23:01 07:01 Intake Total 600 ml 200 ml Output Total 200 ml 800 ml 0 ml Balance 400 ml -800 ml 200 ml MELISSA BHATTI MD Jul 24, 2018 15:36
[2018-07-24 19:35] VITALS: BP 124/79
[2018-07-24 22:28] VITALS: BP 121/74
[2018-07-25] VITALS (23 sets, daily range): BP systolic 112–150; BP diastolic 67–87
[2018-07-25 04:30] LABS: CALCIUM 8.8 mg/dL (8.5-10.1); CREATININE 4.8 mg/dL (0.7-1.3); GFR 14.8; POTASSIUM 4.7 mmol/L (3.5-5.1)
--- NOTE | 2018-07-25 05:35 | NUR ---
FACULTY CO-SIGN I have reviewed the documentation by director industrial nursing: Addendum: 07/25/18 at 0536 by HETAL DOBSON RN RN I have reviewed the documentation by director industrial nursing: Gisel Covington
[2018-07-25] MEDS: INSULIN LISPRO 300 UNITS/3 ML INSULN.PEN. SQ SCH ×4 (08:00→17:49)
[2018-07-25] MEDS: SENNOSIDES/DOCUSATE 8.6/50MG TABLET. PO SCH ×2 (09:00→21:07)
--- NOTE | 2018-07-25 09:09 | PDOC ---
PULMONARY PROGRESS NOTES Subjective PT NOT MORE SOA Vitals Vital Signs Date Time Temp Pulse Resp B/P (MAP) Pulse Ox O2 Delivery O2 Flow Rate FiO2 07/25/18 07:00 97.9 84 16 112/67 (82) 91 Room Air 97.9 General: Alert, No acute distress Lungs: Other (decrease bases) Cardiovascular: S1 Abdomen: Soft Neuro Exam: Alert Extremities: Other (1+edema) Labs Laboratory Tests Test 07/23/18 11:35 07/23/18 16:35 07/23/18 21:03 07/24/18 07:32 Glucose (Fingerstick) 121 mg/dL (70-99) 174 mg/dL (70-99) 139 mg/dL (70-99) 189 mg/dL (70-99) Test 07/24/18 11:58 07/24/18 17:04 07/24/18 21:11 07/25/18 02:55 Glucose (Fingerstick) 232 mg/dL (70-99) 218 mg/dL (70-99) 141 mg/dL (70-99) Sodium Level 137 mmol/L (136-145) Potassium Level 4.7 mmol/L (3.5-5.1) Chloride Level 104 mmol/L (98-107) Carbon Dioxide Level 22 mmol/L (21-32) Anion Gap 11 (6-14) Blood Urea Nitrogen 63 mg/dL (8-26) Creatinine 4.8 mg/dL (0.7-1.3) Estimated GFR (Cockcroft-Gault) 14.8 Glucose Level 141 mg/dL (70-99) Calcium Level 8.8 mg/dL (8.5-10.1) Test 07/25/18 07:40 Glucose (Fingerstick) 116 mg/dL (70-99) Laboratory Tests Test 07/24/18 11:58 07/24/18 17:04 07/24/18 21:11 07/25/18 02:55 Glucose (Fingerstick) 232 mg/dL (70-99) 218 mg/dL (70-99) 141 mg/dL (70-99) Sodium Level 137 mmol/L (136-145) Potassium Level 4.7 mmol/L (3.5-5.1) Chloride Level 104 mmol/L (98-107) Carbon Dioxide Level 22 mmol/L (21-32) Anion Gap 11 (6-14) Blood Urea Nitrogen 63 mg/dL (8-26) Creatinine 4.8 mg/dL (0.7-1.3) Estimated GFR (Cockcroft-Gault) 14.8 Glucose Level 141 mg/dL (70-99) Calcium Level 8.8 mg/dL (8.5-10.1) Test 07/25/18 07:40 Glucose (Fingerstick) 116 mg/dL (70-99) Medications Active Scripts Medications Dose Route/Sig Max Daily Dose Days Date Category Glipizide 5 Mg Tablet 1 Tab PO BID 07/22/18 Reported Lisinopril 2.5 Mg Tablet Unknown Dose PO DAILY 07/22/[address] CHEST Impression: Moderate to large bilateral pleural effusions with scattered bibasilar atelectasis and right lower lobe atelectasis. Impression . 1. Dyspnea secondary to bilateral interstitial edema, likely acute systolic heart failure 2. Renal failure ?acute on chronic. 3. No significant history of tobacco use. 4. Abnormal chest x-ray with bilateral interstitial infiltrates and bibasilar airspace opacities. Likely congestive heart failure, CT chest c/w moderate to large effusions 5. Moderate protein-calorie malnutrition. 6. Abnormal liver function test could be related to hypoperfusion. 7. CMP (EF35%) Plan . THORACENTESIS TODAY FOLLOW NEPHRO WILL CONTINUE THE SAME MISTY NIETO MD Jul 25, 2018 09:09
[2018-07-25] MEDS: ASPIRIN ENTERIC COATED 81 MG TABLET.DR. PO SCH (09:11)
[2018-07-25] MEDS: NITROGLYCERIN 0.2MG/HR PATCH. TD SCH (09:11)
[2018-07-25] MEDS: BENZONATATE 100 MG CAPSULE. PO PRN (09:11)
[2018-07-25] MEDS: CARVEDILOL 3.125 MG TABLET. PO SCH ×2 (09:12→17:42)
[2018-07-25] MEDS: FUROSEMIDE 40 MG/4 ML VIAL. IV SCH (09:12)
--- NOTE | 2018-07-25 11:50 | NUR ---
SS following for discharge planning. SS reviewed pt chart. Pt is from home with room air. PT recommended penitentiary unit. [facility] has [facility]. SS met with pt and discussed if he had another form of insurance. Pt reported that he does not have any other insurance. He reported that he goes to the [facility] and stated that he does not know who is social services is or if he is service connected. SS attempted to contact the [facility] for more information. SS will continue to follow for discharge planning. At this time, pt does not have insurance available for penitentiary unit or rehab services. SS will continue to contact the [place] for more information to see if pt qualifies [facility] through the [facility].
--- NOTE | 2018-07-25 13:59 | PDOC ---
PROGRESS NOTES Chief Complaint Chief Complaint .Pulmonary edema Pleural Effusion Dyspnea Elevated troponin asymptomatic Chronic kidney disease stage IIIb most likely Congestive heart failure which may be a combined dysfunction. No recorded ejection fraction in our institution Hypertension Diabetes mellitus type 2 Normocytic anemia of chronic inflammation History of Present Illness History of Present Illness Pt is a 68 y/o male who was admitted with CHF exacerbation and renal failure. Today the pt is awake, laying in bed and in NAD. He states they took off a liter of fluid during his thoracentesis this morning. He states he has a mild cough. He states he has never been told he has CHF or any kidney disease. He has no other complaints at this time. I discussed the pt with his RN. Vitals Vitals Vital Signs Date Time Temp Pulse Resp B/P (MAP) Pulse Ox O2 Delivery O2 Flow Rate FiO2 07/25/18 10:52 98.0 85 16 134/78 (96) 90 Room Air 98.0 07/25/18 10:00 2.0 Physical Exam General: Alert, mild distress Heart: Regular rate, No murmurs Lungs: Clear, Other (decrease bases) Abdomen: Normal bowel sounds, No tenderness Extremities: No clubbing, No cyanosis, Other (Bilateral LE edema ) Skin: No rashes, No significant lesion Labs LABS Laboratory Tests Test 07/24/18 17:04 07/24/18 21:11 07/25/18 02:55 07/25/18 07:40 Glucose (Fingerstick) 218 mg/dL (70-99) 141 mg/dL (70-99) 116 mg/dL (70-99) Sodium Level 137 mmol/L (136-145) Potassium Level 4.7 mmol/L (3.5-5.1) Chloride Level 104 mmol/L (98-107) Carbon Dioxide Level 22 mmol/L (21-32) Anion Gap 11 (6-14) Blood Urea Nitrogen 63 mg/dL (8-26) Creatinine 4.8 mg/dL (0.7-1.3) Estimated GFR (Cockcroft-Gault) 14.8 Glucose Level 141 mg/dL (70-99) Calcium Level 8.8 mg/dL (8.5-10.1) Test 07/25/18 11:35 Glucose (Fingerstick) 240 mg/dL (70-99) Review of Systems Review of Systems Gen: denies fever or chills HEENT: denies sore throat or rhinorrhea Heart: denies CP, palpitations Lung: complains of mild cough. denies SOA Abd: denies pain or diarrhea Assessment and Plan Assessmemt and Plan Assessment: S/p right thoracentesis CHF exacerbation Chronic kidney disease Dyspnea Elevated troponin asymptomatic Hypertension Diabetes mellitus type 2 Normocytic anemia of chronic inflammation Plan: Awaiting thoracentesis fluid analysis Considering dialysis, follow nephrology recommendation Cardiac monitoring Wound care Lab PT/OT Home meds Appreciate subspecialist input Comment Review of Relevant I have reviewed the following items chayo (where applicable) has been applied. Labs Laboratory Tests Test 07/23/18 16:35 07/23/18 21:03 07/24/18 07:32 07/24/18 11:58 Glucose (Fingerstick) 174 mg/dL (70-99) 139 mg/dL (70-99) 189 mg/dL (70-99) 232 mg/dL (70-99) Test 07/24/18 17:04 07/24/18 21:11 07/25/18 02:55 07/25/18 07:40 Glucose (Fingerstick) 218 mg/dL (70-99) 141 mg/dL (70-99) 116 mg/dL (70-99) Sodium Level 137 mmol/L (136-145) Potassium Level 4.7 mmol/L (3.5-5.1) Chloride Level 104 mmol/L (98-107) Carbon Dioxide Level 22 mmol/L (21-32) Anion Gap 11 (6-14) Blood Urea Nitrogen 63 mg/dL (8-26) Creatinine 4.8 mg/dL (0.7-1.3) Estimated GFR (Cockcroft-Gault) 14.8 Glucose Level 141 mg/dL (70-99) Calcium Level 8.8 mg/dL (8.5-10.1) Test 07/25/18 11:35 Glucose (Fingerstick) 240 mg/dL (70-99) Laboratory Tests Test 07/24/18 17:04 07/24/18 21:11 07/25/18 02:55 07/25/18 07:40 Glucose (Fingerstick) 218 mg/dL (70-99) 141 mg/dL (70-99) 116 mg/dL (70-99) Sodium Level 137 mmol/L (136-145) Potassium Level 4.7 mmol/L (3.5-5.1) Chloride Level 104 mmol/L (98-107) Carbon Dioxide Level 22 mmol/L (21-32) Anion Gap 11 (6-14) Blood Urea Nitrogen 63 mg/dL (8-26) Creatinine 4.8 mg/dL (0.7-1.3) Estimated GFR (Cockcroft-Gault) 14.8 Glucose Level 141 mg/dL (70-99) Calcium Level 8.8 mg/dL (8.5-10.1) Test 07/25/18 11:35 Glucose (Fingerstick) 240 mg/dL (70-99) Microbiology 07/22/18 Blood Culture - Preliminary, Resulted NO GROWTH AFTER 3 DAYS Medications Current Medications Albuterol Sulfate (Ventolin Neb Soln) 2.5 mg 1X ONCE NEB Last administered on 07/22/18 09:05; Start 07/22/18 at 08:30; Stop 07/22/18 at 09:07; Status DC Sodium Chloride 1,000 ml @ 1,000 mls/hr 1X ONCE IV Last administered on 10:20; Start 07/22/18 at 10:15; Stop 07/22/18 at 11:14; Status DC Sodium Polystyrene Sulfonate (Kayexalate) 15 gm 1X ONCE PO Last administered on 07/22/18 10:20; Start 07/22/18 at 10:15; Stop 07/22/18 at 10:16; Status DC Lisinopril (Prinivil) 20 mg DAILY PO Last administered on 07/23/18 07:51; Start 07/22/18 at 14:00; Stop 07/23/18 at 15:26; Status DC Nitroglycerin (Nitro-Dur) 1 patch DAILY TD Last administered on 07/25/18 09:11 ; Start 07/22/18 at 14:00 Furosemide (Lasix) 40 mg BID92 IV Last administered on 07/23/18 14:33; Start at 14:00; Stop 07/23/18 at 15:21; Status DC Spironolactone (Aldactone) 25 mg DAILY PO Last administered on 07/23/18 07:51; Start 07/22/18 at 14:00; Stop 07/23/18 at 15:26; Status DC Heparin Sodium (Porcine) (Heparin Sodium) 5,000 unit Q12HR SQ Last administered on 07/23/18at 21:14; Start 07/22/18 at 14:00; Stop 07/24/18 at 10:35; Status DC Sodium Chloride (Normal Saline Flush) 3 ml QSHIFT PRN IV AFTER MEDS AND BLOOD DRAWS; Start 07/22/18 at 13:00 Ondansetron HCl (Zofran) 4 mg PRN Q6HRS PRN IV NAUSEA/VOMITING; Start 07/22/18 at 13:00; Stop 07/23/18 at 16:58; Status DC Zolpidem Tartrate (Ambien) 5 mg PRN QHS PRN PO INSOMNIA, MAY REPEAT IN 1HR; Start 07/22/18 at 13:00 Info (Non-Icu Electrolyte Protocol) 1 ea PRN DAILY PRN MC SEE COMMENTS; Start 07/22/18 at 13:00 Acetaminophen/ Hydrocodone Bitart (Lortab 5/325) 1 tab PRN Q4HRS PRN PO MILD PAIN; Start 07/22/18 at 13:00 Acetaminophen (Tylenol) 650 mg PRN Q6HRS PRN PO Headaches, Temp > 101.5F Last administered on 07/23/18at 10:30; Start 07/22/18 at 13:00 Senna/Docusate Sodium (Senna Plus) 1 tab BID PO Last administered on 07/24/18at 20:53; Start 07/22/18 at 21:00 Lactulose (Lactulose) 20 gm PRN Q12HR PRN PO CONSTIPATION; Start 07/22/18 at 13: 00 Insulin Human Lispro (HumaLOG) 0-5 UNITS TIDWMEALS SQ Last administered on 07/25at 12:20; Start 07/22/18 at 17:00 Dextrose (Dextrose 50%-Water Syringe) 12.5 gm PRN Q15MIN PRN IV SEE COMMENTS; Start 07/22/18 at 16:45 Aspirin (Huseyin Aspirin) 325 mg 1X ONCE PO Last administered on 07/22/18at 17:18 ; Start 07/22/18 at 17:15; Stop 07/22/18 at 17:16; Status DC Aspirin (Ecotrin) 81 mg DAILYWBKFT PO Last administered on 07/25/18 09:11; Start 07/23/18 at 08:00 Carvedilol (Coreg) 3.125 mg BIDWMEALS PO Last administered on 07/25/18 09:12; Start 07/22/18 at 17:30 Benzonatate (Tessalon Perle) 100 mg PRN Q6HRS PRN PO COUGH Last administered on 07/25/18 09:11; Start 07/22/18 at 21:00 Guaifenesin/ Codeine Phosphate (Robitussin Ac) 5 ml PRN Q6HRS PRN PO COUGH, 1ST CHOICE Last administered on 07/23/18 22:31; Start 07/22/18 at 23:00; Stop 04/01 at 00:36; Status DC Furosemide (Lasix) 40 mg DAILY IV Last administered on 07/25/18 09:12; Start 07/24/18 at 09:00 Throat Lozenges (Cepacol Sore Throat Lozenge) 1 aissatou PRN Q2HRS PRN PO SORE THROAT Last administered on 07/23/18 22:31; Start 07/23/18 at 17:00 Ondansetron HCl (Zofran) 4 mg PRN Q6HRS PRN IV NAUSEA/VOMITING Last administered on 07/24/18 08:15; Start 07/23/18 at 17:00 Active Scripts Active Reported Glipizide 5 Mg Tablet 1 Tab PO BID Lisinopril 2.5 Mg Tablet Unknown Dose PO DAILY Vitals/I & O Vital Sign - Last 24 Hours 07/24/18 07/24/18 07/24/18 07/24/18 15:30 17:34 19:30 19:35 Temp 97.6 97.4 97.6 97.4 Pulse 85 85 83 Resp 16 16 B/P (MAP) 126/83 (97) 126/83 124/79 (94) Pulse Ox 93 94 O2 Delivery Room Air Room Air Room Air 07/24/18 07/24/18 07/25/18 07/25/18 20:00 22:28 02:56 07:00 Temp 98.2 98.2 97.9 98.2 98.2 97.9 Pulse 86 85 84 Resp 16 16 16 B/P (MAP) 121/74 (90) 122/76 (91) 112/67 (82) Pulse Ox 92 93 91 O2 Delivery Room Air Room Air Room Air Room Air 07/25/18 07/25/18 07/25/18 07/25/18 08:00 09:12 09:50 09:55 Pulse 89 92 89 Resp 20 20 B/P (MAP) 112/67 145/80 (101) 150/86 (107) Pulse Ox 86 98 O2 Delivery Room Air Room Air Nasal Cannula O2 Flow Rate 2.0 2.0 07/25/18 07/25/18 07/25/18 10:00 10:05 10:52 Temp 98.0 98.0 Pulse 88 88 85 Resp 20 20 16 B/P (MAP) 148/85 (106) 142/85 (104) 134/78 (96) Pulse Ox 100 93 90 O2 Delivery Nasal Cannula Room Air Room Air O2 Flow Rate 2.0 Intake and Output 07/24/18 07/24/18 07/25/18 15:01 23:01 07:01 Intake Total 500 ml 250 ml Output Total 350 ml 550 ml 550 ml Balance -350 ml -50 ml -300 ml KAY CARROLL III DO Jul 25, 2018 13:59
--- NOTE | 2018-07-25 15:02 | PDOC ---
Renal-Progress Notes Subjective Notes Notes LESS SOB History of Present Illness Hx of present illness BETTER Vitals Vitals Vital Signs Date Time Temp Pulse Resp B/P (MAP) Pulse Ox O2 Delivery O2 Flow Rate FiO2 07/25/18 14:52 97.4 87 16 129/73 (91) 90 Room Air 97.4 07/25/18 10:00 2.0 Weight Weight [ ] I.O. Intake and Output Intake and Output 07/25/18 07:01 Intake Total 750 ml Output Total 1450 ml Balance -700 ml Intake Oral 750 ml Output Urine Total 1350 ml Emesis 100 ml Labs Labs Laboratory Tests Test 07/24/18 17:04 07/24/18 21:11 07/25/18 02:55 07/25/18 07:40 Glucose (Fingerstick) 218 mg/dL (70-99) 141 mg/dL (70-99) 116 mg/dL (70-99) Sodium Level 137 mmol/L (136-145) Potassium Level 4.7 mmol/L (3.5-5.1) Chloride Level 104 mmol/L (98-107) Carbon Dioxide Level 22 mmol/L (21-32) Anion Gap 11 (6-14) Blood Urea Nitrogen 63 mg/dL (8-26) Creatinine 4.8 mg/dL (0.7-1.3) Estimated GFR (Cockcroft-Gault) 14.8 Glucose Level 141 mg/dL (70-99) Calcium Level 8.8 mg/dL (8.5-10.1) Test 07/25/18 11:35 Glucose (Fingerstick) 240 mg/dL (70-99) Micro Micro Microbiology 07/22/18 Blood Culture - Preliminary, Resulted NO GROWTH AFTER 3 DAYS Review of Systems Constitutional: yes: weakness, alert, oriented Ears/Nose/Throat: Yes: no symptom reported Eyes: Yes: no symptom reported Pulmonary: Yes dyspnea Cardiovascular: Yes no symptom reported Gastrointestional: Yes: no symptom reported Genitourinary: Yes: no symptom reported Musculoskeletal: Yes: no symptom reported Skin: Yes no symptom reported Psychiatric/Neurological: Yes: pre-existing deficit Endocrine: Yes: no symptom reported Physical Exam General Appearance: no apparent distress, afebrile Skin: warm Respiratory: decreased breath sounds Heart: S1S2 Abdomen: soft, bowel sounds present Genitourinary: bladder flat Extremities: pulses present Neurology: alert, oriented Assessment Assessment IMP CKD STAGE 4-CR STABLE AT 4.8 ANEMIA DM II HTN SYSTOLIC CHF PL EFFUSION PLAN S/P THORACENTESIS DIURESIS-CHANGE TO PP OP F/U ONCE DISCHARGED WILL FOLLOW [facility] MD Jul 25, 2018 15:02
--- NOTE | 2018-07-25 16:19 | RAD ---
Ultrasound-guided right-sided thoracentesis 07/25/2018 4:13 PM Indication: Right Pleural Effusion Procedure: Informed consent was obtained. A timeout procedure was performed. Sonographic evaluation of the right chest was performed demonstrating moderate pleural effusion. The right posterior chest was prepped and draped in sterile fashion. 1% lidocaine without epinephrine was administered for local anesthesia. Real-time ultrasonographic guidance was used in passing a 5 Turkish Yueh catheter into the ] pleural space. 1.2 L of serosanguineous pleural fluid was removed. Samples of fluid were sent to the lab for further evaluation per ordering physician request. The catheter was removed and pressure held to achieve hemostasis. A sterile dressing was applied. No immediate complications were identified. The patient tolerated the procedure well. Impression: Right sided ultrasound-guided thoracentesis
--- NOTE | 2018-07-25 17:30 | PDOC ---
PROGRESS NOTES Subjective Subjective c/o cough Objective Objective Vital Signs Date Time Temp Pulse Resp B/P (MAP) Pulse Ox O2 Delivery O2 Flow Rate FiO2 07/25/18 14:52 97.4 87 16 129/73 (91) 90 Room Air 97.4 07/25/18 10:00 2.0 Intake and Output 07/25/18 07:01 Intake Total 750 ml Output Total 1450 ml Balance -700 ml Intake Oral 750 ml Output Urine Total 1350 ml Emesis 100 ml Physical Exam Abdomen: Normal bowel sounds, No tenderness Heart: Regular rate, No murmurs Extremities: No clubbing, No cyanosis, Other (Bilateral LE edema ) General: Alert HEENT: Atraumatic, Mucous membr. moist/pink Lungs: Other (mildly decreased breath sounds) Neuro: Normal speech Psych/Mental Status: Mental status NL, Mood NL Skin: No rashes Assessment Assessment 1. Acute respiratory failure secondary to acute on chronic systolic heart failure. Improved since admission. 2. Acute on chronic systolic heart failure. 2-D echo showed LVEF 30-35%. Better compensated. Continue current medical regimen. 3. NSTEMI; initial trop 1.1. Probable demand ischemia in the setting of renal failure. Continuing medical treatment. No use of contrast at this time due to the patient's renal dysfunction. We will consider Lexiscan nuclear stress test possibly as an outpatient. 4. Acute on chronic renal insufficiency: Nephrology following 5. Hypertension; controlled 6. Diabetes mellitus type II: Treat per IM Plan Plan of Care Problems Medical Problems: (1) CHF (congestive heart failure) Status: Acute (2) Elevated troponin Status: Acute (3) Hyperkalemia Status: Acute (4) Renal failure Status: Acute Comment Review of Relevant I have reviewed the following items chayo (where applicable) has been applied. Labs Laboratory Tests Test 07/24/18 21:11 07/25/18 02:55 07/25/18 07:40 07/25/18 11:35 Glucose (Fingerstick) 141 mg/dL (70-99) 116 mg/dL (70-99) 240 mg/dL (70-99) Sodium Level 137 mmol/L (136-145) Potassium Level 4.7 mmol/L (3.5-5.1) Chloride Level 104 mmol/L (98-107) Carbon Dioxide Level 22 mmol/L (21-32) Anion Gap 11 (6-14) Blood Urea Nitrogen 63 mg/dL (8-26) Creatinine 4.8 mg/dL (0.7-1.3) Estimated GFR (Cockcroft-Gault) 14.8 Glucose Level 141 mg/dL (70-99) Calcium Level 8.8 mg/dL (8.5-10.1) Test 07/25/18 16:46 Glucose (Fingerstick) 220 mg/dL (70-99) Microbiology 07/22/18 Blood Culture - Preliminary, Resulted NO GROWTH AFTER 3 DAYS Medications Current Medications Furosemide (Lasix) 40 mg BID92 PO ; Start 07/25/18 at 15:00 Vitals/I & O Vital Sign - Last 24 Hours 07/24/18 07/24/18 07/24/18 07/24/18 17:34 19:30 19:35 20:00 Temp 97.4 97.4 Pulse 85 83 Resp 16 B/P (MAP) 126/83 124/79 (94) Pulse Ox 94 O2 Delivery Room Air Room Air Room Air 07/24/18 07/25/18 07/25/18 07/25/18 22:28 02:56 07:00 08:00 Temp 98.2 98.2 97.9 98.2 98.2 97.9 Pulse 86 85 84 Resp 16 16 16 B/P (MAP) 121/74 (90) 122/76 (91) 112/67 (82) Pulse Ox 92 93 91 O2 Delivery Room Air Room Air Room Air Room Air O2 Flow Rate 2.0 07/25/18 07/25/18 07/25/18 07/25/18 09:12 09:50 09:55 10:00 Pulse 89 92 89 88 Resp 20 20 20 B/P (MAP) 112/67 145/80 (101) 150/86 (107) 148/85 (106) Pulse Ox 86 98 100 O2 Delivery Room Air Nasal Cannula Nasal Cannula O2 Flow Rate 2.0 2.0 07/25/18 07/25/18 07/25/18 07/25/18 10:05 10:52 11:00 11:15 Temp 98.0 98.0 Pulse 88 85 82 82 Resp 20 16 B/P (MAP) 142/85 (104) 134/78 (96) 133/80 (97) 135/79 (97) Pulse Ox 93 90 90 90 O2 Delivery Room Air Room Air Room Air Room Air 07/25/18 07/25/18 07/25/18 07/25/18 11:30 11:45 12:00 12:15 Pulse 84 84 84 86 B/P (MAP) 137/83 (101) 143/87 (105) 135/80 (98) 133/77 (95) Pulse Ox 94 91 87 93 O2 Delivery Room Air Room Air Room Air Room Air 07/25/18 07/25/18 07/25/18 07/25/18 12:30 12:45 13:00 13:15 Pulse 86 92 88 90 B/P (MAP) 126/71 (89) 135/82 (99) 148/81 (103) 136/80 (98) Pulse Ox 94 93 93 93 O2 Delivery Room Air Room Air Room Air Room Air 07/25/18 07/25/18 07/25/18 07/25/18 13:30 13:45 14:00 14:52 Temp 97.4 97.4 Pulse 86 84 84 87 Resp 16 B/P (MAP) 138/75 (96) 129/72 (91) 129/73 (91) 129/73 (91) Pulse Ox 91 94 89 90 O2 Delivery Room Air Room Air Room Air Room Air Intake and Output 07/24/18 07/24/18 07/25/18 15:01 23:01 07:01 Intake Total 500 ml 250 ml Output Total 350 ml 550 ml 550 ml Balance -350 ml -50 ml -300 ml DARRYL PARKER MD Jul 25, 2018 17:30
[2018-07-25] MEDS: FUROSEMIDE 40 MG TABLET. PO SCH (17:43)
[2018-07-26] VITALS (8 sets, daily range): BP systolic 97–163; BP diastolic 64–98
[2018-07-26] MEDS: BENZONATATE 100 MG CAPSULE. PO PRN ×3 (02:22→21:10)
[2018-07-26 05:08] LABS: BASO % 1 % (0-3); EOS # 0.1 x10^3/uL (0.0-0.7); EOS % 2 % (0-3); HEMATOCRIT 28.2 % (39.0-53.0); LYMPH # 1.1 x10^3/uL (1.0-4.8); LYMPH % 29 % (24-48); MEAN CORPUSCULAR HEMOGLOBIN 28 pg (25-35); MEAN CORPUSCULAR HGB CONC 32 g/dL (31-37); MEAN CORPUSCULAR VOLUME 88 fL (79-100); MONO # 0.5 x10^3/uL (0.0-1.1); MONO % 13 % (0-9); NEUT % 55 % (31-73); PLATELET COUNT 401 x10^3/uL (140-400); RED BLOOD COUNT 3.22 x10^6/uL (4.30-5.70); RED CELL DISTRIBUTION WIDTH 14.3 % (11.5-14.5); WHITE BLOOD COUNT 3.7 x10^3/uL (4.0-11.0)
[2018-07-26 05:35] LABS: CALCIUM 8.8 mg/dL (8.5-10.1); CREATININE 4.9 mg/dL (0.7-1.3); GFR 14.5; MAGNESIUM 2.2 mg/dL (1.8-2.4); POTASSIUM 5.1 mmol/L (3.5-5.1)
--- NOTE | 2018-07-26 07:31 | NUR ---
Oxygen level 86-87% on room air, placed on 2L/NC, lung llanes decreased throughout, non-productive cough, HOB elevated, stated he just wants to sleep, bed alarm activated, call light within reach, side rails up x2
[2018-07-26] MEDS: SENNOSIDES/DOCUSATE 8.6/50MG TABLET. PO SCH ×2 (08:36→21:10)
[2018-07-26] MEDS: CARVEDILOL 3.125 MG TABLET. PO SCH ×2 (08:36→17:16)
[2018-07-26] MEDS: FUROSEMIDE 40 MG TABLET. PO SCH ×2 (08:36→14:06)
[2018-07-26] MEDS: ASPIRIN ENTERIC COATED 81 MG TABLET.DR. PO SCH (08:36)
[2018-07-26] MEDS: NITROGLYCERIN 0.2MG/HR PATCH. TD SCH (08:41)
[2018-07-26] MEDS: INSULIN LISPRO 300 UNITS/3 ML INSULN.PEN. SQ SCH ×3 (08:46→17:19)
--- NOTE | 2018-07-26 09:00 | PDOC ---
PULMONARY PROGRESS NOTES Subjective PT NOT MORE SOA Vitals Vital Signs Date Time Temp Pulse Resp B/P (MAP) Pulse Ox O2 Delivery O2 Flow Rate FiO2 07/26/18 08:49 90 163/98 (119) 07/26/18 07:34 Nasal Cannula 2.0 07/26/18 07:00 98.1 20 89 98.1 General: Alert, No acute distress Lungs: Clear, Other (decrease bases) Cardiovascular: S1 Abdomen: Soft Neuro Exam: Alert Extremities: Other (1+edema) Labs Laboratory Tests Test 07/24/18 11:58 07/24/18 17:04 07/24/18 21:11 07/25/18 02:55 Glucose (Fingerstick) 232 mg/dL (70-99) 218 mg/dL (70-99) 141 mg/dL (70-99) Sodium Level 137 mmol/L (136-145) Potassium Level 4.7 mmol/L (3.5-5.1) Chloride Level 104 mmol/L (98-107) Carbon Dioxide Level 22 mmol/L (21-32) Anion Gap 11 (6-14) Blood Urea Nitrogen 63 mg/dL (8-26) Creatinine 4.8 mg/dL (0.7-1.3) Estimated GFR (Cockcroft-Gault) 14.8 Glucose Level 141 mg/dL (70-99) Calcium Level 8.8 mg/dL (8.5-10.1) Test 07/25/18 07:40 07/25/18 11:35 07/25/18 16:46 07/25/18 21:14 Glucose (Fingerstick) 116 mg/dL (70-99) 240 mg/dL (70-99) 220 mg/dL (70-99) 296 mg/dL (70-99) Test 07/26/18 03:50 07/26/18 07:19 White Blood Count 3.7 x10^3/uL (4.0-11.0) Red Blood Count 3.22 x10^6/uL (4.30-5.70) Hemoglobin 9.0 g/dL (13.0-17.5) Hematocrit 28.2 % (39.0-53.0) Mean Corpuscular Volume 88 fL (79-100) Mean Corpuscular Hemoglobin 28 pg (25-35) Mean Corpuscular Hemoglobin Concent 32 g/dL (31-37) Red Cell Distribution Width 14.3 % (11.5-14.5) Platelet Count 401 x10^3/uL (140-400) Neutrophils (%) (Auto) 55 % (31-73) Lymphocytes (%) (Auto) 29 % (24-48) Monocytes (%) (Auto) 13 % (0-9) Eosinophils (%) (Auto) 2 % (0-3) Basophils (%) (Auto) 1 % (0-3) Neutrophils # (Auto) 2.0 x10^3uL (1.8-7.7) Lymphocytes # (Auto) 1.1 x10^3/uL (1.0-4.8) Monocytes # (Auto) 0.5 x10^3/uL (0.0-1.1) Eosinophils # (Auto) 0.1 x10^3/uL (0.0-0.7) Basophils # (Auto) 0.0 x10^3/uL (0.0-0.2) Sodium Level 140 mmol/L (136-145) Potassium Level 5.1 mmol/L (3.5-5.1) Chloride Level 105 mmol/L (98-107) Carbon Dioxide Level 25 mmol/L (21-32) Anion Gap 10 (6-14) Blood Urea Nitrogen 67 mg/dL (8-26) Creatinine 4.9 mg/dL (0.7-1.3) Estimated GFR (Cockcroft-Gault) 14.5 Glucose Level 283 mg/dL (70-99) Calcium Level 8.8 mg/dL (8.5-10.1) Magnesium Level 2.2 mg/dL (1.8-2.4) Glucose (Fingerstick) 247 mg/dL (70-99) Laboratory Tests Test 07/25/18 11:35 07/25/18 16:46 07/25/18 21:14 07/26/18 03:50 Glucose (Fingerstick) 240 mg/dL (70-99) 220 mg/dL (70-99) 296 mg/dL (70-99) White Blood Count 3.7 x10^3/uL (4.0-11.0) Red Blood Count 3.22 x10^6/uL (4.30-5.70) Hemoglobin 9.0 g/dL (13.0-17.5) Hematocrit 28.2 % (39.0-53.0) Mean Corpuscular Volume 88 fL (79-100) Mean Corpuscular Hemoglobin 28 pg (25-35) Mean Corpuscular Hemoglobin Concent 32 g/dL (31-37) Red Cell Distribution Width 14.3 % (11.5-14.5) Platelet Count 401 x10^3/uL (140-400) Neutrophils (%) (Auto) 55 % (31-73) Lymphocytes (%) (Auto) 29 % (24-48) Monocytes (%) (Auto) 13 % (0-9) Eosinophils (%) (Auto) 2 % (0-3) Basophils (%) (Auto) 1 % (0-3) Neutrophils # (Auto) 2.0 x10^3uL (1.8-7.7) Lymphocytes # (Auto) 1.1 x10^3/uL (1.0-4.8) Monocytes # (Auto) 0.5 x10^3/uL (0.0-1.1) Eosinophils # (Auto) 0.1 x10^3/uL (0.0-0.7) Basophils # (Auto) 0.0 x10^3/uL (0.0-0.2) Sodium Level 140 mmol/L (136-145) Potassium Level 5.1 mmol/L (3.5-5.1) Chloride Level 105 mmol/L (98-107) Carbon Dioxide Level 25 mmol/L (21-32) Anion Gap 10 (6-14) Blood Urea Nitrogen 67 mg/dL (8-26) Creatinine 4.9 mg/dL (0.7-1.3) Estimated GFR (Cockcroft-Gault) 14.5 Glucose Level 283 mg/dL (70-99) Calcium Level 8.8 mg/dL (8.5-10.1) Magnesium Level 2.2 mg/dL (1.8-2.4) Test 07/26/18 07:19 Glucose (Fingerstick) 247 mg/dL (70-99) Medications Active Scripts Medications Dose Route/Sig Max Daily Dose Days Date Category Glipizide 5 Mg Tablet 1 Tab PO BID 07/22/18 Reported Lisinopril 2.5 Mg Tablet Unknown Dose PO DAILY 07/22/[address] CHEST Impression: Moderate to large bilateral pleural effusions with scattered bibasilar atelectasis and right lower lobe atelectasis. Impression . 1. Dyspnea secondary to bilateral interstitial edema, likely acute systolic heart failure 2. Renal failure ?acute on chronic. 3. No significant history of tobacco use. 4. Abnormal chest x-ray with bilateral interstitial infiltrates and bibasilar airspace opacities. Likely congestive heart failure, CT chest c/w moderate to large effusions 5. Moderate protein-calorie malnutrition. 6. Abnormal liver function test could be related to hypoperfusion. 7. CMP (EF35%) Plan . THORACENTESIS REMOVED 1.5 LITERS OK TO D/C FROM MY STANDPOINT FOLLOW UP WITH PCP D/W MISTY JAMES MD Jul 26, 2018 09:00
--- NOTE | 2018-07-26 09:46 | NUR ---
Vital signs and rounds charted on wrong pt.
--- NOTE | 2018-07-26 12:56 | NUR ---
Afternoon sliding scale insulin held, no calories consumed states food was too salty, cottage cheese & fruit ordered
--- NOTE | 2018-07-26 13:22 | NUR ---
SS following up with discharge planning. Pt is self pay and does not qualify for rehabilitation services with the [facility] at this time. SS will continue to follow for discharge needs.
--- NOTE | 2018-07-26 14:07 | PDOC ---
Renal-Progress Notes Subjective Notes Notes LESS SOB History of Present Illness Hx of present illness BETTER Vitals Vitals Vital Signs Date Time Temp Pulse Resp B/P (MAP) Pulse Ox O2 Delivery O2 Flow Rate FiO2 07/26/18 13:50 81 Room Air 07/26/18 11:00 98.2 87 20 138/85 (102) 2.0 98.2 Weight Weight [ ] I.O. Intake and Output Intake and Output 07/26/18 06:59 Intake Total 1200 ml Output Total 2500 ml Balance -1300 ml Intake Oral 600 ml Tube Feeding 600 ml Output Urine Total 1200 ml Chest Tube Drainage Total 1300 ml Labs Labs Laboratory Tests Test 07/25/18 16:46 07/25/18 21:14 07/26/18 03:50 07/26/18 07:19 Glucose (Fingerstick) 220 mg/dL (70-99) 296 mg/dL (70-99) 247 mg/dL (70-99) White Blood Count 3.7 x10^3/uL (4.0-11.0) Red Blood Count 3.22 x10^6/uL (4.30-5.70) Hemoglobin 9.0 g/dL (13.0-17.5) Hematocrit 28.2 % (39.0-53.0) Mean Corpuscular Volume 88 fL (79-100) Mean Corpuscular Hemoglobin 28 pg (25-35) Mean Corpuscular Hemoglobin Concent 32 g/dL (31-37) Red Cell Distribution Width 14.3 % (11.5-14.5) Platelet Count 401 x10^3/uL (140-400) Neutrophils (%) (Auto) 55 % (31-73) Lymphocytes (%) (Auto) 29 % (24-48) Monocytes (%) (Auto) 13 % (0-9) Eosinophils (%) (Auto) 2 % (0-3) Basophils (%) (Auto) 1 % (0-3) Neutrophils # (Auto) 2.0 x10^3uL (1.8-7.7) Lymphocytes # (Auto) 1.1 x10^3/uL (1.0-4.8) Monocytes # (Auto) 0.5 x10^3/uL (0.0-1.1) Eosinophils # (Auto) 0.1 x10^3/uL (0.0-0.7) Basophils # (Auto) 0.0 x10^3/uL (0.0-0.2) Sodium Level 140 mmol/L (136-145) Potassium Level 5.1 mmol/L (3.5-5.1) Chloride Level 105 mmol/L (98-107) Carbon Dioxide Level 25 mmol/L (21-32) Anion Gap 10 (6-14) Blood Urea Nitrogen 67 mg/dL (8-26) Creatinine 4.9 mg/dL (0.7-1.3) Estimated GFR (Cockcroft-Gault) 14.5 Glucose Level 283 mg/dL (70-99) Calcium Level 8.8 mg/dL (8.5-10.1) Magnesium Level 2.2 mg/dL (1.8-2.4) Test 07/26/18 11:24 Glucose (Fingerstick) 185 mg/dL (70-99) Micro Micro Microbiology 07/22/18 Blood Culture - Preliminary, Resulted NO GROWTH AFTER 4 DAYS Review of Systems Constitutional: yes: weakness, alert, oriented Ears/Nose/Throat: Yes: no symptom reported Eyes: Yes: no symptom reported Pulmonary: Yes dyspnea Cardiovascular: Yes no symptom reported Gastrointestional: Yes: no symptom reported Genitourinary: Yes: no symptom reported Musculoskeletal: Yes: no symptom reported Skin: Yes no symptom reported Psychiatric/Neurological: Yes: pre-existing deficit Endocrine: Yes: no symptom reported Physical Exam General Appearance: no apparent distress, afebrile Skin: warm Respiratory: decreased breath sounds Heart: S1S2 Abdomen: soft, bowel sounds present Genitourinary: bladder flat Extremities: pulses present Neurology: alert, oriented Assessment Assessment IMP CKD STAGE 4-CR STABLE AT 4.8 ANEMIA DM II HTN SYSTOLIC CHF PL EFFUSION PLAN DIURESIS-DECREASE LASIX TO ONE A DAY OP F/U ONCE DISCHARGED WILL FOLLOW [facility] MD Jul 26, 2018 14:07
--- NOTE | 2018-07-26 14:11 | PDOC ---
PROGRESS NOTES Chief Complaint Chief Complaint Pulmonary edema Pleural Effusion Dyspnea Elevated troponin asymptomatic Chronic kidney disease stage IIIb most likely Congestive heart failure which may be a combined dysfunction. No recorded ejection fraction in our institution Hypertension Diabetes mellitus type 2 Normocytic anemia of chronic inflammation History of Present Illness History of Present Illness Pt is a 68 y/o male who was admitted with CHF exacerbation and renal failure. Today the pt is awake, laying in bed and in NAD. He was seen and examined. He has no new complaints today. I discussed the pt with his RN. Vitals Vitals Vital Signs Date Time Temp Pulse Resp B/P (MAP) Pulse Ox O2 Delivery O2 Flow Rate FiO2 07/26/18 13:50 81 Room Air 07/26/18 11:00 98.2 87 20 138/85 (102) 2.0 98.2 Physical Exam General: Alert, No acute distress Heart: Regular rate, No murmurs Lungs: Clear, Other (no wheezing or crackles) Abdomen: Normal bowel sounds, No tenderness Extremities: No clubbing, No cyanosis, Other (Bilateral LE edema ) Skin: No rashes Labs LABS Laboratory Tests Test 07/25/18 16:46 07/25/18 21:14 07/26/18 03:50 07/26/18 07:19 Glucose (Fingerstick) 220 mg/dL (70-99) 296 mg/dL (70-99) 247 mg/dL (70-99) White Blood Count 3.7 x10^3/uL (4.0-11.0) Red Blood Count 3.22 x10^6/uL (4.30-5.70) Hemoglobin 9.0 g/dL (13.0-17.5) Hematocrit 28.2 % (39.0-53.0) Mean Corpuscular Volume 88 fL (79-100) Mean Corpuscular Hemoglobin 28 pg (25-35) Mean Corpuscular Hemoglobin Concent 32 g/dL (31-37) Red Cell Distribution Width 14.3 % (11.5-14.5) Platelet Count 401 x10^3/uL (140-400) Neutrophils (%) (Auto) 55 % (31-73) Lymphocytes (%) (Auto) 29 % (24-48) Monocytes (%) (Auto) 13 % (0-9) Eosinophils (%) (Auto) 2 % (0-3) Basophils (%) (Auto) 1 % (0-3) Neutrophils # (Auto) 2.0 x10^3uL (1.8-7.7) Lymphocytes # (Auto) 1.1 x10^3/uL (1.0-4.8) Monocytes # (Auto) 0.5 x10^3/uL (0.0-1.1) Eosinophils # (Auto) 0.1 x10^3/uL (0.0-0.7) Basophils # (Auto) 0.0 x10^3/uL (0.0-0.2) Sodium Level 140 mmol/L (136-145) Potassium Level 5.1 mmol/L (3.5-5.1) Chloride Level 105 mmol/L (98-107) Carbon Dioxide Level 25 mmol/L (21-32) Anion Gap 10 (6-14) Blood Urea Nitrogen 67 mg/dL (8-26) Creatinine 4.9 mg/dL (0.7-1.3) Estimated GFR (Cockcroft-Gault) 14.5 Glucose Level 283 mg/dL (70-99) Calcium Level 8.8 mg/dL (8.5-10.1) Magnesium Level 2.2 mg/dL (1.8-2.4) Test 07/26/18 11:24 Glucose (Fingerstick) 185 mg/dL (70-99) Review of Systems Review of Systems Gen: denies fever or chills HEENT: denies cold symptoms Heart: denies CP, palp Lung: less SOA, denies cough Abd: denies pain, diarrhea. Assessment and Plan Assessmemt and Plan Assessment: S/p right thoracentesis CHF exacerbation Chronic kidney disease Dyspnea Elevated troponin asymptomatic Hypertension Diabetes mellitus type 2 Normocytic anemia of chronic inflammation Plan: IV lasix once per day, considering dialysis - follow nephrology recommendation Cardiac monitoring Wound care Lab - following lytes PT/OT Home meds Appreciate subspecialist input Comment Review of Relevant I have reviewed the following items chayo (where applicable) has been applied. Labs Laboratory Tests Test 07/24/18 17:04 07/24/18 21:11 07/25/18 02:55 07/25/18 07:40 Glucose (Fingerstick) 218 mg/dL (70-99) 141 mg/dL (70-99) 116 mg/dL (70-99) Sodium Level 137 mmol/L (136-145) Potassium Level 4.7 mmol/L (3.5-5.1) Chloride Level 104 mmol/L (98-107) Carbon Dioxide Level 22 mmol/L (21-32) Anion Gap 11 (6-14) Blood Urea Nitrogen 63 mg/dL (8-26) Creatinine 4.8 mg/dL (0.7-1.3) Estimated GFR (Cockcroft-Gault) 14.8 Glucose Level 141 mg/dL (70-99) Calcium Level 8.8 mg/dL (8.5-10.1) Test 07/25/18 11:35 07/25/18 16:46 07/25/18 21:14 07/26/18 03:50 Glucose (Fingerstick) 240 mg/dL (70-99) 220 mg/dL (70-99) 296 mg/dL (70-99) White Blood Count 3.7 x10^3/uL (4.0-11.0) Red Blood Count 3.22 x10^6/uL (4.30-5.70) Hemoglobin 9.0 g/dL (13.0-17.5) Hematocrit 28.2 % (39.0-53.0) Mean Corpuscular Volume 88 fL (79-100) Mean Corpuscular Hemoglobin 28 pg (25-35) Mean Corpuscular Hemoglobin Concent 32 g/dL (31-37) Red Cell Distribution Width 14.3 % (11.5-14.5) Platelet Count 401 x10^3/uL (140-400) Neutrophils (%) (Auto) 55 % (31-73) Lymphocytes (%) (Auto) 29 % (24-48) Monocytes (%) (Auto) 13 % (0-9) Eosinophils (%) (Auto) 2 % (0-3) Basophils (%) (Auto) 1 % (0-3) Neutrophils # (Auto) 2.0 x10^3uL (1.8-7.7) Lymphocytes # (Auto) 1.1 x10^3/uL (1.0-4.8) Monocytes # (Auto) 0.5 x10^3/uL (0.0-1.1) Eosinophils # (Auto) 0.1 x10^3/uL (0.0-0.7) Basophils # (Auto) 0.0 x10^3/uL (0.0-0.2) Sodium Level 140 mmol/L (136-145) Potassium Level 5.1 mmol/L (3.5-5.1) Chloride Level 105 mmol/L (98-107) Carbon Dioxide Level 25 mmol/L (21-32) Anion Gap 10 (6-14) Blood Urea Nitrogen 67 mg/dL (8-26) Creatinine 4.9 mg/dL (0.7-1.3) Estimated GFR (Cockcroft-Gault) 14.5 Glucose Level 283 mg/dL (70-99) Calcium Level 8.8 mg/dL (8.5-10.1) Magnesium Level 2.2 mg/dL (1.8-2.4) Test 07/26/18 07:19 07/26/18 11:24 Glucose (Fingerstick) 247 mg/dL (70-99) 185 mg/dL (70-99) Laboratory Tests Test 07/25/18 16:46 07/25/18 21:14 07/26/18 03:50 07/26/18 07:19 Glucose (Fingerstick) 220 mg/dL (70-99) 296 mg/dL (70-99) 247 mg/dL (70-99) White Blood Count 3.7 x10^3/uL (4.0-11.0) Red Blood Count 3.22 x10^6/uL (4.30-5.70) Hemoglobin 9.0 g/dL (13.0-17.5) Hematocrit 28.2 % (39.0-53.0) Mean Corpuscular Volume 88 fL (79-100) Mean Corpuscular Hemoglobin 28 pg (25-35) Mean Corpuscular Hemoglobin Concent 32 g/dL (31-37) Red Cell Distribution Width 14.3 % (11.5-14.5) Platelet Count 401 x10^3/uL (140-400) Neutrophils (%) (Auto) 55 % (31-73) Lymphocytes (%) (Auto) 29 % (24-48) Monocytes (%) (Auto) 13 % (0-9) Eosinophils (%) (Auto) 2 % (0-3) Basophils (%) (Auto) 1 % (0-3) Neutrophils # (Auto) 2.0 x10^3uL (1.8-7.7) Lymphocytes # (Auto) 1.1 x10^3/uL (1.0-4.8) Monocytes # (Auto) 0.5 x10^3/uL (0.0-1.1) Eosinophils # (Auto) 0.1 x10^3/uL (0.0-0.7) Basophils # (Auto) 0.0 x10^3/uL (0.0-0.2) Sodium Level 140 mmol/L (136-145) Potassium Level 5.1 mmol/L (3.5-5.1) Chloride Level 105 mmol/L (98-107) Carbon Dioxide Level 25 mmol/L (21-32) Anion Gap 10 (6-14) Blood Urea Nitrogen 67 mg/dL (8-26) Creatinine 4.9 mg/dL (0.7-1.3) Estimated GFR (Cockcroft-Gault) 14.5 Glucose Level 283 mg/dL (70-99) Calcium Level 8.8 mg/dL (8.5-10.1) Magnesium Level 2.2 mg/dL (1.8-2.4) Test 07/26/18 11:24 Glucose (Fingerstick) 185 mg/dL (70-99) Microbiology 07/22/18 Blood Culture - Preliminary, Resulted NO GROWTH AFTER 4 DAYS Medications Current Medications Albuterol Sulfate (Ventolin Neb Soln) 2.5 mg 1X ONCE NEB Last administered on 07/22/18at 09:05; Start 07/22/18 at 08:30; Stop 07/22/18 at 09:07; Status DC Sodium Chloride 1,000 ml @ 1,000 mls/hr 1X ONCE IV Last administered on at 10:20; Start 07/22/18 at 10:15; Stop 07/22/18 at 11:14; Status DC Sodium Polystyrene Sulfonate (Kayexalate) 15 gm 1X ONCE PO Last administered on 07/22/18at 10:20; Start 07/22/18 at 10:15; Stop 07/22/18 at 10:16; Status DC Lisinopril (Prinivil) 20 mg DAILY PO Last administered on 07/23/18at 07:51; Start 07/22/18 at 14:00; Stop 07/23/18 at 15:26; Status DC Nitroglycerin (Nitro-Dur) 1 patch DAILY TD Last administered on 07/26/18 08:41 ; Start 07/22/18 at 14:00 Furosemide (Lasix) 40 mg BID92 IV Last administered on 07/23/18 14:33; Start at 14:00; Stop 07/23/18 at 15:21; Status DC Spironolactone (Aldactone) 25 mg DAILY PO Last administered on 07/23/18at 07:51; Start 07/22/18 at 14:00; Stop 07/23/18 at 15:26; Status DC Heparin Sodium (Porcine) (Heparin Sodium) 5,000 unit Q12HR SQ Last administered on 07/23/18 21:14; Start 07/22/18 at 14:00; Stop 07/24/18 at 10:35; Status DC Sodium Chloride (Normal Saline Flush) 3 ml QSHIFT PRN IV AFTER MEDS AND BLOOD DRAWS; Start 07/22/18 at 13:00 Ondansetron HCl (Zofran) 4 mg PRN Q6HRS PRN IV NAUSEA/VOMITING; Start 07/22/18 at 13:00; Stop 07/23/18 at 16:58; Status DC Zolpidem Tartrate (Ambien) 5 mg PRN QHS PRN PO INSOMNIA, MAY REPEAT IN 1HR; Start 07/22/18 at 13:00 Info (Non-Icu Electrolyte Protocol) 1 ea PRN DAILY PRN MC SEE COMMENTS; Start 07/22/18 at 13:00 Acetaminophen/ Hydrocodone Bitart (Lortab 5/325) 1 tab PRN Q4HRS PRN PO MILD PAIN; Start 07/22/18 at 13:00 Acetaminophen (Tylenol) 650 mg PRN Q6HRS PRN PO Headaches, Temp > 101.5F Last administered on 07/23/18at 10:30; Start 07/22/18 at 13:00 Senna/Docusate Sodium (Senna Plus) 1 tab BID PO Last administered on 07/26/18at 08:36; Start 07/22/18 at 21:00 Lactulose (Lactulose) 20 gm PRN Q12HR PRN PO CONSTIPATION; Start 07/22/18 at 13: 00 Insulin Human Lispro (HumaLOG) 0-5 UNITS TIDWMEALS SQ Last administered on 07/26 08:46; Start 07/22/18 at 17:00 Dextrose (Dextrose 50%-Water Syringe) 12.5 gm PRN Q15MIN PRN IV SEE COMMENTS; Start 07/22/18 at 16:45 Aspirin (Huseyin Aspirin) 325 mg 1X ONCE PO Last administered on 07/22/18 17:18 ; Start 07/22/18 at 17:15; Stop 07/22/18 at 17:16; Status DC Aspirin (Ecotrin) 81 mg [id number] PO Last administered on 07/26/18 08:36; Start 07/23/18 at 08:00 Carvedilol (Coreg) 3.125 mg BIDWMEALS PO Last administered on 07/26/18 08:36; Start 07/22/18 at 17:30 Benzonatate (Tessalon Perle) 100 mg PRN Q6HRS PRN PO COUGH Last administered on 07/26/18 08:48; Start 07/22/18 at 21:00 Guaifenesin/ Codeine Phosphate (Robitussin Ac) 5 ml PRN Q6HRS PRN PO COUGH, 1ST CHOICE Last administered on 07/23/18 22:31; Start 07/22/18 at 23:00; Stop 04/01 at 00:36; Status DC Furosemide (Lasix) 40 mg DAILY IV Last administered on 07/25/18 09:12; Start 07/24/18 at 09:00; Stop 07/25/18 at 15:03; Status DC Throat Lozenges (Cepacol Sore Throat Lozenge) 1 aissatou PRN Q2HRS PRN PO SORE THROAT Last administered on 07/23/18 22:31; Start 07/23/18 at 17:00 Ondansetron HCl (Zofran) 4 mg PRN Q6HRS PRN IV NAUSEA/VOMITING Last administered on 07/24/18 08:15; Start 07/23/18 at 17:00 Furosemide (Lasix) 40 mg BID92 PO Last administered on 07/26/18 08:36; Start 07/25/18 at 15:00 Active Scripts Active Reported Glipizide 5 Mg Tablet 1 Tab PO BID Lisinopril 2.5 Mg Tablet Unknown Dose PO DAILY Vitals/I & O Vital Sign - Last 24 Hours 07/25/18 07/25/18 07/25/18 07/25/18 14:52 17:42 19:20 19:50 Temp 97.4 98.1 97.4 98.1 Pulse 87 95 87 Resp 16 18 B/P (MAP) 129/73 (91) 129/73 121/70 (87) Pulse Ox 90 87 O2 Delivery Room Air Room Air Room Air 07/25/18 07/26/18 07/26/18 07/26/18 23:20 03:05 07:00 07:34 Temp 98.0 98.2 98.1 98.0 98.2 98.1 Pulse 89 84 88 Resp 17 17 20 B/P (MAP) 140/85 (103) 139/76 (97) 157/94 (115) Pulse Ox 89 94 89 O2 Delivery Room Air Room Air Room Air Nasal Cannula O2 Flow Rate 2.0 07/26/18 07/26/18 07/26/18 07/26/18 08:36 08:49 09:44 11:00 Temp 98.2 98.2 Pulse 90 90 65 87 Resp 20 B/P (MAP) 163/98 163/98 (119) 97/64 (75) 138/85 (102) Pulse Ox 94 O2 Delivery Nasal Cannula O2 Flow Rate 2.0 07/26/18 07/26/18 11:03 13:50 Pulse Ox 87 81 O2 Delivery Room Air Room Air Intake and Output 07/25/18 07/25/18 07/26/18 15:00 23:00 07:00 Intake Total 600 ml 600 ml Output Total 1800 ml 200 ml 500 ml Balance -1800 ml 400 ml 100 ml CASTLE,NIAL K III DO Jul 26, 2018 14:11
--- NOTE | 2018-07-26 15:25 | NUR ---
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
--- NOTE | 2018-07-26 16:21 | NUR ---
Orders written for 6 minute walk for oxygen usage verification, received prescription from Dr. Hannah for oxygen if needed for dismissal.
--- NOTE | 2018-07-26 16:24 | DS ---
DATE OF DISCHARGE: 07/26/2018 ADMISSION DIAGNOSES: Acute on chronic systolic and diastolic heart failure, pulmonary edema, elevated troponin, chronic kidney disease, hypertension, diabetes, normocytic anemia. DISCHARGE DIAGNOSES: Resolving heart failure, status post right thoracentesis; chronic kidney disease, this is his baseline, seems to be around 4.8; hypertension; diabetes. CONSULTS: Dr. Hannah, Dr. Osorio and Dr. Casillas. HOSPITAL COURSE: The patient is a pleasant elderly male who presented with an acute on chronic systolic and diastolic heart failure and he had effusion as well. He was admitted. The above consults were obtained. He did go for a thoracentesis yesterday. Echocardiogram showed an ejection fraction of 35%. His creatinine seems to be at or near his baseline at 4.80s. Clinically stable this morning when I saw and examined him. His heart tones were normal. His lungs were clear. Extremities had much less edema. We plan to discharge with close outpatient followup. DISPOSITION: Home. ACTIVITY: As tolerated. DIET: Low sodium. MEDICATIONS: Please see the MRAD. TOTAL TIME: 32 minutes. KAY CARROLL DO DR: MEG/elke JOB#: [id number] / [id number]
--- NOTE | 2018-07-26 16:51 | NUR ---
Paged Pulmo Function [phone] for 6 minute walk as ordered. Ambulated back from bathroom with SBA, gait unsteady, SOB with activity, will continue to observe.
--- NOTE | 2018-07-26 17:50 | NUR ---
Placed on room air for approximately 20 minutes, sat level 87% on room air at rest, will notify , no 6 minute walk test done at this time per [facility] personnel suggestions to do room air sat and them know results for possible completion of test tomorrow if qualifies needs oxygen through [employer] possibly. Returned back to oxygen level of 2L/NC
--- NOTE | 2018-07-26 18:14 | NUR ---
Monique Thompson, Dr. Anaya consulting engineer, dismissal cancelled, oxygen level 87% on room air at rest, will complete studies tomorrow and arrange for home oxygen if needed for dismissal
[2018-07-27 03:02] VITALS: BP 153/96
[2018-07-27 05:45] LABS: CALCIUM 9.3 mg/dL (8.5-10.1); CREATININE 4.4 mg/dL (0.7-1.3); GFR 16.4; POTASSIUM 4.7 mmol/L (3.5-5.1)
[2018-07-27 05:48] LABS: BASO # 0.1 x10^3/uL (0.0-0.2); BASO % 2 % (0-3); EOS # 0.1 x10^3/uL (0.0-0.7); EOS % 2 % (0-3); HEMATOCRIT 29.7 % (39.0-53.0); HEMOGLOBIN 9.4 g/dL (13.0-17.5); LYMPH # 1.1 x10^3/uL (1.0-4.8); LYMPH % 29 % (24-48); MEAN CORPUSCULAR HEMOGLOBIN 28 pg (25-35); MEAN CORPUSCULAR HGB CONC 32 g/dL (31-37); MEAN CORPUSCULAR VOLUME 87 fL (79-100); MONO # 0.4 x10^3/uL (0.0-1.1); MONO % 11 % (0-9); NEUT # 2.2 x10^3uL (1.8-7.7); NEUT % 56 % (31-73); PLATELET COUNT 414 x10^3/uL (140-400); RED BLOOD COUNT 3.42 x10^6/uL (4.30-5.70); RED CELL DISTRIBUTION WIDTH 14.6 % (11.5-14.5); WHITE BLOOD COUNT 3.9 x10^3/uL (4.0-11.0)
[2018-07-27 07:00] VITALS: BP 159/90
[2018-07-27] MEDS: INSULIN LISPRO 300 UNITS/3 ML INSULN.PEN. SQ SCH ×3 (08:00→17:00)
[2018-07-27] MEDS: SENNOSIDES/DOCUSATE 8.6/50MG TABLET. PO SCH (08:23)
[2018-07-27] MEDS: ASPIRIN ENTERIC COATED 81 MG TABLET.DR. PO SCH (08:23)
[2018-07-27] MEDS: CARVEDILOL 3.125 MG TABLET. PO SCH (08:24)
[2018-07-27] MEDS: NITROGLYCERIN 0.2MG/HR PATCH. TD SCH (08:27)
--- NOTE | 2018-07-27 08:56 | PDOC ---
PULMONARY PROGRESS NOTES Subjective PT NOT MORE SOA Vitals Vital Signs Date Time Temp Pulse Resp B/P (MAP) Pulse Ox O2 Delivery O2 Flow Rate FiO2 07/27/18 08:24 80 159/90 07/27/18 07:28 Nasal Cannula 2.0 07/27/18 07:00 98.1 20 94 98.1 General: Alert, No acute distress Lungs: Clear, Other (no wheezing or crackles) Cardiovascular: S1 Abdomen: Soft Neuro Exam: Alert Extremities: Other (1+edema) Labs Laboratory Tests Test 07/25/18 09:40 07/25/18 11:35 07/25/18 16:46 07/25/18 21:14 Body Fluid Total Protein 1.5 g/dL (.) Body Fluid Lactate Dehydrogenase 67 IU/L (.) Glucose (Fingerstick) 240 mg/dL (70-99) 220 mg/dL (70-99) 296 mg/dL (70-99) Test 07/26/18 03:50 07/26/18 07:19 07/26/18 11:24 07/26/18 17:13 White Blood Count 3.7 x10^3/uL (4.0-11.0) Red Blood Count 3.22 x10^6/uL (4.30-5.70) Hemoglobin 9.0 g/dL (13.0-17.5) Hematocrit 28.2 % (39.0-53.0) Mean Corpuscular Volume 88 fL (79-100) Mean Corpuscular Hemoglobin 28 pg (25-35) Mean Corpuscular Hemoglobin Concent 32 g/dL (31-37) Red Cell Distribution Width 14.3 % (11.5-14.5) Platelet Count 401 x10^3/uL (140-400) Neutrophils (%) (Auto) 55 % (31-73) Lymphocytes (%) (Auto) 29 % (24-48) Monocytes (%) (Auto) 13 % (0-9) Eosinophils (%) (Auto) 2 % (0-3) Basophils (%) (Auto) 1 % (0-3) Neutrophils # (Auto) 2.0 x10^3uL (1.8-7.7) Lymphocytes # (Auto) 1.1 x10^3/uL (1.0-4.8) Monocytes # (Auto) 0.5 x10^3/uL (0.0-1.1) Eosinophils # (Auto) 0.1 x10^3/uL (0.0-0.7) Basophils # (Auto) 0.0 x10^3/uL (0.0-0.2) Sodium Level 140 mmol/L (136-145) Potassium Level 5.1 mmol/L (3.5-5.1) Chloride Level 105 mmol/L (98-107) Carbon Dioxide Level 25 mmol/L (21-32) Anion Gap 10 (6-14) Blood Urea Nitrogen 67 mg/dL (8-26) Creatinine 4.9 mg/dL (0.7-1.3) Estimated GFR (Cockcroft-Gault) 14.5 Glucose Level 283 mg/dL (70-99) Calcium Level 8.8 mg/dL (8.5-10.1) Magnesium Level 2.2 mg/dL (1.8-2.4) Glucose (Fingerstick) 247 mg/dL (70-99) 185 mg/dL (70-99) 234 mg/dL (70-99) Test 07/26/18 21:13 07/27/18 03:55 07/27/18 07:53 Glucose (Fingerstick) 113 mg/dL (70-99) 85 mg/dL (70-99) White Blood Count 3.9 x10^3/uL (4.0-11.0) Red Blood Count 3.42 x10^6/uL (4.30-5.70) Hemoglobin 9.4 g/dL (13.0-17.5) Hematocrit 29.7 % (39.0-53.0) Mean Corpuscular Volume 87 fL (79-100) Mean Corpuscular Hemoglobin 28 pg (25-35) Mean Corpuscular Hemoglobin Concent 32 g/dL (31-37) Red Cell Distribution Width 14.6 % (11.5-14.5) Platelet Count 414 x10^3/uL (140-400) Neutrophils (%) (Auto) 56 % (31-73) Lymphocytes (%) (Auto) 29 % (24-48) Monocytes (%) (Auto) 11 % (0-9) Eosinophils (%) (Auto) 2 % (0-3) Basophils (%) (Auto) 2 % (0-3) Neutrophils # (Auto) 2.2 x10^3uL (1.8-7.7) Lymphocytes # (Auto) 1.1 x10^3/uL (1.0-4.8) Monocytes # (Auto) 0.4 x10^3/uL (0.0-1.1) Eosinophils # (Auto) 0.1 x10^3/uL (0.0-0.7) Basophils # (Auto) 0.1 x10^3/uL (0.0-0.2) Sodium Level 141 mmol/L (136-145) Potassium Level 4.7 mmol/L (3.5-5.1) Chloride Level 108 mmol/L (98-107) Carbon Dioxide Level 23 mmol/L (21-32) Anion Gap 10 (6-14) Blood Urea Nitrogen 64 mg/dL (8-26) Creatinine 4.4 mg/dL (0.7-1.3) Estimated GFR (Cockcroft-Gault) 16.4 Glucose Level 101 mg/dL (70-99) Calcium Level 9.3 mg/dL (8.5-10.1) Laboratory Tests Test 07/26/18 11:24 07/26/18 17:13 07/26/18 21:13 07/27/18 03:55 Glucose (Fingerstick) 185 mg/dL (70-99) 234 mg/dL (70-99) 113 mg/dL (70-99) White Blood Count 3.9 x10^3/uL (4.0-11.0) Red Blood Count 3.42 x10^6/uL (4.30-5.70) Hemoglobin 9.4 g/dL (13.0-17.5) Hematocrit 29.7 % (39.0-53.0) Mean Corpuscular Volume 87 fL (79-100) Mean Corpuscular Hemoglobin 28 pg (25-35) Mean Corpuscular Hemoglobin Concent 32 g/dL (31-37) Red Cell Distribution Width 14.6 % (11.5-14.5) Platelet Count 414 x10^3/uL (140-400) Neutrophils (%) (Auto) 56 % (31-73) Lymphocytes (%) (Auto) 29 % (24-48) Monocytes (%) (Auto) 11 % (0-9) Eosinophils (%) (Auto) 2 % (0-3) Basophils (%) (Auto) 2 % (0-3) Neutrophils # (Auto) 2.2 x10^3uL (1.8-7.7) Lymphocytes # (Auto) 1.1 x10^3/uL (1.0-4.8) Monocytes # (Auto) 0.4 x10^3/uL (0.0-1.1) Eosinophils # (Auto) 0.1 x10^3/uL (0.0-0.7) Basophils # (Auto) 0.1 x10^3/uL (0.0-0.2) Sodium Level 141 mmol/L (136-145) Potassium Level 4.7 mmol/L (3.5-5.1) Chloride Level 108 mmol/L (98-107) Carbon Dioxide Level 23 mmol/L (21-32) Anion Gap 10 (6-14) Blood Urea Nitrogen 64 mg/dL (8-26) Creatinine 4.4 mg/dL (0.7-1.3) Estimated GFR (Cockcroft-Gault) 16.4 Glucose Level 101 mg/dL (70-99) Calcium Level 9.3 mg/dL (8.5-10.1) Test 07/27/18 07:53 Glucose (Fingerstick) 85 mg/dL (70-99) Medications Active Scripts Medications Dose Route/Sig Max Daily Dose Days Date Category Glipizide 5 Mg Tablet 1 Tab PO BID 07/22/18 Reported Lisinopril 2.5 Mg Tablet Unknown Dose PO DAILY 07/22/[address] CHEST Impression: Moderate to large bilateral pleural effusions with scattered bibasilar atelectasis and right lower lobe atelectasis. Impression . 1. Dyspnea secondary to bilateral interstitial edema, likely acute systolic heart failure 2. Renal failure ?acute on chronic. 3. No significant history of tobacco use. 4. Abnormal chest x-ray with bilateral interstitial infiltrates and bibasilar airspace opacities. Likely congestive heart failure, CT chest c/w moderate to large effusions 5. Moderate protein-calorie malnutrition. 6. Abnormal liver function test could be related to hypoperfusion. 7. CMP (EF35%) Plan . THORACENTESIS REMOVED 1.5 LITERS OK TO D/C FROM MY STANDPOINT FOLLOW UP WITH PCP D/W MISTY JAMES MD Jul 27, 2018 08:56
[2018-07-27] MEDS ORDERED: FUROSEMIDE 40 MG TABLET. PO SCH (09:00)
--- NOTE | 2018-07-27 10:08 | PATHOLOGY ---
Note [facility] Accession Number: [id number] TESTS RESULT FLAG UNITS REF RANGE LAB Clinician Provided Cytology Information No. of containers..01 Other (Miscellaneous) Source: RIGHT PLEURAL FLUID DIAGNOSIS: 02 RIGHT PLEURAL FLUID NEGATIVE FOR MALIGNANT CELLS. MESOTHELIAL CELLS AND FEW INFLAMMATORY CELLS ARE PRESENT. THIS INTERPRETATION INCLUDES EVALUATION OF A CELL BLOCK. Signed out by: Germain Anderson MD, Pathologist NPI- [id number] Performed by: Efrain Song, Tool Chaser ([facility]) Gross description: 01 40 ML, YELLOW, CLEAR /LCS FLAG LEGEND: L-Low Normal,H-High Normal,LL-Alert Low,HH-Alert High <-Panic Low,>-Panic High,A-Abnormal,AA-Critical Abnormal Performed at: [address] [place] [address] Toñito Tafoya MD, [address] [facility] [address] [place] [address] Germain Anderson MD, Specimen Comment: A courtesy copy of this report has been sent to Specimen Comment: [phone]. Specimen Comment: Report sent to Performed at: [address], [place], [place] [id number] MD Toñito Tafoya MD Phone: [phone]
[2018-07-27 11:00] VITALS: BP 151/84
--- NOTE | 2018-07-27 11:56 | PDOC ---
Renal-Progress Notes Subjective Notes Notes NONE History of Present Illness Hx of present illness STABLE Vitals Vitals Vital Signs Date Time Temp Pulse Resp B/P (MAP) Pulse Ox O2 Delivery O2 Flow Rate FiO2 07/27/18 08:24 80 159/90 07/27/18 07:28 Nasal Cannula 2.0 07/27/18 07:00 98.1 20 94 98.1 Weight Weight [ ] I.O. Intake and Output Intake and Output 07/27/18 07:00 Intake Total 920 ml Output Total 175 ml Balance 745 ml Intake Oral 920 ml Output Urine Total 175 ml # Voids 3 # Bowel Movements 1 Labs Labs Laboratory Tests Test 07/26/18 17:13 07/26/18 21:13 07/27/18 03:55 07/27/18 07:53 Glucose (Fingerstick) 234 mg/dL (70-99) 113 mg/dL (70-99) 85 mg/dL (70-99) White Blood Count 3.9 x10^3/uL (4.0-11.0) Red Blood Count 3.42 x10^6/uL (4.30-5.70) Hemoglobin 9.4 g/dL (13.0-17.5) Hematocrit 29.7 % (39.0-53.0) Mean Corpuscular Volume 87 fL (79-100) Mean Corpuscular Hemoglobin 28 pg (25-35) Mean Corpuscular Hemoglobin Concent 32 g/dL (31-37) Red Cell Distribution Width 14.6 % (11.5-14.5) Platelet Count 414 x10^3/uL (140-400) Neutrophils (%) (Auto) 56 % (31-73) Lymphocytes (%) (Auto) 29 % (24-48) Monocytes (%) (Auto) 11 % (0-9) Eosinophils (%) (Auto) 2 % (0-3) Basophils (%) (Auto) 2 % (0-3) Neutrophils # (Auto) 2.2 x10^3uL (1.8-7.7) Lymphocytes # (Auto) 1.1 x10^3/uL (1.0-4.8) Monocytes # (Auto) 0.4 x10^3/uL (0.0-1.1) Eosinophils # (Auto) 0.1 x10^3/uL (0.0-0.7) Basophils # (Auto) 0.1 x10^3/uL (0.0-0.2) Sodium Level 141 mmol/L (136-145) Potassium Level 4.7 mmol/L (3.5-5.1) Chloride Level 108 mmol/L (98-107) Carbon Dioxide Level 23 mmol/L (21-32) Anion Gap 10 (6-14) Blood Urea Nitrogen 64 mg/dL (8-26) Creatinine 4.4 mg/dL (0.7-1.3) Estimated GFR (Cockcroft-Gault) 16.4 Glucose Level 101 mg/dL (70-99) Calcium Level 9.3 mg/dL (8.5-10.1) Test 07/27/18 11:29 Glucose (Fingerstick) 158 mg/dL (70-99) Micro Micro Microbiology 07/22/18 Blood Culture - Final, Complete NO GROWTH AFTER 5 DAYS 07/25/18 Anaerobic/Aerobic Culture, Resulted Pending 07/25/18 Anaerobic Culture Result 1 (ADORE), Resulted Pending 07/25/18 Aerobic Culture, Resulted Pending 07/25/18 Aerobic Culture Result 1 (ADORE), Resulted Pending 07/25/18 Gram Stain - Final, Resulted 07/25/18 Gram Stain Result 1 (ADORE) - Final, Resulted 07/25/18 Gram Stain Result 2 (ADORE) - Final, Resulted Review of Systems Constitutional: yes: weakness, alert, oriented Ears/Nose/Throat: Yes: no symptom reported Eyes: Yes: no symptom reported Pulmonary: Yes dyspnea Cardiovascular: Yes no symptom reported Gastrointestional: Yes: no symptom reported Genitourinary: Yes: no symptom reported Musculoskeletal: Yes: no symptom reported Skin: Yes no symptom reported Psychiatric/Neurological: Yes: pre-existing deficit Endocrine: Yes: no symptom reported Physical Exam General Appearance: no apparent distress, afebrile Skin: warm Respiratory: decreased breath sounds Heart: S1S2 Abdomen: soft, bowel sounds present Genitourinary: bladder flat Extremities: pulses present Neurology: alert, oriented Assessment Assessment IMP CKD STAGE 4-CR STABLE AT 4.4 ANEMIA DM II HTN SYSTOLIC CHF PL EFFUSION PLAN ON LASIX OP F/U ONCE DISCHARGED WILL FOLLOW [facility] MD Jul 27, 2018 11:56
--- NOTE | 2018-07-27 12:15 | NUR ---
Spoke with Dr Thompson and SS about patients discharge today. Dr Hannah states in his note that the patient is OK to discharge per his stand point. RT paged to do the 6 minute walk with the patient to evaluate for oxygen, Art in RT to come evaluate. He has been on room air for an hour and his sat has remained around 95%. Once that is completed, patient is okay to discharge per Dr Thompson.
[2018-07-27 13:02] VITALS: BP 99/71
--- NOTE | 2018-07-27 13:53 | PDOC ---
PROGRESS NOTES Chief Complaint Chief Complaint Pulmonary edema Pleural Effusion Dyspnea Elevated troponin asymptomatic Chronic kidney disease stage IIIb most likely Congestive heart failure which may be a combined dysfunction. No recorded ejection fraction in our institution Hypertension Diabetes mellitus type 2 Normocytic anemia of chronic inflammation History of Present Illness History of Present Illness Pt is a 68 y/o male who was admitted with CHF exacerbation and renal failure. Pt was seen and examined. Today he is alert, awake and sitting on the side of his bed. He has no new complaints. States he is still ready to go home but did not yesterday because his O2 sats dropped without his O2 NC. Discussed with his RN. He is currently 95% on RA and has been off his oxygen for a while. Will perform a 6 minute walk and work on D/C if results are okay. Vitals Vitals Vital Signs Date Time Temp Pulse Resp B/P (MAP) Pulse Ox O2 Delivery O2 Flow Rate FiO2 07/27/18 11:00 97.3 84 18 151/84 (106) 95 Room Air 97.3 07/27/18 07:28 2.0 Physical Exam General: Alert, No acute distress Heart: Regular rate, No murmurs Lungs: Clear, Other (no wheezing or crackles) Abdomen: Normal bowel sounds, No tenderness Extremities: No clubbing, No cyanosis, Other (Bilateral LE edema ) Skin: No rashes Labs LABS Laboratory Tests Test 07/26/18 17:13 07/26/18 21:13 07/27/18 03:55 07/27/18 07:53 Glucose (Fingerstick) 234 mg/dL (70-99) 113 mg/dL (70-99) 85 mg/dL (70-99) White Blood Count 3.9 x10^3/uL (4.0-11.0) Red Blood Count 3.42 x10^6/uL (4.30-5.70) Hemoglobin 9.4 g/dL (13.0-17.5) Hematocrit 29.7 % (39.0-53.0) Mean Corpuscular Volume 87 fL (79-100) Mean Corpuscular Hemoglobin 28 pg (25-35) Mean Corpuscular Hemoglobin Concent 32 g/dL (31-37) Red Cell Distribution Width 14.6 % (11.5-14.5) Platelet Count 414 x10^3/uL (140-400) Neutrophils (%) (Auto) 56 % (31-73) Lymphocytes (%) (Auto) 29 % (24-48) Monocytes (%) (Auto) 11 % (0-9) Eosinophils (%) (Auto) 2 % (0-3) Basophils (%) (Auto) 2 % (0-3) Neutrophils # (Auto) 2.2 x10^3uL (1.8-7.7) Lymphocytes # (Auto) 1.1 x10^3/uL (1.0-4.8) Monocytes # (Auto) 0.4 x10^3/uL (0.0-1.1) Eosinophils # (Auto) 0.1 x10^3/uL (0.0-0.7) Basophils # (Auto) 0.1 x10^3/uL (0.0-0.2) Sodium Level 141 mmol/L (136-145) Potassium Level 4.7 mmol/L (3.5-5.1) Chloride Level 108 mmol/L (98-107) Carbon Dioxide Level 23 mmol/L (21-32) Anion Gap 10 (6-14) Blood Urea Nitrogen 64 mg/dL (8-26) Creatinine 4.4 mg/dL (0.7-1.3) Estimated GFR (Cockcroft-Gault) 16.4 Glucose Level 101 mg/dL (70-99) Calcium Level 9.3 mg/dL (8.5-10.1) Test 07/27/18 11:29 Glucose (Fingerstick) 158 mg/dL (70-99) Review of Systems Review of Systems Gen: denies fever or chills HEENT: denies cold symptoms Heart: denies CP, palp Lung: less SOA, denies cough Abd: denies pain, diarrhea. Assessment and Plan Assessmemt and Plan Assessment: S/p right thoracentesis CHF exacerbation Chronic kidney disease Dyspnea Elevated troponin asymptomatic Hypertension Diabetes mellitus type 2 Normocytic anemia of chronic inflammation Plan: IV lasix once per day - follow nephrology recommendation Cardiac monitoring Wound care Lab - following lytes PT/OT Home meds Appreciate subspecialist input Possible D/C today if he passes 6 minute walk study Comment Review of Relevant I have reviewed the following items chayo (where applicable) has been applied. Labs Laboratory Tests Test 07/25/18 16:46 07/25/18 21:14 07/26/18 03:50 07/26/18 07:19 Glucose (Fingerstick) 220 mg/dL (70-99) 296 mg/dL (70-99) 247 mg/dL (70-99) White Blood Count 3.7 x10^3/uL (4.0-11.0) Red Blood Count 3.22 x10^6/uL (4.30-5.70) Hemoglobin 9.0 g/dL (13.0-17.5) Hematocrit 28.2 % (39.0-53.0) Mean Corpuscular Volume 88 fL (79-100) Mean Corpuscular Hemoglobin 28 pg (25-35) Mean Corpuscular Hemoglobin Concent 32 g/dL (31-37) Red Cell Distribution Width 14.3 % (11.5-14.5) Platelet Count 401 x10^3/uL (140-400) Neutrophils (%) (Auto) 55 % (31-73) Lymphocytes (%) (Auto) 29 % (24-48) Monocytes (%) (Auto) 13 % (0-9) Eosinophils (%) (Auto) 2 % (0-3) Basophils (%) (Auto) 1 % (0-3) Neutrophils # (Auto) 2.0 x10^3uL (1.8-7.7) Lymphocytes # (Auto) 1.1 x10^3/uL (1.0-4.8) Monocytes # (Auto) 0.5 x10^3/uL (0.0-1.1) Eosinophils # (Auto) 0.1 x10^3/uL (0.0-0.7) Basophils # (Auto) 0.0 x10^3/uL (0.0-0.2) Sodium Level 140 mmol/L (136-145) Potassium Level 5.1 mmol/L (3.5-5.1) Chloride Level 105 mmol/L (98-107) Carbon Dioxide Level 25 mmol/L (21-32) Anion Gap 10 (6-14) Blood Urea Nitrogen 67 mg/dL (8-26) Creatinine 4.9 mg/dL (0.7-1.3) Estimated GFR (Cockcroft-Gault) 14.5 Glucose Level 283 mg/dL (70-99) Calcium Level 8.8 mg/dL (8.5-10.1) Magnesium Level 2.2 mg/dL (1.8-2.4) Test 07/26/18 11:24 07/26/18 17:13 07/26/18 21:13 07/27/18 03:55 Glucose (Fingerstick) 185 mg/dL (70-99) 234 mg/dL (70-99) 113 mg/dL (70-99) White Blood Count 3.9 x10^3/uL (4.0-11.0) Red Blood Count 3.42 x10^6/uL (4.30-5.70) Hemoglobin 9.4 g/dL (13.0-17.5) Hematocrit 29.7 % (39.0-53.0) Mean Corpuscular Volume 87 fL (79-100) Mean Corpuscular Hemoglobin 28 pg (25-35) Mean Corpuscular Hemoglobin Concent 32 g/dL (31-37) Red Cell Distribution Width 14.6 % (11.5-14.5) Platelet Count 414 x10^3/uL (140-400) Neutrophils (%) (Auto) 56 % (31-73) Lymphocytes (%) (Auto) 29 % (24-48) Monocytes (%) (Auto) 11 % (0-9) Eosinophils (%) (Auto) 2 % (0-3) Basophils (%) (Auto) 2 % (0-3) Neutrophils # (Auto) 2.2 x10^3uL (1.8-7.7) Lymphocytes # (Auto) 1.1 x10^3/uL (1.0-4.8) Monocytes # (Auto) 0.4 x10^3/uL (0.0-1.1) Eosinophils # (Auto) 0.1 x10^3/uL (0.0-0.7) Basophils # (Auto) 0.1 x10^3/uL (0.0-0.2) Sodium Level 141 mmol/L (136-145) Potassium Level 4.7 mmol/L (3.5-5.1) Chloride Level 108 mmol/L (98-107) Carbon Dioxide Level 23 mmol/L (21-32) Anion Gap 10 (6-14) Blood Urea Nitrogen 64 mg/dL (8-26) Creatinine 4.4 mg/dL (0.7-1.3) Estimated GFR (Cockcroft-Gault) 16.4 Glucose Level 101 mg/dL (70-99) Calcium Level 9.3 mg/dL (8.5-10.1) Test 07/27/18 07:53 07/27/18 11:29 Glucose (Fingerstick) 85 mg/dL (70-99) 158 mg/dL (70-99) Laboratory Tests Test 07/26/18 17:13 07/26/18 21:13 07/27/18 03:55 07/27/18 07:53 Glucose (Fingerstick) 234 mg/dL (70-99) 113 mg/dL (70-99) 85 mg/dL (70-99) White Blood Count 3.9 x10^3/uL (4.0-11.0) Red Blood Count 3.42 x10^6/uL (4.30-5.70) Hemoglobin 9.4 g/dL (13.0-17.5) Hematocrit 29.7 % (39.0-53.0) Mean Corpuscular Volume 87 fL (79-100) Mean Corpuscular Hemoglobin 28 pg (25-35) Mean Corpuscular Hemoglobin Concent 32 g/dL (31-37) Red Cell Distribution Width 14.6 % (11.5-14.5) Platelet Count 414 x10^3/uL (140-400) Neutrophils (%) (Auto) 56 % (31-73) Lymphocytes (%) (Auto) 29 % (24-48) Monocytes (%) (Auto) 11 % (0-9) Eosinophils (%) (Auto) 2 % (0-3) Basophils (%) (Auto) 2 % (0-3) Neutrophils # (Auto) 2.2 x10^3uL (1.8-7.7) Lymphocytes # (Auto) 1.1 x10^3/uL (1.0-4.8) Monocytes # (Auto) 0.4 x10^3/uL (0.0-1.1) Eosinophils # (Auto) 0.1 x10^3/uL (0.0-0.7) Basophils # (Auto) 0.1 x10^3/uL (0.0-0.2) Sodium Level 141 mmol/L (136-145) Potassium Level 4.7 mmol/L (3.5-5.1) Chloride Level 108 mmol/L (98-107) Carbon Dioxide Level 23 mmol/L (21-32) Anion Gap 10 (6-14) Blood Urea Nitrogen 64 mg/dL (8-26) Creatinine 4.4 mg/dL (0.7-1.3) Estimated GFR (Cockcroft-Gault) 16.4 Glucose Level 101 mg/dL (70-99) Calcium Level 9.3 mg/dL (8.5-10.1) Test 07/27/18 11:29 Glucose (Fingerstick) 158 mg/dL (70-99) Microbiology 07/22/18 Blood Culture - Final, Complete NO GROWTH AFTER 5 DAYS 07/25/18 Anaerobic/Aerobic Culture, Resulted Pending 07/25/18 Anaerobic Culture Result 1 (ADORE), Resulted Pending 07/25/18 Aerobic Culture, Resulted Pending 07/25/18 Aerobic Culture Result 1 (ADORE), Resulted Pending 07/25/18 Gram Stain - Final, Resulted 07/25/18 Gram Stain Result 1 (ADORE) - Final, Resulted 07/25/18 Gram Stain Result 2 (ADORE) - Final, Resulted Medications Current Medications Albuterol Sulfate (Ventolin Neb Soln) 2.5 mg 1X ONCE NEB Last administered on 07/22/18at 09:05; Start 07/22/18 at 08:30; Stop 07/22/18 at 09:07; Status DC Sodium Chloride 1,000 ml @ 1,000 mls/hr 1X ONCE IV Last administered on at 10:20; Start 07/22/18 at 10:15; Stop 07/22/18 at 11:14; Status DC Sodium Polystyrene Sulfonate (Kayexalate) 15 gm 1X ONCE PO Last administered on 07/22/18at 10:20; Start 07/22/18 at 10:15; Stop 07/22/18 at 10:16; Status DC Lisinopril (Prinivil) 20 mg DAILY PO Last administered on 07/23/18at 07:51; Start 07/22/18 at 14:00; Stop 07/23/18 at 15:26; Status DC Nitroglycerin (Nitro-Dur) 1 patch DAILY TD Last administered on 07/27/18at 08:27 ; Start 07/22/18 at 14:00 Furosemide (Lasix) 40 mg BID92 IV Last administered on 07/23/18at 14:33; Start at 14:00; Stop 07/23/18 at 15:21; Status DC Spironolactone (Aldactone) 25 mg DAILY PO Last administered on 07/23/18 07:51; Start 07/22/18 at 14:00; Stop 07/23/18 at 15:26; Status DC Heparin Sodium (Porcine) (Heparin Sodium) 5,000 unit Q12HR SQ Last administered on 07/23/18 21:14; Start 07/22/18 at 14:00; Stop 07/24/18 at 10:35; Status DC Sodium Chloride (Normal Saline Flush) 3 ml QSHIFT PRN IV AFTER MEDS AND BLOOD DRAWS; Start 07/22/18 at 13:00 Ondansetron HCl (Zofran) 4 mg PRN Q6HRS PRN IV NAUSEA/VOMITING; Start 07/22/18 at 13:00; Stop 07/23/18 at 16:58; Status DC Zolpidem Tartrate (Ambien) 5 mg PRN QHS PRN PO INSOMNIA, MAY REPEAT IN 1HR; Start 07/22/18 at 13:00 Info (Non-Icu Electrolyte Protocol) 1 ea PRN DAILY PRN MC SEE COMMENTS; Start 07/22/18 at 13:00 Acetaminophen/ Hydrocodone Bitart (Lortab 5/325) 1 tab PRN Q4HRS PRN PO MILD PAIN; Start 07/22/18 at 13:00 Acetaminophen (Tylenol) 650 mg PRN Q6HRS PRN PO Headaches, Temp > 101.5F Last administered on 07/23/18at 10:30; Start 07/22/18 at 13:00 Senna/Docusate Sodium (Senna Plus) 1 tab BID PO Last administered on 07/27/18at 08:23; Start 07/22/18 at 21:00 Lactulose (Lactulose) 20 gm PRN Q12HR PRN PO CONSTIPATION; Start 07/22/18 at 13: 00 Insulin Human Lispro (HumaLOG) 0-5 UNITS TIDWMEALS SQ Last administered on 07/27at 12:09; Start 07/22/18 at 17:00 Dextrose (Dextrose 50%-Water Syringe) 12.5 gm PRN Q15MIN PRN IV SEE COMMENTS; Start 07/22/18 at 16:45 Aspirin (Huseyin Aspirin) 325 mg 1X ONCE PO Last administered on 07/22/18 17:18 ; Start 07/22/18 at 17:15; Stop 07/22/18 at 17:16; Status DC Aspirin (Ecotrin) 81 mg DAILYWBKFT PO Last administered on 07/27/18 08:23; Start 07/23/18 at 08:00 Carvedilol (Coreg) 3.125 mg BIDWMEALS PO Last administered on 07/27/18 08:24; Start 07/22/18 at 17:30 Benzonatate (Tessalon Perle) 100 mg PRN Q6HRS PRN PO COUGH Last administered on 07/26/18 21:10; Start 07/22/18 at 21:00 Guaifenesin/ Codeine Phosphate (Robitussin Ac) 5 ml PRN Q6HRS PRN PO COUGH, 1ST CHOICE Last administered on 07/23/18 22:31; Start 07/22/18 at 23:00; Stop 04/01 at 00:36; Status DC Furosemide (Lasix) 40 mg DAILY IV Last administered on 07/25/18 09:12; Start 07/24/18 at 09:00; Stop 07/25/18 at 15:03; Status DC Throat Lozenges (Cepacol Sore Throat Lozenge) 1 aissatou PRN Q2HRS PRN PO SORE THROAT Last administered on 07/23/18 22:31; Start 07/23/18 at 17:00 Ondansetron HCl (Zofran) 4 mg PRN Q6HRS PRN IV NAUSEA/VOMITING Last administered on 07/24/18 08:15; Start 07/23/18 at 17:00 Furosemide (Lasix) 40 mg BID92 PO Last administered on 07/26/18 14:06; Start 07/25/18 at 15:00; Stop 07/26/18 at 14:08; Status DC Furosemide (Lasix) 40 mg DAILY PO Last administered on 07/27/18 08:30; Start 07/27/18 at 09:00 Active Scripts Active Reported Glipizide 5 Mg Tablet 1 Tab PO BID Lisinopril 2.5 Mg Tablet Unknown Dose PO DAILY Vitals/I & O Vital Sign - Last 24 Hours 07/26/18 07/26/18 07/26/18 07/26/18 13:50 14:07 17:16 19:51 Temp 97.5 97.5 Pulse 87 88 86 Resp 18 B/P (MAP) 149/89 (109) 169/104 140/95 (110) Pulse Ox 81 93 O2 Delivery Room Air Nasal Cannula O2 Flow Rate 2.0 07/26/18 07/26/18 07/27/18 07/27/18 20:40 22:47 03:02 07:00 Temp 98.0 97.4 98.1 98.0 97.4 98.1 Pulse 90 91 80 Resp 16 18 20 B/P (MAP) 154/98 (116) 153/96 (115) 159/90 (113) Pulse Ox 94 93 94 O2 Delivery Room Air Nasal Cannula Nasal Cannula Nasal Cannula O2 Flow Rate 2.0 2.0 2.0 07/27/18 07/27/18 07/27/18 07:28 08:24 11:00 Temp 97.3 97.3 Pulse 80 84 Resp 18 B/P (MAP) 159/90 151/84 (106) Pulse Ox 95 O2 Delivery Nasal Cannula Room Air O2 Flow Rate 2.0 Intake and Output 07/26/18 07/26/18 07/27/18 15:00 23:00 07:00 Intake Total 520 ml 400 ml Output Total 175 ml Balance 520 ml -175 ml 400 ml KAY CARROLL III DO Jul 27, 2018 13:53
--- NOTE | 2018-07-27 14:53 | PDOC ---
CARDIO Progress Notes Date and Time Date of Service 07/27/2018 Time of Evaluation 1420 Subjective Subjective: No Chest Pain, No shortness of breath, No Palpitations Vitals Vitals Vital Signs Date Time Temp Pulse Resp B/P (MAP) Pulse Ox O2 Delivery O2 Flow Rate FiO2 07/27/18 11:00 97.3 84 18 151/84 (106) 95 Room Air 97.3 07/27/18 07:28 2.0 Weight Weight [ ] Input and Output Intake and Output Intake and Output 07/27/18 06:59 Intake Total 920 ml Output Total 175 ml Balance 745 ml Intake Oral 920 ml Output Urine Total 175 ml # Voids 3 # Bowel Movements 1 Laboratory Labs Laboratory Tests Test 07/26/18 17:13 07/26/18 21:13 07/27/18 03:55 07/27/18 07:53 Glucose (Fingerstick) 234 mg/dL (70-99) 113 mg/dL (70-99) 85 mg/dL (70-99) White Blood Count 3.9 x10^3/uL (4.0-11.0) Red Blood Count 3.42 x10^6/uL (4.30-5.70) Hemoglobin 9.4 g/dL (13.0-17.5) Hematocrit 29.7 % (39.0-53.0) Mean Corpuscular Volume 87 fL (79-100) Mean Corpuscular Hemoglobin 28 pg (25-35) Mean Corpuscular Hemoglobin Concent 32 g/dL (31-37) Red Cell Distribution Width 14.6 % (11.5-14.5) Platelet Count 414 x10^3/uL (140-400) Neutrophils (%) (Auto) 56 % (31-73) Lymphocytes (%) (Auto) 29 % (24-48) Monocytes (%) (Auto) 11 % (0-9) Eosinophils (%) (Auto) 2 % (0-3) Basophils (%) (Auto) 2 % (0-3) Neutrophils # (Auto) 2.2 x10^3uL (1.8-7.7) Lymphocytes # (Auto) 1.1 x10^3/uL (1.0-4.8) Monocytes # (Auto) 0.4 x10^3/uL (0.0-1.1) Eosinophils # (Auto) 0.1 x10^3/uL (0.0-0.7) Basophils # (Auto) 0.1 x10^3/uL (0.0-0.2) Sodium Level 141 mmol/L (136-145) Potassium Level 4.7 mmol/L (3.5-5.1) Chloride Level 108 mmol/L (98-107) Carbon Dioxide Level 23 mmol/L (21-32) Anion Gap 10 (6-14) Blood Urea Nitrogen 64 mg/dL (8-26) Creatinine 4.4 mg/dL (0.7-1.3) Estimated GFR (Cockcroft-Gault) 16.4 Glucose Level 101 mg/dL (70-99) Calcium Level 9.3 mg/dL (8.5-10.1) Test 07/27/18 11:29 Glucose (Fingerstick) 158 mg/dL (70-99) Microbiology Micro Microbiology 07/22/18 Blood Culture - Final, Complete NO GROWTH AFTER 5 DAYS 07/25/18 Anaerobic/Aerobic Culture, Resulted Pending 07/25/18 Anaerobic Culture Result 1 (ADORE), Resulted Pending 07/25/18 Aerobic Culture, Resulted Pending 07/25/18 Aerobic Culture Result 1 (ADORE), Resulted Pending 07/25/18 Gram Stain - Final, Resulted 07/25/18 Gram Stain Result 1 (ADORE) - Final, Resulted 07/25/18 Gram Stain Result 2 (ADORE) - Final, Resulted Review of Systems Constitutional: yes: weakness, alert, oriented Ears/Nose/Throat: Yes: no symptom reported Eyes: Yes: no symptom reported Pulmonary: Yes dyspnea Cardiovascular: Yes no symptom reported Gastrointestional: Yes: no symptom reported Genitourinary: Yes: no symptom reported Musculoskeletal: Yes: no symptom reported Skin: Yes no symptom reported Psychiatric/Neurological: Yes: pre-existing deficit Endocrine: Yes: no symptom reported Physical Exam HEENT: Neck Supple W Full Motion Chest: Symmetric LUNGS: Clear to Auscultation Heart: S1S2, RRR (Sr with no significant ectopies) Abdomen: Soft N/T Extremities: No Calf Tenderness, Other (trace to 1+ bilateral LE pitting edema) Neurology: alert, oriented Assessment Assessment 1. Acute respiratory failure secondary to acute on chronic systolic heart failure 2. Acute on chronic systolic heart failure. 2-D echo showed LVEF 30-35%. Better compensated. Continue current medical regimen. 3. NSTEMI; peaked at trop 1.1. Probable demand ischemia in the setting of renal failure. CP free 4. Acute on chronic renal insufficiency: Cr at 4.4 baseline appears to be CKD4. Nephrology following 5. Hypertension: still at high end 6. DM2 Recommendations [facility] despite his age. Discussed significantly in regards to treatment plan. He will call [place] system to obtain appointment with cardiology in 1-2 weeks. 2. Discussed with staff about treatment plan. Continue with daily wt, home BP monitoring and FR. 2. Outpt stress test per his spout positioner 3. Smoking cessation 4. Continue with lasix. No ACEi/ARB with significant renal insufficiency. 5. Increase coreg and start on norvasc. 6. Smoking cessation FLORINA TEJEDA APRN Jul 27, 2018 14:53
[2018-07-27 15:00] VITALS: BP 165/84
[2018-07-27] MEDS ORDERED: ASPI325T11 PO (15:05)
[2018-07-27] MEDS ORDERED: ATOR20TA PO (15:06)
[2018-07-27] MEDS ORDERED: AMLO5TAB4 PO (15:06)
[2018-07-27] MEDS ORDERED: CARV6.25 PO (15:07)
[2018-07-27] MEDS ORDERED: ASPI-630 PO ×2 (15:36→15:37)
[2018-07-27] MEDS ORDERED: FURO40TA4 PO (15:36)
[2018-07-27 15:54] VITALS: BP 165/95
[2018-07-27] MEDS ORDERED: CARVEDILOL 6.25 MG TABLET. PO SCH (17:00)
--- NOTE | 2018-07-27 17:06 | NUR ---
Patient discharge education completed by the patients medical team. Given scripts for lasix, lipitor, norvasc, and coreg. [facility]. He was also told to machine operator hop picker some aspirin over the counter to take daily as well. Patient states understanding with all of his medication orders and the new medications prescribed. He also is aware to not take his lisinopril at this time and he stated that he is able to check his blood pressure and blood sugars on a daily basis at home. No concerns from the patient noted at this time. He is aware to follow up with his PCP, Dr Osorio, and a bacteriologist fishery upon discharge today. Will continue to monitor until discharged and answer any questions that may arrive before then.
--- NOTE | 2018-07-27 17:48 | NUR ---
Patient refused to have his blood sugar checked this evening in which he then refused his insulin since wont be taking it at home. Patient eager to go home, at this time he states his ride is on their way. Will continue to monitor.
--- NOTE | 2018-07-27 17:54 | DS ---
DATE OF DISCHARGE: 07/27/2018 ADMISSION DIAGNOSES: Pulmonary edema, elevated troponin, chronic kidney disease stage 3, congestive heart failure, acute on chronic systolic and diastolic; hypertension, diabetes, normocytic anemia. DISCHARGE DIAGNOSES: Resolving congestive heart failure, chronic renal insufficiency, baseline creatinine today of 4.4, diabetes, hypertension. CONSULTS: 1. Rocael Osorio MD. 2. Neto Casillas MD. PROCEDURES: Thoracentesis (that showed negative for malignant cells). HOSPITAL COURSE: The patient is a pleasant elderly male who basically presented with shortness of breath, was noted to be in heart failure. He has chronic renal insufficiency as well. He was admitted. We diuresed him. We consulted Dr. Osorio and he did end up having to go for thoracentesis. We analyzed the fluid, it is not malignant. He was scheduled to discharge yesterday, but he was a little hypoxic. Today, we got him set up to go home. I did see and examined him this morning, he looked good. We will discharge him home with close outpatient followup. DISPOSITION: Home. ACTIVITY: As tolerated. DIET: Low sodium. MEDICATIONS: Please see the MRAD. TOTAL TIME: 31 minutes. KAY CARROLL DO DR: MEG/elke JOB#: [id number] / [id number]
--- NOTE | 2018-07-27 19:00 | NUR ---
Patient left the building with family around 1850 with all of his belongings and discharge paperwork/scripts. No concerns noted upon discharge.
[2018-07-27] MEDS ORDERED: ATORVASTATIN CALCIUM 20 MG TABLET PO SCH (21:00)
== END 2018-07-27 19:00 | disposition home or self-care (01) | DRG 280 ==
LOC: ER 08:16 → 2 NORTH 10:07
PROVIDERS: ADMIT Internal Medicine; ATTEND Internal Medicine
PROC: 0W993ZZ Drainage of Right Pleural Cavity, Percutaneous Approach (ICD-10-PCS; principal; 2018-07-25)
DX: I21.4 Non-ST elevation (NSTEMI) myocardial infarction (principal); I50.43 Acute on chronic combined systolic (congestive) and diastolic (congestive) heart failure; J96.01 Acute respiratory failure with hypoxia; I13.0 Hypertensive heart and chronic kidney disease with heart failure and stage 1 through stage 4 chronic kidney disease, or unspecified chronic kidney disease; N17.9 Acute kidney failure, unspecified; E44.0 Moderate protein-calorie malnutrition; N18.4 Chronic kidney disease, stage 4 (severe); D64.9 Anemia, unspecified; E11.22 Type 2 diabetes mellitus with diabetic chronic kidney disease; Z68.22 Body mass index [BMI] 22.0-22.9, adult; E87.5 Hyperkalemia; J44.9 Chronic obstructive pulmonary disease, unspecified; Z88.0 Allergy status to penicillin
CPT/HCPCS: 32555; 36415; 71046; 71250; 76770; 80048; 80053; 80061; 81001; 82962; 83036; 83605; 83615; 83735; 83880; 84145; 84157; 84484; 85025; 85610; 87040; 87071; 87075; 87804; 93005; 93306; 94618; 94640; 96360; J1644; J1815; J1940; J2405; J7030; J7613; 97110; 97116; 99285-25; G0378